=== PATIENT | male | born 1950 | race Caucasian/White ===

== ENCOUNTER → 2017-05-09 | Day surgery (SDC) | payer BC ==
[2017-05-01 13:44] VITALS: BMI 37.0
[~2017-05-09] VITALS: Ht 177.8 cm; Wt 116.8 kg
[~2017-05-09] MED LIST: AMIL5TAB15 PO; ASPCH81X PO; GLC/500 PO; HYDR-4717 PO; LEVO75TA5 PO; LIDOCAINE HCL 2% 2 ML VIAL (20MG/ML) ONE; LNX125 PO; LOSA1TAB38 PO; METO25TA3 PO; OMEGCAP2 PO; POTA1TAB97 PO; PROPOFOL IV EMULSION 10 MG/ML 20 ML VIAL IV ONE; ROSU5TAB PO; SODIUM CHLORIDE 0.9% 500ML 500 ML IV ONE; TERA5CAP PO; WARF5TAB90 PO
[2017-05-09 09:48] VITALS: Ht 177.8 cm; Wt 116.8 kg
--- NOTE | 2017-05-09 09:58 | Endo History and Physical ---
History & Physical Date of Service: May 09, 2017. Chief Complaint: poss hem stools Referring Physician: dr. galvan History of Present Illness 66 yo presenting for colonoscopy for heme positive stool Past Medical History Atrial Fibrillation, Arthritis, Male Genitourinary Prob., Sleep Apnea, Hypertension, Thyroid Disease Past Surgical History Hx Cardiac Surgery: Yes (HEART CATH-NO STENTS) Hx Internal Defibrillator: No Hx Pacemaker: No Hx Abdominal Surgery: Yes (UMBILICAL HERNIA WITH MESH) Hx of Implantable Prosthesis: No Hx Post-Op Nausea and Vomiting: No Hx Cancer Surgery: No Hx Thoracic Surgery: No Hx Orthopedic: No Hx Urinary Tract Surgery: Yes (CYSTOSCOPY WITH STENTS X 2, URETHRA REPAIR WITH GRAFTING) Family History None Social History Smoking Status: Never Smoker Hx Substance Use: No Hx Alcohol Use: Yes (RARELY) Allergies Coded Allergies: Amlodipine (Verified Allergy, Severe, LE swelling and calves got "rock hard", 05/01/17) Penicillins (Verified Allergy, Mild, RASH, 05/01/17) Amoxicillin (Verified Allergy, Unknown, RASH, 05/01/17) Chlorhexidine (Verified Allergy, Unknown, RASH, SKIN TURNED RED AND PEELED , 05/01/17) Current Medications Reported Home Medications Medications Dose Route/Sig Max Daily Dose Days Date Category Dose Instructions Toprol Xl (Metoprolol Succinate) 25 Mg Tabcr 25 Mg PO QAM 05/01/17 Reported Aspirin Chewable (Aspirin) 81 Mg Chew 81 Mg PO Q2D 05/01/17 Reported Fish Oil (Mina-3 Fatty Acids) 1 Cap Cap 1 Cap PO QAM 05/01/17 Reported Crestor (Rosuvastatin Calcium) 5 Mg Tab 5 Mg PO Q2D 05/01/17 Reported Cozaar (Losartan Potassium) 100 Mg Tab 100 Mg PO QPM 05/01/17 Reported Levothyroxine Sodium 75 Mcg Tab 1 Tab PO QAM 90 05/01/17 Reported Hytrin (Terazosin HCl) 5 Mg Cap 5 Mg PO HS 05/01/17 Reported Amiloride Hcl 5 Mg Tab 1 Tab PO QPM 05/01/17 Reported Glucophage (Metformin Hcl) 500 Mg Tab 500 Mg PO QAM 05/01/17 Reported Digoxin 0.125 Mg Tab 1 Tab PO QAM 05/01/17 Reported Coumadin (Warfarin Sodium) 5 Mg Tab 5 Mg PO 6XWK 05/01/17 Reported Coumadin (Warfarin Sodium) 5 Mg Tab 0.5 Tab PO WK 05/01/17 Reported K-Tab (Potassium Chloride) 20 Meq Tab 1 Tab PO TID 05/01/17 Reported Apresoline (Hydralazine Hcl) 50 Mg Tab 25 Mg PO HS 05/01/17 Reported Apresoline (Hydralazine Hcl) 50 Mg Tab 50 Mg PO BID 05/01/17 Reported TAKES IN AM AND AT NOON Vital Signs Weight (Kilograms): 116.82 Height (Feet): 5 Height (Inches): 10 Physical Exam General Appearance: WD/WN, no apparent distress Respiratory/Chest: Respiratory effort: no dyspnea Auscultation: breath sounds normal, CTA except as noted Cardiovascular: Apical Impulse: not displaced Heart Auscultation: RRR, normal S1, normal S2 Abdomen: Bowel Sounds: normal Inspection & Palpation: soft, non-distended Assessment and Plan 66 yo presenting for colonoscopy for heme positive stools
--- NOTE | 2017-05-09 10:52 | GI REPORT ---
Procedure Date: 05/09/2017 9:53 AM Procedure: Colonoscopy Indications: Screening for colorectal malignant neoplasm Medicines: General Anesthesia Complications: No immediate complications. Estimated Blood Loss: Estimated blood loss: none. Procedure: Pre-Anesthesia Assessment: - Pre-Anesthesia Assessment: - Prior to the procedure, a History and Physical was performed, and patient medications, allergies and sensitivities were reviewed. The patient's tolerance of previous anesthesia was reviewed. Please see [facility] for complete details. - The risks and benefits of the procedure and the sedation options and risks were discussed with the patient. All questions were answered and informed consent was obtained. - Patient identification and proposed procedure were verified prior to the procedure by the physician and the nurse. The procedure was verified in the pre-procedure area in the procedure room. After obtaining informed consent, the endoscope was passed carefully and meticuously under direct vision and only advanced when the lumen was clearly identified, C02 insuflation was utilized throughout the entirity of the procedure. Throughout the procedure, the patient's blood pressure, pulse, and oxygen saturations were monitored continuously. After I obtained informed consent, the scope was passed under direct vision. Throughout the procedure, the patient's blood pressure, pulse, and oxygen saturations were monitored continuously. The Scope was introduced through the anus and advanced to the terminal ileum, with identification of the appendiceal orifice and IC valve. The colonoscopy was performed without difficulty. The patient tolerated the procedure well. The quality of the bowel preparation was good. Findings: Four sessile polyps were found in the ascending colon. The polyps were 3 to 4 mm in size. These polyps were removed with a cold snare. Resection and retrieval were complete. Two sessile polyps were found in the transverse colon. The polyps were 3 to 5 mm in size. These polyps were removed with a cold snare. Resection and retrieval were complete. Internal hemorrhoids were found during retroflexion. The terminal ileum appeared normal. The exam was otherwise without abnormality on direct and retroflexion views. Impression: - Four 3 to 4 mm polyps in the ascending colon, removed with a cold snare. Resected and retrieved. - Two 3 to 5 mm polyps in the transverse colon, removed with a cold snare. Resected and retrieved. - Internal hemorrhoids. - The examined portion of the ileum was normal. - The examination was otherwise normal on direct and retroflexion views. Recommendation: - Discharge patient to home (with escort). - Await pathology results. - Repeat colonoscopy in 3 years for surveillance based on pathology results. - Re-start coumadin tomorrow. Jarad Raymundo MD 05/09/2017 10:52:36 AM This report has been signed electronically. Note Initiated On: 05/09/2017 9:53 AM I attest to the content of the Intraoperative Record and orders documented therein, exceptions below
--- NOTE | 2017-05-09 10:55 | Discharge Instructions ---
Endoscopy Patient Instructions Date / Procedure(s) Performed May 09, 2017. Colonoscopy Allergy Information Coded Allergies: Amlodipine (Verified Allergy, Severe, LE swelling and calves got "rock hard", 05/01/17) Penicillins (Verified Allergy, Mild, RASH, 05/01/17) Amoxicillin (Verified Allergy, Unknown, RASH, 05/01/17) Chlorhexidine (Verified Allergy, Unknown, RASH, SKIN TURNED RED AND PEELED , 05/01/17) Discharge Date / Findings May 09, 2017. Findings: Four sessile polyps were found in the ascending colon. The polyps were 3 to 4 mm in size. These polyps were removed with a cold snare. Resection and retrieval were complete. Two sessile polyps were found in the transverse colon. The polyps were 3 to 5 mm in size. These polyps were removed with a cold snare. Resection and retrieval were complete. Internal hemorrhoids were found during retroflexion. The terminal ileum appeared normal. The exam was otherwise without abnormality on direct and retroflexion views. Recommendation: - Discharge patient to home (with escort). - Await pathology results. - Repeat colonoscopy in 3 years for surveillance based on pathology results. - Re-start coumadin tomorrow. Medication Instructions Stopped Medication(s): coummadin stopped saturday 4 days Provider Instructions Activity Restrictions - No exercising or heavy lifting for 24 hours. - Do not drink alcohol the day of the procedure. - Do not drive a car or operate machinery until the day after the procedure. - Do not make any important decisions or sign important papers in 24 hours after the procedure. Following Day: - Return to full activity which may include returning to work/school. Diet Start your diet with liquids and light foods (jello, soup, juice, toast). Then eat your usual diet if not nauseated. Treatment For Common After Affects For mild abdominal pain, bloating, or excessive gas: - Rest - Eat lightly - Lie on right side Follow-Up Information Follow-up with dr. galvan as scheduled Anesthesia Information What You Should Know You have had a procedure that required some medicine to reduce anxiety and discomfort. This treatment is called moderate sedation. After receiving the treatment, you may be sleepy, but you will be able to breathe on your own. The effects of the treatment may last for several hours. Follow these instructions along with Activity/Diet recommendations noted above: * Do NOT do anything where dizziness or clumsiness would be dangerous. * Rest quietly at home today, then you can be up and about tomorrow. * Have a responsible person stay with you the rest of today. * You may have had an I.V. today. If so, you may take the dressing off later today. Recommendations Call your doctor if: * Trouble breathing * Continuous vomiting for more than 24 hours * Temperature above 101 degrees * Severe abdominal pain or bloating * Pain not relieved by pain medicine ordered * There is increased drainage or redness from any incision * A large amount of rectal bleeding greater than 2-3 tablespoons. (If you had a polyp/s removed or have hemorrhoids, a small amount of blood - from the rectum is to be expected.) * You have any unanswered questions or concerns. IN THE EVENT OF A SERIOUS EMERGENCY, GO TO THE NEAREST EMERGENCY ROOM Your discharge instructions were prepared by provider Jarad Raymundo. Patient Instructions Signature Page Becca Edwards Patient (or Guardian) Signature/Date: I have read and understand the instructions given to me by my caregivers. Caregiver/RN/Doctor Signature/Date: The above-named patient and/or guardian has received patient instructions on this date. + Original Patient Signature Page (only) stays with chart. Please make copy for patient.
--- NOTE | 2017-05-09 11:25 | Anesthesiology Progress Note ---
Anesthesia Post Op Note Date & Time May 09, 2017 at 11:22 Vital Signs Pain Intensity: 0 Vital Signs Past 12 Hours Date Time Temp Pulse Resp B/P (MAP) Pulse Ox O2 Delivery O2 Flow Rate FiO2 05/09/17 09:56 36.7 80 18 175/96 (122) 96 Room Air Notes Mental Status: alert / awake / arousable, participated in evaluation Pt Amnestic to Procedure: Yes Nausea / Vomiting: adequately controlled Pain: adequately controlled Airway Patency, RR, SpO2: stable & adequate BP & HR: stable & adequate Hydration State: stable & adequate Anesthetic Complications: no major complications apparent Pt has known high blood pressure. He was 170s/90 on admission. He did not take his blood pressure pills today. In recovery, his blood pressure is 180s/100s. I spoke to the patient and his , who is a RN, and I instructed him to take his blood pressure pills once he got home. They were both understanding. Pt is otherwise stable without any symptoms.
[2017-05-09 11:34] VITALS: BP 188/105; PULSE 78; O2SAT 94
== END | disposition home or self-care (01) ==
LOC: C.GI 09:11
PROVIDERS: ATTEND Internal Medicine
DX: K92.1 Melena (principal); D12.2 Benign neoplasm of ascending colon; D12.3 Benign neoplasm of transverse colon; K64.8 Other hemorrhoids; I10 Essential (primary) hypertension; I48.91 Unspecified atrial fibrillation; G47.33 Obstructive sleep apnea (adult) (pediatric); Z88.1 Allergy status to other antibiotic agents; Z88.0 Allergy status to penicillin; Z98.890 Other specified postprocedural states; Z79.82 Long term (current) use of aspirin; Z79.899 Other long term (current) drug therapy; Z79.01 Long term (current) use of anticoagulants

== ENCOUNTER 2018-08-23 13:51 | Inpatient (IN) ==
[2018-08-23] MEDS ORDERED: SODIUM CHLORIDE 0.9% 1000ML 1,000 ML IV SCH ×2 (14:15→20:22)
[2018-08-23 14:56] LABS: Basophils # (auto) 0.01 K/uL (0-0.2); Basophils % (auto) 0.1 %; Hematocrit (blood only) 47.1 % (42-52); Hemoglobin 15.9 g/dL (14.0-18.0); Immature Granulocytes # (auto) 0.06 K/uL (0.00-0.02); Immature Granulocytes % (auto) 0.8 %; Lymphocytes # (auto) 0.78 K/uL (1.2-3.4); Lymphocytes % (auto) 9.8 %; Mean Corpuscular Hgb Conc 33.8 g/dL (32-36); Mean Corpuscular Volume 94.4 fL (80-100); Mean Platelet Volume 10.2 fL (7.4-10.4); Monocytes # (auto) 0.63 K/uL (0.11-0.59); Monocytes % (auto) 7.9 %; Neutrophils # (auto) 6.52 K/uL (1.4-6.5); Neutrophils % (auto) 81.4 %; Platelet Count 169 K/uL (130-400); RDW Coefficient of Variation 13.7 % (11.5-14.5); RDW Standard Deviation 46.8 fL (36.4-46.3); Red Blood Count 4.99 M/uL (4.7-6.1)
[2018-08-23 15:10] LABS: Alanine Aminotransferase 31 U/L (12-78); Albumin Level 3.4 gm/dl (3.4-5.0); Aspartate Aminotransferase 21 U/L (15-37); BUN Creatinine Ratio 8.6 (10-20); Blood Urea Nitrogen 10 mg/dl (7-18); Calcium 8.5 mg/dl (8.5-10.1); Carbon Dioxide 29 mmol/L (21-32); Chloride 99 mmol/L (98-107); Creatinine Clr Calc Pharmacy 83.1 ml/min; Est GFR (African American) 78.9; Est GFR (Non-African American) 68.1; Glucose 162 mg/dl (70-99); Magnesium 1.8 mg/dl (1.8-2.4); Potassium 3.2 mmol/L (3.5-5.1); Sodium 134 mmol/L (136-145)
--- NOTE | 2018-08-23 15:13 | Emergency Department Note ---
Entered by Augusto Morris acting as a scribe for ED Provider Note CHIEF COMPLAINT: Weakness HISTORY OF PRESENT ILLNESS: The patient is a 67 year old male that presents to the ED with complaints of constant generalized weakness that started about 4 days ago. He also has had a low grade fever, cough, and has been urinating more frequently. He did fall prior to arrival after getting dizzy and hit his left shoulder but did not lose consciousness or hit his head. The patient did miss his noon time medications which consist of potassium, Losartan, Digoxin, and Hydralazine. All of these medications have been consistent except for his Losartan that recently was lowered. He also fell on the ice 4 days ago as well as a recent fall in his garage. Per the the patient does run a low potassium at baseline. He does have a history of Afib and is on Coumadin. He notes no relieving factors. Pt denies LOC, headache, chills, diaphoresis, visual changes, neck pain, chest pain, nausea, vomiting, abdominal pain, back pain, melena, hematochezia, numbness, lymphadenopathy, rash, or other complaints. REVIEW OF SYSTEMS: See HPI for pertinent positives and negatives. A total of ten systems were reviewed and were otherwise negative. PMHx/PSHx: UTI, Afib (on Coumadin), HLD, hypertension, kidney stonespneumonia, hernia repair, chronic rhinitis, sinus surgery, kidney surgery, and tonsillectomy SOCIAL HISTORY: Patient lives at home. PHYSICAL EXAM: GENERAL: Awake, alert, mild ill-appearing, in no distress HENT: Normocephalic, atraumatic. Oropharynx unremarkable. EYES: Normal conjunctiva. Sclera non-icteric. NECK: Inspection normal. Non-tender. Supple. No nuchal rigidity. FROM. No masses. RESPIRATORY: Clear to auscultation. No wheezes. No rales. Normal respiratory effort. CARDIAC: Normal rate. Irregular rhythm. No murmurs. No rubs. Extremities warm and well perfused. Pulses equal. No JVD. GI: Soft, non-distended. No tenderness to palpation. No rebound or guarding. No masses. RECTAL: Deferred. MUSCULOSKELETAL: Chest examination reveals no tenderness. The back is symmetrical on inspection without obvious abnormality. There is no CVA tenderness to palpation. No joint edema. Contusion on the left posterior shoulder. LOWER EXTREMITIES: Calves are equal size bilaterally and non-tender. No edema. No discoloration. NEURO: Normal sensorium. No sensory or motor deficits noted. SKIN: No rash or jaundice noted. EMERGENCY DEPARTMENT COURSE: 1414: Past medical records reviewed. The patient was evaluated in room B10, and a complete history and physical examination were performed. 1608: I updated the patient and he is doing well. 1712: The patient is still doing well and I updated him on labs and plan. 1747: I spoke to Yolanda Berumen PA-C about the patient's case and she is accepting him for further evaluation. 1757: I updated the patient on the admission. MEDICAL DECISION MAKING: Nursing notes reviewed and agree them. Additional history obtained from patient's . The patient's history was concerning for weakness. Differential diagnosis: Etiologies such as metabolic, infection, hypo/hyperglycemia, electrolyte abnormalities, cardiac sources, intracerebral event, toxicologic, neurologic, as well as others were entertained. Physical examination: As above. ER treatment provided: IV Lock Normal saline hydration phototypesetting equipment monitor Patient was given 75 mg of hydralazine and 75 mg of losartan that he takes midday at home. On reassessment the patient felt better. IV Rocephin Oral Tamiflu Diagnostics interpretation by me: ECG: Shows A. fib with lateral T wave inversions which are new. The labs revealed an unremarkable CBC. Mild hypokalemia noted as well as hyperglycemia on chemistry panel. Troponin negative. Urinalysis concerning for infection. Influenza testing positive. Imaging studies: Chest x-ray negative for pneumonia. The patient has acute ECG changes. He has influenza. He is weak. He also has a UTI. Consultation: A consultation was placed with the hospitalist. The case was discussed and diagnostics were reviewed. The patient was evaluated in the ER for further treatment. IMPRESSION: Influenza A Acute elective cardiogram changes Influenza Hypokalemia PLAN: Evaluated by hospitalist The scribe's documentation has been prepared under my direction and personally reviewed by me in its entirety. I confirm that the note above accurately reflects all work, treatment, procedures, and medical decision making performed by me. Impression & Plan Influenza A Past Med/Surg History Medical History History of recurrent UTI (urinary tract infection) HTN (hypertension) (Chronic) HLD (hyperlipidemia) (Chronic) Atrial fibrillation (Chronic) Metabolic syndrome (Chronic) RANDALL (obstructive sleep apnea) (Chronic) Hypothyroidism (Chronic) Chronic rhinitis (Chronic 06/12/11) Chronic rhinitis Pyelonephritis Sepsis UTI (urinary tract infection) Surgical History History of lithotripsy (Chronic) History of kidney surgery (Resolved) "transurethral removal obstruct/ureter renal pelvis 02/13/08" History of sinus surgery (Resolved) History of hernia repair (Resolved) "umbilical hernia repair performed by Dr. Abrams 11/2014" History of tonsillectomy and adenoidectomy (Resolved) H/O sinus surgery History of kidney surgery removal of transurethreal obstruction History of tonsillectomy and adenoidectomy Hx of umbilical hernia repair Family History Father Heart attack Lymphoma Mother T2DM (type 2 diabetes mellitus) Pancreatic cancer Social History marital status: Current Living Situation: Spouse Other Information That Helps Us Care for You: No Feels Safe at Home: Yes Safety Concerns: Feels Safe At This Time Smoking Status: Never smoker Do You Dip or Chew Tobacco: No Hx Alcohol Use: No Hx Substance Use: No Beliefs That Will Affect Care: Mormonism Mormonism Beliefs: Catholic Preferred Language: Chilean Communication Ability: Effective Art Therapy Certified Supervisor Required: No Results & Data Vital Signs Vital Signs - 24 hr 08/23/18 13:56 08/23/18 14:30 08/23/18 15:52 Temperature 37.9 C H Temperature Source Oral Sepsis Recent Fever Within 48 Hours No Sepsis New/Unexplained Change in Mental Status No Sepsis Action Taken by Nursing No Action Required Pulse Rate 107 H Pulse Rate [Left Apical] 88 Pulse Rhythm Irregular Pulse Rhythm [Left Apical] Regular Pulse Strength [Left Apical] Normal Respiratory Rate 20 Respiratory Effort / Characteristics Non-Labored Spontaneous Respiratory Depth Normal Normal Respiratory Pattern Regular Blood Pressure 196/111 H Blood Pressure [Left Arm] 177/105 H Blood Pressure Mean 139 Blood Pressure Mean [Left Arm] 129 Blood Pressure Position [Left Arm] Lying Pulse Oximetry 92 95 91 Oxygen Delivery Method Room Air Room Air Room Air 08/23/18 16:21 08/23/18 19:32 Temperature Temperature Source Sepsis Recent Fever Within 48 Hours Sepsis New/Unexplained Change in Mental Status Sepsis Action Taken by Nursing Pulse Rate Pulse Rate [Left Apical] 95 H Pulse Rhythm Pulse Rhythm [Left Apical] Irregular Pulse Strength [Left Apical] Normal Respiratory Rate 21 Respiratory Effort / Characteristics Non-Labored Spontaneous Labored Respiratory Depth Normal Respiratory Pattern Blood Pressure Blood Pressure [Left Arm] 162/84 H Blood Pressure Mean Blood Pressure Mean [Left Arm] 110 Blood Pressure Position [Left Arm] Sitting Pulse Oximetry Oxygen Delivery Method Room Air Home Medications Current Medication List: was personally reviewed by me Laboratory Data Attestation: I reviewed the patient's lab results. Result diagrams: 08/23/18 14:30 08/23/18 14:30 Lab Results 08/23/18 08/23/18 08/23/18 Range/Units 14:30 14:30 14:30 WBC 8.00 (4.8-10.8) K/uL RBC 4.99 (4.7-6.1) M/uL Hgb 15.9 (14.0-18.0) g/dL Hct 47.1 (42-52) % MCV 94.4 (80-100) fL MCH 31.9 (25-34) pg MCHC 33.8 (32-36) g/dL RDW Std Deviation 46.8 H (36.4-46.3) fL RDW Coeff of Radha 13.7 (11.5-14.5) % Plt Count 169 (130-400) K/uL MPV 10.2 (7.4-10.4) fL Immature Gran % (Auto) 0.8 % Neut % (Auto) 81.4 % Lymph % (Auto) 9.8 % Lassen % (Auto) 7.9 % Eos % (Auto) 0.0 % Baso % (Auto) 0.1 % Immature Gran # (Auto) 0.06 H (0.00-0.02) K/uL Neut # (Auto) 6.52 H (1.4-6.5) K/uL Lymph # (Auto) 0.78 L (1.2-3.4) K/uL Lassen # (Auto) 0.63 H (0.11-0.59) K/uL Eos # (Auto) 0.00 (0-0.5) K/uL Baso # (Auto) 0.01 (0-0.2) K/uL ESR (0-14) mm/hr PT (9.0-12.0) Seconds INR (0.9-1.1) Sodium 134 L (136-145) mmol/L Potassium 3.2 L (3.5-5.1) mmol/L Chloride 99 (98-107) mmol/L Carbon Dioxide 29 (21-32) mmol/L Anion Gap 6.0 (3-11) BUN 10 (7-18) mg/dl Creatinine 1.12 (0.6-1.4) mg/dl Est Cr Clr Drug Dosing 83.1 ml/min Est GFR ( Amer) 78.9 Est GFR (Non-Af Amer) 68.1 BUN/Creatinine Ratio 8.6 L (10-20) Glucose 162 H (70-99) mg/dl POC Lactic Acid Wayne (0.90-1.70) mmol/L Lactate (0.4-2.0) mmol/L Calcium 8.5 (8.5-10.1) mg/dl Magnesium 1.8 (1.8-2.4) mg/dl Total Bilirubin 1.0 (0.2-1) mg/dl AST 21 (15-37) U/L ALT 31 (12-78) U/L Alkaline Phosphatase 136 H (45-117) U/L Troponin I < 0.015 (0-0.045) ng/ml Total Protein 7.6 (6.4-8.2) gm/dl Albumin 3.4 (3.4-5.0) gm/dl Globulin 4.2 H (2.5-4.0) gm/dl Albumin/Globulin Ratio 0.8 L (0.9-2) Procalcitonin < 0.05 (0-0.5) ng/ml TSH 1.330 (0.300-4.500) uIu/ml Urine Color Urine Appearance (Clear) Urine pH (4.5-7.5) Ur Specific [place] (1.000-1.030) Urine Protein (Negative) Urine Glucose (UA) (Negative) Urine Ketones (Negative) Urine Blood (Negative) Urine Nitrite (Negative) Urine Bilirubin (Negative) Urine Urobilinogen (Negative) Ur Leukocyte Esterase (Negative) Urine WBC (Auto) (0-5) /hpf Urine RBC (Auto) (0-4) /hpf U Hyaline Cast (Auto) (0-5) /lpf U Epithel Cells (Auto) (0-5) /lpf Urine Bacteria (Auto) (Negative) Urine Yeast Digoxin (0.8-2.0) ng/ml Influenza Type A Ag (Neg) Influenza Type B Ag (Neg) 08/23/18 08/23/18 08/23/18 Range/Units 14:30 14:30 14:34 WBC (4.8-10.8) K/uL RBC (4.7-6.1) M/uL Hgb (14.0-18.0) g/dL Hct (42-52) % MCV (80-100) fL MCH (25-34) pg MCHC (32-36) g/dL RDW Std Deviation (36.4-46.3) fL RDW Coeff of Radha (11.5-14.5) % Plt Count (130-400) K/uL MPV (7.4-10.4) fL Immature Gran % (Auto) % Neut % (Auto) % Lymph % (Auto) % Lassen % (Auto) % Eos % (Auto) % Baso % (Auto) % Immature Gran # (Auto) (0.00-0.02) K/uL Neut # (Auto) (1.4-6.5) K/uL Lymph # (Auto) (1.2-3.4) K/uL Lassen # (Auto) (0.11-0.59) K/uL Eos # (Auto) (0-0.5) K/uL Baso # (Auto) (0-0.2) K/uL ESR 47 H (0-14) mm/hr PT 20.1 H (9.0-12.0) Seconds INR 2.1 H (0.9-1.1) Sodium (136-145) mmol/L Potassium (3.5-5.1) mmol/L Chloride (98-107) mmol/L Carbon Dioxide (21-32) mmol/L Anion Gap (3-11) BUN (7-18) mg/dl Creatinine (0.6-1.4) mg/dl Est Cr Clr Drug Dosing ml/min Est GFR ( Amer) Est GFR (Non-Af Amer) BUN/Creatinine Ratio (10-20) Glucose (70-99) mg/dl POC Lactic Acid Wayne (0.90-1.70) mmol/L Lactate (0.4-2.0) mmol/L Calcium (8.5-10.1) mg/dl Magnesium (1.8-2.4) mg/dl Total Bilirubin (0.2-1) mg/dl AST (15-37) U/L ALT (12-78) U/L Alkaline Phosphatase (45-117) U/L Troponin I (0-0.045) ng/ml Total Protein (6.4-8.2) gm/dl Albumin (3.4-5.0) gm/dl Globulin (2.5-4.0) gm/dl Albumin/Globulin Ratio (0.9-2) Procalcitonin (0-0.5) ng/ml TSH (0.300-4.500) uIu/ml Urine Color Urine Appearance (Clear) Urine pH (4.5-7.5) Ur Specific [place] (1.000-1.030) Urine Protein (Negative) Urine Glucose (UA) (Negative) Urine Ketones (Negative) Urine Blood (Negative) Urine Nitrite (Negative) Urine Bilirubin (Negative) Urine Urobilinogen (Negative) Ur Leukocyte Esterase (Negative) Urine WBC (Auto) (0-5) /hpf Urine RBC (Auto) (0-4) /hpf U Hyaline Cast (Auto) (0-5) /lpf U Epithel Cells (Auto) (0-5) /lpf Urine Bacteria (Auto) (Negative) Urine Yeast Digoxin 0.4 L (0.8-2.0) ng/ml Influenza Type A Ag (Neg) Influenza Type B Ag (Neg) 08/23/18 08/23/18 08/23/18 Range/Units 14:40 14:50 15:10 WBC (4.8-10.8) K/uL RBC (4.7-6.1) M/uL Hgb (14.0-18.0) g/dL Hct (42-52) % MCV (80-100) fL MCH (25-34) pg MCHC (32-36) g/dL RDW Std Deviation (36.4-46.3) fL RDW Coeff of Radha (11.5-14.5) % Plt Count (130-400) K/uL MPV (7.4-10.4) fL Immature Gran % (Auto) % Neut % (Auto) % Lymph % (Auto) % Lassen % (Auto) % Eos % (Auto) % Baso % (Auto) % Immature Gran # (Auto) (0.00-0.02) K/uL Neut # (Auto) (1.4-6.5) K/uL Lymph # (Auto) (1.2-3.4) K/uL [place]assen # (Auto) (0.11-0.59) K/uL Eos # (Auto) (0-0.5) K/uL Baso # (Auto) (0-0.2) K/uL ESR (0-14) mm/hr PT (9.0-12.0) Seconds INR (0.9-1.1) Sodium (136-145) mmol/L Potassium (3.5-5.1) mmol/L Chloride (98-107) mmol/L Carbon Dioxide (21-32) mmol/L Anion Gap (3-11) BUN (7-18) mg/dl Creatinine (0.6-1.4) mg/dl Est Cr Clr Drug Dosing ml/min Est GFR ( Amer) Est GFR (Non-Af Amer) BUN/Creatinine Ratio (10-20) Glucose (70-99) mg/dl POC Lactic Acid Wayne 2.26 H (0.90-1.70) mmol/L Lactate (0.4-2.0) mmol/L Calcium (8.5-10.1) mg/dl Magnesium (1.8-2.4) mg/dl Total Bilirubin (0.2-1) mg/dl AST (15-37) U/L ALT (12-78) U/L Alkaline Phosphatase (45-117) U/L Troponin I (0-0.045) ng/ml Total Protein (6.4-8.2) gm/dl Albumin (3.4-5.0) gm/dl Globulin (2.5-4.0) gm/dl Albumin/Globulin Ratio (0.9-2) Procalcitonin (0-0.5) ng/ml TSH (0.300-4.500) uIu/ml Urine Color Dark Yellow Urine Appearance Clear (Clear) Urine pH 7.0 (4.5-7.5) Ur Specific [place] 1.016 (1.000-1.030) Urine Protein 2+ H (Negative) Urine Glucose (UA) Negative (Negative) Urine Ketones Negative (Negative) Urine Blood 2+ H (Negative) Urine Nitrite Positive H (Negative) Urine Bilirubin Negative (Negative) Urine Urobilinogen Negative (Negative) Ur Leukocyte Esterase Trace H (Negative) Urine WBC (Auto) >30 H (0-5) /hpf Urine RBC (Auto) 10-30 H (0-4) /hpf U Hyaline Cast (Auto) 1-5 (0-5) /lpf U Epithel Cells (Auto) 0-5 (0-5) /lpf Urine Bacteria (Auto) 1+ H (Negative) Urine Yeast Not Reportable Digoxin (0.8-2.0) ng/ml Influenza Type A Ag Pos for Influ A A* (Neg) Influenza Type B Ag Neg for Influ B (Neg) 08/23/18 Range/Units 20:18 WBC (4.8-10.8) K/uL RBC (4.7-6.1) M/uL Hgb (14.0-18.0) g/dL Hct (42-52) % MCV (80-100) fL MCH (25-34) pg MCHC (32-36) g/dL RDW Std Deviation (36.4-46.3) fL RDW Coeff of Radha (11.5-14.5) % Plt Count (130-400) K/uL MPV (7.4-10.4) fL Immature Gran % (Auto) % Neut % (Auto) % Lymph % (Auto) % Lassen % (Auto) % Eos % (Auto) % Baso % (Auto) % Immature Gran # (Auto) (0.00-0.02) K/uL Neut # (Auto) (1.4-6.5) K/uL Lymph # (Auto) (1.2-3.4) K/uL Lassen # (Auto) (0.11-0.59) K/uL Eos # (Auto) (0-0.5) K/uL Baso # (Auto) (0-0.2) K/uL ESR (0-14) mm/hr PT (9.0-12.0) Seconds INR (0.9-1.1) Sodium (136-145) mmol/L Potassium (3.5-5.1) mmol/L Chloride (98-107) mmol/L Carbon Dioxide (21-32) mmol/L Anion Gap (3-11) BUN (7-18) mg/dl Creatinine (0.6-1.4) mg/dl Est Cr Clr Drug Dosing ml/min Est GFR ( Amer) Est GFR (Non-Af Amer) BUN/Creatinine Ratio (10-20) Glucose (70-99) mg/dl POC Lactic Acid Wayne (0.90-1.70) mmol/L Lactate 2.2 H* (0.4-2.0) mmol/L Calcium (8.5-10.1) mg/dl Magnesium (1.8-2.4) mg/dl Total Bilirubin (0.2-1) mg/dl AST (15-37) U/L ALT (12-78) U/L Alkaline Phosphatase (45-117) U/L Troponin I (0-0.045) ng/ml Total Protein (6.4-8.2) gm/dl Albumin (3.4-5.0) gm/dl Globulin (2.5-4.0) gm/dl Albumin/Globulin Ratio (0.9-2) Procalcitonin (0-0.5) ng/ml TSH (0.300-4.500) uIu/ml Urine Color Urine Appearance (Clear) Urine pH (4.5-7.5) Ur Specific [place] (1.000-1.030) Urine Protein (Negative) Urine Glucose (UA) (Negative) Urine Ketones (Negative) Urine Blood (Negative) Urine Nitrite (Negative) Urine Bilirubin (Negative) Urine Urobilinogen (Negative) Ur Leukocyte Esterase (Negative) Urine WBC (Auto) (0-5) /hpf Urine RBC (Auto) (0-4) /hpf U Hyaline Cast (Auto) (0-5) /lpf U Epithel Cells (Auto) (0-5) /lpf Urine Bacteria (Auto) (Negative) Urine Yeast Digoxin (0.8-2.0) ng/ml Influenza Type A Ag (Neg) Influenza Type B Ag (Neg) Administered Medications Discontinued Medications Hydralazine HCl (Apresoline) 75 mg PO NOW STA Stop: 08/23/18 14:16 Last Admin: 08/23/18 15:20 Dose: 75 mg Sodium Chloride (Nss 1000ml) 1,000 mls @ 125 mls/hr IV .Q8H CANDICE Stop: 08/23/18 22:14 Last Admin: 08/23/18 15:20 Dose: 125 mls/hr Losartan Potassium (Cozaar) 50 mg PO QAM CANDICE Stop: 09/23/18 08:59 Last Admin: 08/23/18 16:16 Dose: 50 mg Losartan Potassium (Cozaar) 25 mg PO QAM [facility] Stop: 09/23/18 08:59 Last Admin: 08/23/18 16:17 Dose: 25 mg Oseltamivir Phosphate (Tamiflu) 75 mg PO NOW [facility] Stop: 08/23/18 15:59 Last Admin: 08/23/18 16:16 Dose: 75 mg Imaging Data Radiologist's Impression: Radiology results as stated below per my review and the radiologist's interpretation: XR chest 1V portable HISTORY: 67 years-old Male weakness acute weakness with altered mental status COMPARISON: Chest radiograph 04/13/2016 TECHNIQUE: Portable AP view of the chest FINDINGS: Cardiac silhouette is enlarged, unchanged. Status post removal of the previously described left PICC. Pulmonary vascular congestion with unchanged mild interstitial coarsening which appears chronic. No pneumothorax, pleural effusion or lobar airspace consolidation. Mild right hemidiaphragm elevation. Mild subsegmental atelectasis/scarring about the lateral left lung base. Degenerative changes of the shoulders and spine. IMPRESSION: 1. Cardiomegaly with pulmonary vascular congestion. 2. Chronic interstitial coarsening. The above report was generated using voice recognition software. It may contain grammatical, syntax or spelling errors. Electronically signed by: Christian Cavazos M.D. 08/23/2018 3:24 PM ECG Data Attestation: I personally reviewed and interpreted this ECG as follows: Indication: weakness Rate (beats per minute): 95 Rhythm: atrial fibrillation Findings: + T-wave inversion (Lateral); no PVC Comparison ECG Date: from (04/13/16) Change: the following changes noted (Lateral T wave inversions are new) Blood Pressure Blood Pressure Findings: Elevated blood pressure Blood Pressure Disposition: further management by hospitalist Discharge Plan Visit Data *Final* Discharge Date/Time: 08/23/18 19:32 Chief Complaint: Weakness Stated Complaint: WEAKNESS, CHEST CONGESTION ED Provider: Jasen Blanchard Discharge Problem: Influenza A Patient Disposition: Admitted As Inpatient Discharge Instructions Interventions: ED Discharge Assessment Last Done: 08/23/18 19:32 The scribe's documentation has been prepared under my direction and personally reviewed by me in its entirety. I confirm that the note above accurately reflects all work, treatment, procedures, and medical decision making performed by me.
[2018-08-23 15:20] LABS: Albumin Globulin Ratio 0.8 (0.9-2); Alkaline Phosphatase 136 U/L (45-117); Globulin 4.2 gm/dl (2.5-4.0); Total Protein 7.6 gm/dl (6.4-8.2); Troponin I < 0.015 ng/ml (0-0.045)
--- NOTE | 2018-08-23 15:25 | XRay Report ---
XR chest 1V portable HISTORY: 67 years-old Male weakness acute weakness with altered mental status COMPARISON: Chest radiograph 04/13/2016 TECHNIQUE: Portable AP view of the chest FINDINGS: Cardiac silhouette is enlarged, unchanged. Status post removal of the previously described left PICC. Pulmonary vascular congestion with unchanged mild interstitial coarsening which appears chronic. No pneumothorax, pleural effusion or lobar airspace consolidation. Mild right hemidiaphragm elevation. M ild subsegmental atelectasis/scarring about the lateral left lung base. Degenerative changes of the s houlders and spine. IMPRESSION: 1. Cardiomegaly with pulmonary vascular congestion. 2. Chronic interstitial coarsening. The above report was generated using voice recognition software. It may contain grammatical, syntax o r spelling errors. Electronically signed by: Christian Cavazos M.D. 08/23/2018 3:24 PM
[2018-08-23 15:56] LABS: Appearance Urine Clear (Clear); Bacteria Urine Automated 1+ (Negative); Bilirubin Urine Negative (Negative); Color Urine Dark Yellow; Epithelial Cell Urine Auto 0-5 /lpf (0-5); Glucose Urine UA Negative (Negative); Ketones Urine Negative (Negative); Leukocyte Esterase Urine Trace (Negative); Nitrite Urine Positive (Negative); Protein Urine 2+ (Negative); Specific Gravity Urine 1.016 (1.000-1.030); Urobilinogen Urine Negative (Negative); WBC Urine Automated >30 /hpf (0-5)
[2018-08-23] MEDS ORDERED: OSELTAMIVIR PHOSPHATE 75 MG CAP PO STA (15:58)
[2018-08-23] MEDS ORDERED: POTASSIUM CHLORIDE 20 MEQ TABCR PO STA (17:09)
[2018-08-23] MEDS ORDERED: cefTRIAXone SODIUM 1,000 MG/50 ML BAG IV STA (17:48)
--- NOTE | 2018-08-23 18:54 | History & Physical Report ---
Date of Service August 23, 2018 Assessment & Plan (1) Influenza A: This is a 67-year-old male who has a significant past medical history of chronic atrial fibrillation anticoagulated on warfarin, HTN, HLD, RANDALL, metabolic syndrome, hypothyroidism, history of recurrent UTI, history of nephrolithiasis who presents to [facility] ED secondary to weakness, respiratory complaints, fall x 3 days. In ED patient tested positive for influenza, urinalysis consistent with UTI, culture pending. Lactic acid elevated to 2.26. His CBC was relatively unremarkable. BMP significant for Low K at 3.2, glucose 162, troponin WNL, Procal WNL. ECG noted ST changes per ER physician, initial troponin negative, no chest pain. He was hypertensive on arrival therefore he was given his home dose of losartan and hydralazine with mild improvement in BP. On admission patient did not met SIRS/sepsis criteria as only heart rate greater than 90 Temp was 37.9, WBC 8k Received IVF and broad spectrum antibiotic with rocephin while in ED Source: +Influenza A and probable UTI -admit to telemetry -Tamiflu 75mg po bid -continue IV rocephin 1g daily until Urine/blood culture returns -IVF 125cc/hr -repeat troponin/lactate at 20:00 -droplet precautions -supportive measures -xopenex q6h prn for SOB/Wheezing -incentive spirometry (2) UTI (urinary tract infection): -await urine culture -tx with 1g rocephin daily until returns -initial UA consistent with UTI -check CT scan abd/pelvis per attending (3) Acute electrocardiogram changes: -ecg changes noted from prior ecg -troponin negative, no chest pain -likely in setting of demand/severe HTN -trend troponin q6h x 3 -resting echocardiogram in a.m. (4) Hypokalemia: -repleted with 20meq kcl while in ED -continue KCL supplement daily 20meq tid -repeat bmp in a.m. (5) Atrial fibrillation: -rate/rhythm controlled on metoprolol and digoxin -warfarin for thrombotic control -INR 2.1 today, continue home regimen of 5mg every day except 2.5mg on saturday (6) HTN (hypertension): -patient actually hypertensive on admission; therefore given missed home meds in ED, losartan and hydralazine -continue metoprolol, hydralazine -hold amiloride and losartan given sepsis/volume status, resume when able (7) HLD (hyperlipidemia): -continue crestor (8) Metabolic syndrome: -on metformin per cardiology -recommend lifestyle modification -continue tx for HTN, HLD and RANDALL (9) RANDALL (obstructive sleep apnea): -bipap at HS (10) Hypothyroidism: -continue levothyroxine, TSH WNL (11) Morbid obesity: -BMI 37.0 -encourage lifestyle modifications (12) DVT prophylaxis: -warfarin, INR 2.1 Disposition: to be determined, likely d/c to home when able Follow up: PCP Dr. Siegel upon discharge Patient was seen in collaboration with Dr. Alexis, please see addendum History of Present Illness Chief Complaint: Weakness, Fall, Respiratory sx x 3 days. Primary Care Provider: Danilo Siegel This is a 67-year-old male who has a significant past medical history of chronic atrial fibrillation anticoagulated on warfarin, HTN, HLD, RANDALL, metabolic syndrome, hypothyroidism, history of recurrent UTI, history of nephrolithiasis who presents to [facility] ED secondary to weakness, respiratory complaints, fall x 3 days. Patient symptoms started on Saturday, came on abruptly, when he developed generalized weakness, productive cough with purulent sputum, chest congestion, feeling feverish, chills, sweats, sinus congestion, dyspnea on exertion. Symptoms continued to worsen over the past few days in which this morning he was on toilet, try to get up when he fell on his left shoulder and was unable to get up. Had to have assistance of neighbor to get him up. He did not hit his head or lose consciousness. He does complain of some left shoulder discomfort. Denies lightheadedness, dizziness, syncope, sore throat, chest pain, palpitations, nausea, vomiting, diarrhea, abdominal pain, dysuria, hematuria, melena, hematochezia, hemoptysis. He does elicit to being more constipated, last BM was 2 days ago. Appetite has been normal. is at bedside. 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 Allergies Allergy/AdvReac Type Severity Reaction Status Date / Time amlodipine Allergy Severe LE Verified 08/23/18 14:58 swelling and calves got "rock hard" Penicillins Allergy Mild RASH Verified 08/23/18 14:58 amoxicillin Allergy Unknown RASH Verified 08/23/18 14:58 chlorhexidine Allergy Unknown RASH, SKIN Verified 08/23/18 14:58 TURNED RED AND PEELED Home Medications Home Medications Medication Instructions Recorded Confirmed Type amiloride 10 mg PO DAILY 08/23/18 08/23/18 History aspirin [Aspir-81] 81 mg PO DAILY 08/23/18 08/23/18 History digoxin [Digox] 125 mcg PO DAILY 08/23/18 08/23/18 History finasteride 5 mg PO DAILY 08/23/18 08/23/18 History hydralazine 1.5 tab PO TID 08/23/18 08/23/18 History levothyroxine [Synthroid] 75 mcg PO DAILY 08/23/18 08/23/18 History losartan 100 mg PO DAILY 08/23/18 08/23/18 History metformin 500 mg PO DAILY 08/23/18 08/23/18 History metoprolol succinate [Toprol XL] 50 mg PO UD 08/23/18 08/23/18 History potassium chloride 20 meq PO TID 08/23/18 08/23/18 History rosuvastatin 5 mg PO Q2D 08/23/18 08/23/18 History terazosin 5 mg PO HS 08/23/18 08/23/18 History warfarin 2.5 mg PO WE 08/23/18 08/23/18 History warfarin 5 mg PO SUMOTUTHFRSA 08/23/18 08/23/18 History Past Med/Surg History Medical History History of recurrent UTI (urinary tract infection) HTN (hypertension) (Chronic) HLD (hyperlipidemia) (Chronic) Atrial fibrillation (Chronic) Metabolic syndrome (Chronic) RANDALL (obstructive sleep apnea) (Chronic) Hypothyroidism (Chronic) Chronic rhinitis (Chronic 06/12/11) Chronic rhinitis Pyelonephritis Sepsis UTI (urinary tract infection) Surgical History History of lithotripsy (Chronic) History of kidney surgery (Resolved) "transurethral removal obstruct/ureter renal pelvis 02/13/08" History of sinus surgery (Resolved) History of hernia repair (Resolved) "umbilical hernia repair performed by Dr. Abrams 11/2014" History of tonsillectomy and adenoidectomy (Resolved) H/O sinus surgery History of kidney surgery removal of transurethreal obstruction History of tonsillectomy and adenoidectomy Hx of umbilical hernia repair Family History Father Heart attack Lymphoma Mother T2DM (type 2 diabetes mellitus) Pancreatic cancer Social History marital status: Current Living Situation: Spouse Other Information That Helps Us Care for You: No Feels Safe at Home: Yes Safety Concerns: Feels Safe At This Time Smoking Status: Never smoker Do You Dip or Chew Tobacco: No Hx Alcohol Use: No Hx Substance Use: No Beliefs That Will Affect Care: Muslim Muslim Beliefs: Adventist Preferred Language: Mexican Communication Ability: Effective Weather Teacher Required: No Review of Systems All systems reviewed & are unremarkable except as noted in HPI & below Physical Exam 2 Vital Signs (Past 24 Hours): Last Vital Signs Temp 37.9 C H 08/23/18 13:56 Pulse 95 H 08/23/18 16:21 Resp 21 08/23/18 16:21 BP 162/84 H 08/23/18 16:21 Pulse Ox 91 08/23/18 15:52 Physical Exam: Gen: WD/WN, morbidly obese, M, lying in bed, pleasant, conversing easily, Head: Normocephalic, Atraumatic Eyes: Sclera normal, no conjunctival injection, PERRLA, EOMI ENT: Gross hearing intact, normal pharynx, mucous membranes dry Neck: supple, no adenopathy, No JVD, Resp: Clear to auscultation b/l, no wheeze, rales, rhonchi. 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 Extremities: No edema bilaterally with b/l venous stasis changes, b/l pedal pulse +2 Skin: warm, moist, no rash, negative turgor, cap refill < 2sec Neuro: Alert and oriented x 3, speech normal, good mood/affect, cran nerve 2-12 intact grossly : deferred Results & Data Laboratory Results Short CBC 08/23/18 Range/Units 14:30 WBC 8.00 (4.8-10.8) K/uL Hgb 15.9 (14.0-18.0) g/dL Hct 47.1 (42-52) % Plt Count 169 (130-400) K/uL BMP 08/23/18 14:30 Sodium 134 L Potassium 3.2 L Chloride 99 Carbon Dioxide 29 BUN 10 Creatinine 1.12 Glucose 162 H Calcium 8.5 Cardiac Enzymes 08/23/18 Range/Units 14:30 Troponin I < 0.015 (0-0.045) ng/ml Liver Function 08/23/18 Range/Units 14:30 Total Bilirubin 1.0 (0.2-1) mg/dl AST 21 (15-37) U/L ALT 31 (12-78) U/L Alkaline Phosphatase 136 H (45-117) U/L Albumin 3.4 (3.4-5.0) gm/dl Urine 08/23/18 Range/Units 15:10 Urine Color Dark Yellow Urine Appearance Clear (Clear) Urine pH 7.0 (4.5-7.5) Ur Specific [place] 1.016 (1.000-1.030) Urine Protein 2+ H (Negative) Urine Glucose (UA) Negative (Negative) Diagnostic Findings CXR: IMPRESSION: 1. Cardiomegaly with pulmonary vascular congestion. 2. Chronic interstitial coarsening. Code Status & VTE Plan Code Status Full Code VTE Prophylaxis Plan VTE Prophylaxis will be ordered: Yes Supervising Physician Co-Signing Physician Notes Attending addendum: Patient seen and examined care coordinated with Yolanda Chan PA-C This is a 67-year-old male with past medical history of coronary artery disease , hypertension, hyperlipidemia, came to ER with 2-3 days history of fever chills generalized body aches, nonproductive cough Found to be influenza A+ Severely dehydrated, with elevated lactic acid UA grossly positive, patient denies of any urinary symptoms Prior history of renal stone, no flank pain Admit to telemetry, continue IV fluids, repeat lactic acid level in 6 hours Started with Tamiflu Urine culture, empiric antibiotic with IV Rocephin CT abdomen pelvis without contrast for evaluation of renal stone Abnormal EKG: Twelve-lead EKG shows deep T wave inversion on lateral leads denies of any anginal symptoms Initial troponin negative Serial cardiac markers ordered, telemetry monitoring Resting echocardiogram CODE STATUS: Full code DVT prophylaxis: Patient is on Coumadin for chronic A. fib, INR therapeutic Disposition: Lives at home with , independent ADLs Expected to be discharged home when medically stable _ (1) UTI (urinary tract infection) Hematuria presence: with hematuria Urinary tract infection type: acute cystitis Qualified Code(s): N30.01 - Acute cystitis with hematuria (2) Atrial fibrillation Atrial fibrillation type: chronic Qualified Code(s): I48.2 - Chronic atrial fibrillation (3) HLD (hyperlipidemia) Hyperlipidemia type: unspecified Qualified Code(s): E78.5 - Hyperlipidemia, unspecified (4) Hypothyroidism Hypothyroidism type: unspecified Qualified Code(s): E03.9 - Hypothyroidism, unspecified (5) HTN (hypertension) Hypertension type: essential hypertension Qualified Code(s): I10 - Essential (primary) hypertension
[2018-08-23 19:04] LABS: INR 2.1 (0.9-1.1); Prothrombin Time 20.1 Seconds (9.0-12.0)
--- NOTE | 2018-08-23 20:00 | CT Scan Report ---
ABDOMEN AND PELVIS CT WITHOUT CONTRAST CT DOSE: 1941.13 mGy.cm HISTORY: Acute bilateral flank pain with urinary tract infection hx of renal stone /UTI TECHNIQUE: Multiaxial CT images of the abdomen and pelvis were performed without contrast. A dose lo wering technique was utilized adhering to the principles of ALARA. COMPARISON STUDY: CT abdomen and pelvis 06/10/2013. FINDINGS: Motion degraded exam. Subsegmental bibasilar groundglass densities are suggestive of atelectasis. Tr kalani right pleural effusion. No pneumatosis or pneumoperitoneum. Imaged inferior cardiac chambers are mildly enlarged. Contracted gallbladder. Hepatic steatosis. No focal hepatic mass lesions identified. No intrahepatic biliary ductal dilation. Spleen, pancreas and right adrenal gland are unremarkable. Mild thickening a bout the left adrenal gland. Multiple nonobstructing bilateral renal calculi with mild nonspecific bi lateral perinephric stranding. No ureteral calculi or obstructive uropathy. Ureters and urinary bladd er are unremarkable. Prostamegaly with prosthetic calcifications noted. Small fat filled bilateral in guinal hernias. Calcification of the aorta without aneurysm. No adenopathy. There is no small bowel obstruction identified. Mild to moderate volume of formed stool noted through out the large bowel. The appendix and terminal ileum appear unremarkable. No ascites or mesenteric in flammation. Peripherally enhancing centrally hypodense collection noted about the periumbilical abdom inal wall, 4.7 x 1.6 x 4.0 cm in AP, transverse and craniocaudal dimensions respectively. A periumbil ical hernia was noted on prior study. Bones appear intact. Multilevel spondylitic spurring with facet arthrosis. IMPRESSION: 1. Nonobstructing bilateral nephrolithiasis. No ureteral calculi or obstructive uropathy. 2. Prostamegaly. 3. Small fat filled bilateral inguinal hernias. 4. No bowel obstruction or focal bowel wall thickening. Normal appendix. 5. Hepatic steatosis. 6. Peripherally enhancing fluid collection about the periumbilical abdominal wall measures up to 4.7 cm. This is suggestive of a postoperative fluid collection, sterility not confirmed by imaging alone. Correlate clinically. 7. Trace right pleural effusion. Electronically signed by: Christian Cavazos M.D. 08/23/2018 7:58 PM
[2018-08-23] MEDS ORDERED: ALUMINUM/MAGNESIUM SUSP 30 ML UDC PO PRN (20:22)
[2018-08-23] MEDS ORDERED: MAGNESIUM HYDROXIDE SUSP 30 ML UDC PO PRN (20:22)
[2018-08-23] MEDS ORDERED: ONDANSETRON INJ 2 MG/ML 2 ML VIAL IV PRN (20:22)
[2018-08-23] MEDS ORDERED: NITROGLYCERIN SL 0.4 MG/TAB TAB SL PRN (20:22)
[2018-08-23] MEDS: LEVALBUTEROL HCL 0.63 MG/3 ML NEB NEB SCH (21:07)
[2018-08-23] MEDS ORDERED: SODIUM CHLORIDE 0.9% 500 ML IV SCH (21:30)
[2018-08-23] MEDS: METOPROLOL SUCC 25MG EXT REL TAB PO SCH (21:50)
[2018-08-23] MEDS: POTASSIUM CHLORIDE 20 MEQ TABCR PO SCH (21:50)
[2018-08-23] MEDS: ACETAMINOPHEN 325 MG TAB PO PRN (22:20)
[2018-08-23] MEDS: ASPIRIN 81 MG ECTAB PO SCH (22:21)
[2018-08-24] MEDS: LEVALBUTEROL HCL 0.63 MG/3 ML NEB NEB SCH ×4 (02:00→18:07)
[2018-08-24] MEDS: LEVOTHYROXINE SODIUM 75 MCG TABLET PO SCH (05:49)
[2018-08-24 05:58] LABS: Basophils # (auto) 0.02 K/uL (0-0.2); Basophils % (auto) 0.4 %; Eosinophils # (auto) 0.06 K/uL (0-0.5); Eosinophils % (auto) 1.2 %; Hematocrit (blood only) 45.7 % (42-52); Hemoglobin 15.4 g/dL (14.0-18.0); Immature Granulocytes # (auto) 0.03 K/uL (0.00-0.02); Immature Granulocytes % (auto) 0.6 %; Lymphocytes # (auto) 1.46 K/uL (1.2-3.4); Lymphocytes % (auto) 28.6 %; Mean Corpuscular Hgb Conc 33.7 g/dL (32-36); Mean Corpuscular Volume 95.4 fL (80-100); Mean Platelet Volume 9.7 fL (7.4-10.4); Monocytes # (auto) 0.59 K/uL (0.11-0.59); Monocytes % (auto) 11.5 %; Neutrophils # (auto) 2.95 K/uL (1.4-6.5); Neutrophils % (auto) 57.7 %; Platelet Count 147 K/uL (130-400); RDW Coefficient of Variation 13.7 % (11.5-14.5); RDW Standard Deviation 47.9 fL (36.4-46.3); Red Blood Count 4.79 M/uL (4.7-6.1); White Blood Count 5.11 K/uL (4.8-10.8)
[2018-08-24 06:04] LABS: INR 2.1 (0.9-1.1); Prothrombin Time 20.3 Seconds (9.0-12.0)
[2018-08-24 06:35] LABS: Albumin Level 2.8 gm/dl (3.4-5.0); BUN Creatinine Ratio 10.8 (10-20); Bilirubin Direct 0.3 mg/dl (0-0.2); Calcium 7.8 mg/dl (8.5-10.1); Creatinine Clr Calc Pharmacy 125.6 ml/min; Est GFR (African American) 111.4; Est GFR (Non-African American) 96.1; Potassium 3.1 mmol/L (3.5-5.1)
[2018-08-24 06:39] LABS: Albumin Globulin Ratio 0.7 (0.9-2); Bilirubin,Total 0.8 mg/dl (0.2-1); Total Protein 6.8 gm/dl (6.4-8.2)
[2018-08-24] MEDS: FINASTERIDE 5 MG TAB PO SCH (07:43)
[2018-08-24] MEDS: ASPIRIN 81 MG ECTAB PO SCH (07:43)
[2018-08-24] MEDS: OSELTAMIVIR PHOSPHATE 75 MG CAP PO SCH ×2 (07:43→19:19)
[2018-08-24] MEDS: METOPROLOL SUCC 50MG EXT REL TAB PO SCH (07:44)
[2018-08-24] MEDS: cefTRIAXone SODIUM 1,000 MG in SODIUM CHLOR 0.9% AD-VAN 50 ML IV SCH (08:15)
[2018-08-24] MEDS: POTASSIUM CHLORIDE 20 MEQ TABCR PO SCH ×3 (08:15→19:19)
[2018-08-24] MEDS ORDERED: LOSARTAN POTASSIUM 25 MG TAB PO SCH (09:00)
[2018-08-24] MEDS ORDERED: LOSARTAN POTASSIUM 50 MG TAB PO SCH (09:00)
[2018-08-24] MEDS ORDERED: ASPIRIN 81 MG ECTAB PO SCH (09:00)
[2018-08-24] MEDS ORDERED: ROSUVASTATIN CALCIUM 5 MG TAB PO SCH (09:00)
[2018-08-24] MEDS ORDERED: POTASSIUM CHLORIDE 10 MEQ TABCR PO ONE (10:00)
[2018-08-24] MEDS: LOSARTAN POTASSIUM 50 MG TAB PO SCH (10:51)
[2018-08-24] MEDS: ACETAMINOPHEN 325 MG TAB PO PRN (10:57)
--- NOTE | 2018-08-24 13:09 | Cardiology Consultation ---
Date of Consultation August 24, 2018 Assessment & Plan (1) Abnormal EKG: Patient is noted to have T wave inversions in the inferior and precordial leads, they were present on recent baseline EKG as an outpatient in July 2018 , and review of serial EKGs reveals that he has had these changes that have come and gone in the past. There is likely reflective of his underlying difficult to control hypertension and LVH, but as noted, T wave inversions in the anterior precordial leads are certainly more prominent today and need to be followed closely clinically. (2) Atrial fibrillation: Chronic atrial fibrillation, rate controlled with metoprolol, stroke prophylaxis with Coumadin. (3) HTN (hypertension): Slightly above baseline, blood pressure, continue home regimen including amiloride, hydralazine, metoprolol, terazosin (4) Influenza A: Mr. Edwards was seen and examined in room 2331. He is accompanied by his spouse who is a retired operating room nurse. Today is 08/24/18. The patient notes feeling ill since Saturday. He noted that he had subjective fevers and chills that were so significant that he had placed his sleeping bag on top of his bed covers at home. He became progressively more ill culminating in a collapse getting up from the toilet yesterday and was down in the ground for 30 minutes. He was responsive but unable to get himself up. His spouse summoned help. He has been found to have influenza A and his lactate level had been elevated on admission. There was concern yesterday regarding mild repolarization changes on his EKG. This prompted an echocardiogram today and a follow-up EKG. EKG performed today reveals more prominent deep T wave inversions in the anterior precordial leads. Fortunately however we do have a recent baseline EKG performed when he was feeling well at her routine outpatient follow-up last month. Inferior T wave inversions were noted at that time as well as T wave inversions in the precordial leads, similar to what was noted yesterday. The T wave inversions in the precordial leads however today are more prominent. The differential diagnosis for these includes ischemia, possible catecholamine induced cardiomyopathy. His echocardiogram was somewhat technically limited due to his body habitus, but I think there is a subtle apical anteroseptal wall motion abnormality not previously noted on a stress echocardiogram a year ago. The patient is currently comfortable in his room. His initial temperature yesterday 08/23/18 at 1356 was 37.9 C, and he has been afebrile in the interim. He has had no symptoms suggestive of angina over the last week, and his symptoms are characteristic of his viral illness. At this time, I think we should continue his prior to hospital cardiac medications including Coumadin for stroke prophylaxis and supportive care for influenza including therapy with Tamiflu. We will continue to trend cardiac enzymes, but thus far his enzymes have been reassuring. History of Present Illness Attending Physician: Leta Alexis MD History of Present Illness Becca Edwards is a 67 year old male seen in cardiology consultation per the request of Dr Alexis for the evaluation of abnormal EKG. Patient presented to the emergency department yesterday with complaint of generalized weakness. Patient started feeling ill 3 days prior to presentation with generalized weakness and productive cough, chest congestion, and subjective fevers and chills. Yesterday morning he was sitting on the toilet at home when he tried to get up he fell on his left side and was unable to get up. He was brought to the emergency department and tested positive for influenza A. The patient's primary director [employer] is Dr. Shultz of our practice. His most recent follow-up visit had been on 07/10/18. The patient has a history of obesity with obstructive sleep apnea, chronic atrial fibrillation, hypertension and hypertensive heart disease. An exercise stress echocardiogram had been performed a year ago on 08/26/17 that was negative for inducible ischemia. An accelerated heart rate response to exercise was noted in the exercise capacity was below average achieving 3 minutes on a standard Magdaleno protocol. Atrial fibrillation was present throughout the test. Resting echocardiogram was notable for moderate concentric left ventricular hypertrophy, moderate left atrial enlargement and normal resting wall motion. Allergies Allergy/AdvReac Type Severity Reaction Status Date / Time amlodipine Allergy Severe LE Verified 08/23/18 14:58 swelling and calves got "rock hard" Penicillins Allergy Mild RASH Verified 08/23/18 14:58 amoxicillin Allergy Unknown RASH Verified 08/23/18 14:58 chlorhexidine Allergy Unknown RASH, SKIN Verified 08/23/18 14:58 TURNED RED AND PEELED Home Medications Home Medications Medication Instructions Recorded Confirmed Type amiloride 10 mg PO DAILY 08/23/18 08/23/18 History aspirin [Aspir-81] 81 mg PO DAILY 08/23/18 08/23/18 History digoxin [Digox] 125 mcg PO DAILY 08/23/18 08/23/18 History finasteride 5 mg PO DAILY 08/23/18 08/23/18 History hydralazine 1.5 tab PO TID 08/23/18 08/23/18 History levothyroxine [Synthroid] 75 mcg PO DAILY 08/23/18 08/23/18 History losartan 100 mg PO DAILY 08/23/18 08/23/18 History metformin 500 mg PO DAILY 08/23/18 08/23/18 History metoprolol succinate [Toprol XL] 50 mg PO UD 08/23/18 08/23/18 History potassium chloride 20 meq PO TID 08/23/18 08/23/18 History rosuvastatin 5 mg PO Q2D 08/23/18 08/23/18 History terazosin 5 mg PO HS 08/23/18 08/23/18 History warfarin 2.5 mg PO WE 08/23/18 08/23/18 History warfarin 5 mg PO SUMOTUTHFRSA 08/23/18 08/23/18 History Patient History Medical History History of recurrent UTI (urinary tract infection) HTN (hypertension) (Chronic) HLD (hyperlipidemia) (Chronic) Atrial fibrillation (Chronic) Metabolic syndrome (Chronic) RANDALL (obstructive sleep apnea) (Chronic) Hypothyroidism (Chronic) Chronic rhinitis (Chronic 06/12/11) Chronic rhinitis Pyelonephritis Sepsis UTI (urinary tract infection) Surgical History History of lithotripsy (Chronic) History of kidney surgery (Resolved) "transurethral removal obstruct/ureter renal pelvis 02/13/08" History of sinus surgery (Resolved) History of hernia repair (Resolved) "umbilical hernia repair performed by Dr. Abrams 11/2014" History of tonsillectomy and adenoidectomy (Resolved) H/O sinus surgery History of kidney surgery removal of transurethreal obstruction History of tonsillectomy and adenoidectomy Hx of umbilical hernia repair Family History Father Heart attack Lymphoma Mother T2DM (type 2 diabetes mellitus) Pancreatic cancer Social History marital status: Current Living Situation: Spouse Other Information That Helps Us Care for You: No Feels Safe at Home: Yes Safety Concerns: Feels Safe At This Time Smoking Status: Never smoker Do You Dip or Chew Tobacco: No Hx Alcohol Use: No Hx Substance Use: No Beliefs That Will Affect Care: Zoroastrianism Zoroastrianism Beliefs: Scientology Preferred Language: Pakistani Communication Ability: Effective 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 Diagnostic Findings EKG performed as an outpatient 07/10/18 at which time patient was asymptomatic having been seen in routine cardiology follow-up with noted atrial fibrillation at 66 bpm, with T wave inversions noted in the inferior leads as well as the precordial leads V1 to V6.EKG tracing performed 05/30/17 was also relevant for inferior and precordial T wave inversions, although the current changes appear bit more prominent EKG performed on presentation 08/23/18 1408: Atrial fibrillation 95 bpm, mild nonspecific ST changes, relatively similar to the July 2018 EKG. EKG performed today 08/24/18 at 646: Atrial fibrillation at 60 bpm, marketed ST- T wave abnormality noted in the precordial leads with deep T wave inversions in V1 to V3 less prominent in the inferior leads. Echocardiogram performed today 08/24/18: Technically limited study: There is a subtle small sized apical, apical anteroseptal wall motion abnormality with hypokinesis of the segments noted, preserved LVEF 55-60%. _ (1) Atrial fibrillation Atrial fibrillation type: chronic Qualified Code(s): I48.2 - Chronic atrial fibrillation (2) HTN (hypertension) Hypertension type: essential hypertension Qualified Code(s): I10 - Essential (primary) hypertension
--- NOTE | 2018-08-24 14:37 | Hospitalist Progress Note ---
Date of Service August 24, 2018 Assessment & Plan (1) Influenza A: Initially much improved, after IV fluids, continued with Tamiflu Lactic acid level normalized after IV fluids, possible secondary to dehydration , no evidence of sepsis, white count normal level, Patient will complete Tamiflu for total of 5 days, cough has improved, continue droplet precaution (2) UTI (urinary tract infection): - urine culture Corynebacterium Continue IV Rocephin No urinary symptoms, will change to oral antibiotic prior to discharge CT abdomen pelvis: No evidence of renal stone (3) Acute electrocardiogram changes: Deep ST wave to inversion on anterolateral leads -troponin negative, no chest pain -likely in setting of demand/severe HTN -Resting echocardiogram shows apical wall motion abnormality change from prior, appreciate input from cardiology, no evidence of angina, no evidence of ACS Possible stress-induced cardiomyopathy Recommend supportive care for influenza, dehydration Outpatient patient follow-up echocardiogram Further cardiac intervention needed (4) Hypokalemia: Replaced, follow lites (5) Atrial fibrillation: -rate/rhythm controlled on metoprolol and digoxin Continued Coumadin, INR therapeutic (6) HTN (hypertension): -Blood pressure remains elevated, -continue metoprolol, We will resume all home antihypertensive, continue to monitor (7) HLD (hyperlipidemia): -continue crestor (8) Metabolic syndrome: -on metformin per cardiology -recommend lifestyle modification -continue tx for HTN, HLD and RANDALL (9) RANDALL (obstructive sleep apnea): -bipap at HS (10) Hypothyroidism: -continue levothyroxine, TSH WNL (11) Morbid obesity: -BMI 37.0 -encourage lifestyle modifications (12) DVT prophylaxis: -warfarin, INR 2.1 Disposition: Possible discharge home today if medically stable Follow up: PCP Dr. Siegel upon discharge Subjective Feels much better since yesterday, no fever or chills, weakness body ache has improved, no complaint of chest pain no complaint of Physical Exam 2 Vital Signs (Past 24 Hours): Last Vital Signs Temp 36.8 C 08/24/18 10:45 Pulse 75 08/24/18 13:46 Resp 16 08/24/18 13:46 BP 149/91 H 08/24/18 10:45 Pulse Ox 96 08/24/18 13:46 Physical Exam: GENERAL: No sign of distress, HEENT: Sclera nonicteric, pink-purple bilateral equal reactive to light extraocular muscle intact Normal oral mucosa, neck: No JVD, no thyromegaly, trachea midline Lungs: Clear to auscultate, no wheeze or rales Cardiovascular: Regular S1 and S2, no murmur or gallop, no JVD, no lower extremity edema Abdomen: Soft, nontender, bowel sounds active, no hepatosplenomegaly Extremities: No rash or deformity, normal joint, Neuro: No focal neurological deficit, no dysarthria, no facial droop Psych: Alert awake oriented x3: Euthymic Skin: No rash LYMPH NODES: No cervical lymphadenopathy _ (1) UTI (urinary tract infection) Encounter type: Hematuria presence: with hematuria Indwelling urinary catheter type: Urinary tract infection type: acute cystitis Qualified Code(s) : N30.01 - Acute cystitis with hematuria (2) Atrial fibrillation Atrial fibrillation type: chronic Qualified Code(s): I48.2 - Chronic atrial fibrillation (3) HLD (hyperlipidemia) Hyperlipidemia type: unspecified Qualified Code(s): E78.5 - Hyperlipidemia, unspecified (4) Hypothyroidism Hypothyroidism type: unspecified Qualified Code(s): E03.9 - Hypothyroidism, unspecified (5) HTN (hypertension) Hypertension type: essential hypertension Qualified Code(s): I10 - Essential (primary) hypertension
[2018-08-24] MEDS: WARFARIN SOD 5 MG TAB PO SCH (16:12)
[2018-08-24] MEDS: DIGOXIN 0.125 MG TAB PO SCH (16:12)
[2018-08-24] MEDS: METOPROLOL SUCC 25MG EXT REL TAB PO SCH (16:59)
[2018-08-24] MEDS: HydrALAZINE TAB 50 MG TAB PO SCH (20:03)
[2018-08-24] MEDS ORDERED: TERAZOSIN HCL 5 MG CAP PO SCH (21:00)
[2018-08-25] MEDS ORDERED: LABETALOL HCL IV 5 MG/ML 20ML IV PRN (00:32)
[2018-08-25 02:12] LABS: Basophils # (auto) 0.02 K/uL (0-0.2); Basophils % (auto) 0.4 %; Eosinophils # (auto) 0.18 K/uL (0-0.5); Eosinophils % (auto) 3.5 %; Hematocrit (blood only) 43.4 % (42-52); Hemoglobin 14.7 g/dL (14.0-18.0); Immature Granulocytes # (auto) 0.04 K/uL (0.00-0.02); Immature Granulocytes % (auto) 0.8 %; Lymphocytes # (auto) 1.46 K/uL (1.2-3.4); Lymphocytes % (auto) 28.3 %; Mean Corpuscular Hgb Conc 33.9 g/dL (32-36); Mean Corpuscular Volume 93.9 fL (80-100); Mean Platelet Volume 9.7 fL (7.4-10.4); Monocytes # (auto) 0.46 K/uL (0.11-0.59); Monocytes % (auto) 8.9 %; Neutrophils % (auto) 58.1 %; Platelet Count 141 K/uL (130-400); RDW Coefficient of Variation 13.6 % (11.5-14.5); RDW Standard Deviation 46.8 fL (36.4-46.3); Red Blood Count 4.62 M/uL (4.7-6.1); White Blood Count 5.16 K/uL (4.8-10.8)
[2018-08-25] MEDS: LEVALBUTEROL HCL 0.63 MG/3 ML NEB NEB SCH ×3 (02:14→14:10)
[2018-08-25 02:22] LABS: INR 1.8 (0.9-1.1); Prothrombin Time 17.6 Seconds (9.0-12.0)
[2018-08-25 02:32] LABS: Alanine Aminotransferase 29 U/L (12-78); Albumin Level 2.8 gm/dl (3.4-5.0); Aspartate Aminotransferase 21 U/L (15-37); BUN Creatinine Ratio 12.7 (10-20); Bilirubin Direct 0.3 mg/dl (0-0.2); Blood Urea Nitrogen 11 mg/dl (7-18); Calcium 7.7 mg/dl (8.5-10.1); Carbon Dioxide 28 mmol/L (21-32); Chloride 104 mmol/L (98-107); Creatinine Clr Calc Pharmacy 110.2 ml/min; Est GFR (African American) 105.7; Est GFR (Non-African American) 91.2; Glucose 108 mg/dl (70-99); Potassium 3.1 mmol/L (3.5-5.1); Sodium 140 mmol/L (136-145)
[2018-08-25 02:37] LABS: Albumin Globulin Ratio 0.7 (0.9-2); Alkaline Phosphatase 120 U/L (45-117); Bilirubin,Total 0.7 mg/dl (0.2-1); Globulin 3.8 gm/dl (2.5-4.0); Total Protein 6.6 gm/dl (6.4-8.2); Troponin I < 0.015 ng/ml (0-0.045)
[2018-08-25] MEDS: LEVOTHYROXINE SODIUM 75 MCG TABLET PO SCH (06:23)
[2018-08-25] MEDS: LOSARTAN POTASSIUM 50 MG TAB PO SCH (09:26)
[2018-08-25] MEDS: METOPROLOL SUCC 50MG EXT REL TAB PO SCH (09:26)
[2018-08-25] MEDS: FINASTERIDE 5 MG TAB PO SCH (09:26)
[2018-08-25] MEDS: HydrALAZINE TAB 50 MG TAB PO SCH ×2 (09:26→14:38)
[2018-08-25] MEDS: cefTRIAXone SODIUM 1,000 MG in SODIUM CHLOR 0.9% AD-VAN 50 ML IV SCH (09:28)
[2018-08-25] MEDS: POTASSIUM CHLORIDE 20 MEQ TABCR PO SCH ×2 (09:28→14:40)
[2018-08-25] MEDS: ASPIRIN 81 MG ECTAB PO SCH (09:28)
[2018-08-25] MEDS: OSELTAMIVIR PHOSPHATE 75 MG CAP PO SCH ×2 (09:40→18:34)
--- NOTE | 2018-08-25 12:40 | Cardiology Progress Note ---
Date of Service August 25, 2018 Assessment & Plan (1) Abnormal EKG: Deep anteroseptal T wave inversions noted, more prominent than recent outpatient EKG from last month. Patient has absolutely no symptoms suggestive of angina. He has a long- standing history of decreased exercise tolerance with only walking 3 minutes on a standard Magdaleno protocol at time of stress test performed a year ago in 2018. The patient's echocardiogram was reviewed again. It is a technically limited study, some diffuse and apical anteroseptal wall motion abnormality cannot be excluded, but overall, is very difficult to tease out small abnormalities to the patient's poor acoustic windows. Serial troponin levels have been negative, and as noted the patient has no chest discomfort, shortness of breath unchanged compared to his typical baseline , and his only subjective symptoms are those consistent with his acute influenza A infection. At present, I recommend discharged on his prior home medications including aspirin, Coumadin, and receive a statin therapy. We will plan to proceed with a combined low intensity exercise/pharmacologic nuclear stress test within about a week agrees would in order to allow him to recover from his influenza episode. Cardiology follow-up with our practice will be arranged to be performed after the stress test. (2) Atrial fibrillation: Chronic atrial fibrillation, rate controlled. Continue prior to hospital medications. INR is a bit below goal today at 1.8, continue home dose of Coumadin. (3) Influenza A: Complete course of Tamiflu. (4) HTN (hypertension): Patient's blood pressure has been above goal, but trend toward improvement. He has a long-standing history of difficult to control hypertension. His potassium has been low for the last 2 days it is noted that he is off of his amiloride if this was a nonformulary medication that had not been replaced by a formulary alternative. He has received supplementary potassium replacement. I discussed his potassium and blood pressure with Dr. Alexis, who is going to order a stat repeat potassium level. As long as it is stable, anticipate discharge on his prior to hospital medications for his hypertension including the amiloride. Subjective Chief complaint: Follow-up abnormal EKG Subjective: Patient states that he feels well. He has a cough but he feels this is improving. No subjective fevers or chills. Per vital signs he has been afebrile since his initial set of vital signs here in the hospital. His blood pressure had been above goal but this is trending toward improvement. Telemetry reveals rate controlled atrial fibrillation in the range of 80 bpm. Physical Exam 2 Vital Signs (Past 24 Hours): Last Vital Signs Temp 36.7 C 08/25/18 11:38 Pulse 69 08/25/18 11:38 Resp 19 08/25/18 11:38 BP 150/76 H 08/25/18 11:38 Pulse Ox 96 08/25/18 11:38 Constitutional: well developed; no acute distress Respiratory: + cough Auscultation: no crackles, no rales, no rhonchi and no wheezes Cardiovascular: Rate/Rhythm: regular rate; + abnormal rhythm (Irregular rhythm ) Heart Sounds: no murmur Extremities: no edema Gastrointestinal (Abdomen): Percussion/Palpation: abdomen soft; abdomen nontender and no guarding Skin: no rashes, warm and dry Neurologic: moves all extremities; no focal motor deficits and + not awake _ (1) Atrial fibrillation Atrial fibrillation type: chronic Qualified Code(s): I48.2 - Chronic atrial fibrillation (2) HTN (hypertension) Hypertension type: essential hypertension Qualified Code(s): I10 - Essential (primary) hypertension
[2018-08-25] MEDS ORDERED: POTASSIUM CHLORIDE 20 MEQ TABCR PO STA (14:15)
[2018-08-25] MEDS: WARFARIN SOD 5 MG TAB PO SCH (16:15)
--- NOTE | 2018-08-25 16:31 | Discharge Summary ---
Date of Service August 25, 2018 Admission HPI Per Admitting Provider This is a 67-year-old male who has a significant past medical history of chronic atrial fibrillation anticoagulated on warfarin, HTN, HLD, RANDALL, metabolic syndrome, hypothyroidism, history of recurrent UTI, history of nephrolithiasis who presents to [facility] ED secondary to weakness, respiratory complaints, fall x 3 days. Patient symptoms started on Saturday, came on abruptly, when he developed generalized weakness, productive cough with purulent sputum, chest congestion, feeling feverish, chills, sweats, sinus congestion, dyspnea on exertion. Symptoms continued to worsen over the past few days in which this morning he was on toilet, try to get up when he fell on his left shoulder and was unable to get up. Had to have assistance of neighbor to get him up. He did not hit his head or lose consciousness. He does complain of some left shoulder discomfort. Denies lightheadedness, dizziness, syncope, sore throat, chest pain, palpitations, nausea, vomiting, diarrhea, abdominal pain, dysuria, hematuria, melena, hematochezia, hemoptysis. He does elicit to being more constipated, last BM was 2 days ago. Appetite has been normal. is at bedside. 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 Principal Diagnosis Hypertension/influenza A Discharge Exam Constitutional well developed; no acute distress Respiratory Auscultation: no crackles, no rales, no rhonchi and no wheezes Cardiovascular Rate/Rhythm: regular rate; + abnormal rhythm (Irregular rhythm) Heart Sounds: no murmur Extremities: no edema Gastrointestinal (Abdomen) Percussion/Palpation: abdomen soft; abdomen nontender and no guarding Skin no rashes, warm and dry Neurologic moves all extremities; no focal motor deficits and + not awake Discharge Data Allergies Allergy/AdvReac Type Severity Reaction Status Date / Time amlodipine Allergy Severe LE Verified 08/23/18 14:58 swelling and calves got "rock hard" Penicillins Allergy Mild RASH Verified 08/23/18 14:58 amoxicillin Allergy Unknown RASH Verified 08/23/18 14:58 chlorhexidine Allergy Unknown RASH, SKIN Verified 08/23/18 14:58 TURNED RED AND PEELED Consultations 08/23/18 17:57 ED Decision to Admit Stat 08/24/18 09:14 Consult Cardiology Routine Ordered Studies 08/23/18 18:11 CT abd pelvis wo con Stat Hospital Course (1) Influenza A: Clinically improved, no fever or chills, no generalized weakness Lactic acid level normalized after IV fluids, possible secondary to dehydration, no evidence of sepsis, white count normal level, Patient will complete Tamiflu for total of 5 days, cough has improved, continue droplet precaution (2) UTI (urinary tract infection): - urine culture Corynebacterium Treated with IV Rocephin No urinary symptoms, discharged with p.o. ciprofloxacin CT abdomen pelvis: Bilateral nephrolithiasis, no obstructive ureteric stone (3) Acute electrocardiogram changes: Deep ST wave to inversion on anterolateral leads -troponin negative, no chest pain -likely in setting of demand/severe HTN -Resting echocardiogram shows apical wall motion abnormality change from prior, appreciate input from cardiology, no evidence of angina, no evidence of ACS Possible stress-induced cardiomyopathy Recommend supportive care for influenza, dehydration Outpatient patient follow-up echocardiogram/dobutamine stress test Appreciate input from cardiology Further cardiac intervention needed (4) Hypokalemia: Replaced, follow lites (5) Atrial fibrillation: -rate/rhythm controlled on metoprolol and digoxin Continued Coumadin, INR therapeutic (6) HTN (hypertension): -Blood pressure improved after continue all home medications (7) HLD (hyperlipidemia): -continue crestor (8) Metabolic syndrome: -on metformin per cardiology -recommend lifestyle modification -continue tx for HTN, HLD and RANDALL (9) RANDALL (obstructive sleep apnea): -bipap at HS (10) Hypothyroidism: -continue levothyroxine, TSH WNL (11) Morbid obesity: -BMI 37.0 -encourage lifestyle modifications (12) DVT prophylaxis: -warfarin, INR 2.1 Disposition: Stable to be discharged home today Follow up: PCP Dr. Siegel upon discharge Total Time Total Time Spent Total Time Spent (In Minutes): Approximate 35 minutes Total Time Includes: Discharge Planning, Medication Reconciliation and Communication With Other Providers Discharge Plan Discharge Items Patient Disposition: Home - Self-Care Reason For Visit: FEVER/FLU POSITIVE Discharge Diagnosis: INFLUENZA A /HYPERTENSION Discharge Goals: Decrease discomfort, Diagnostic testing, Improve disease control and Therapeutic intervention Activity: Resume your previous activity Non-emergency contact: Primary Care Provider Call non-emergency contact if: you have any medication questions Follow-up/Referrals: Danilo Siegel [Primary Care Provider] - 08/29/18 10:25 am Alfredo Shultz MD [Family Provider] - Ria Pimentel MD [Physician] - Diet: Heart Healthy Other Ambulatory Orders: Basic Metabolic Panel (Routine) Timeframe: [id number] Location: Determined by Patient Ordered By: Leta Hartman Provider Instructions: FOLLOW UP WITH CARDIOLOGY FOR OUT PATIENT STRESS TEST OFFICE WILL CALL YOU WITH APPOINTMENT Prescriptions: Continued terazosin 5 mg capsule 5 mg PO HS RF: 0 metformin 500 mg tablet 500 mg PO DAILY RF: 0 metoprolol succinate 50 mg tablet extended release 24 hr 50 mg PO UD RF: 0 aspirin [Aspir-81] 81 mg Tablet,Delayed Release (Dr/Ec) 81 mg PO DAILY RF: 0 levothyroxine 75 mcg tablet 75 mcg PO DAILY RF: 0 amiloride 5 mg tablet 10 mg PO DAILY RF: 0 potassium chloride 20 mEq tablet,ER particles/crystals 20 meq PO TID RF: 0 hydralazine 50 mg tablet 1.5 tab PO TID RF: 0 digoxin 125 mcg tablet 125 mcg PO DAILY RF: 0 losartan 100 mg tablet 100 mg PO DAILY RF: 0 finasteride 5 mg tablet 5 mg PO DAILY RF: 0 rosuvastatin 5 mg tablet 5 mg PO Q2D RF: 0 warfarin 5 mg Tablet 5 mg PO SUMOTUTHFRSA RF: 0 warfarin 5 mg Tablet 2.5 mg PO WE RF: 0 Stand-Alone Forms: [facility]/Other Patient Handouts: Flu Discharge Orders: Discharge Order (Routine); Ordered 08/25/18 Ordered By: Leta Alexis Admission Data Admit Date/Time: 08/23/18 18:28 Attending Provider: Leta Alexis Admit Provider: Leta Alexis Primary Care Provider: Danilo Siegel Other Providers: [place] Lua Service: Telemetry Other Interventions: Discharge Summary Assessment (RN) Last Done: 08/25/18 18:27 DC Date/Time DO NOT enter until pt leaves facility: 08/25/18 19:03
[2018-08-25] MEDS: DIGOXIN 0.125 MG TAB PO SCH (18:34)
[2018-08-26] MEDS ORDERED: AMILORIDE 5 MG PO SCH (09:00)
[2018-08-27] MEDS ORDERED: WARFARIN SOD 2.5 MG TAB PO SCH (16:00)
== END 2018-08-25 19:03 | disposition home or self-care (01) | DRG 315 ==
LOC: ED 13:51 → 2S 18:28

== ENCOUNTER 2021-09-18 10:08 | Observation (INO) ==
[2021-09-18 11:54] LABS: Basophils # (auto) 0.01 K/uL (0-0.2); Basophils % (auto) 0.1 %; Hematocrit (blood only) 46.3 % (42-52); Hemoglobin 15.9 g/dL (14.0-18.0); Immature Granulocytes # (auto) 0.04 K/uL (0.00-0.02); Immature Granulocytes % (auto) 0.4 %; Lymphocytes # (auto) 1.13 K/uL (1.2-3.4); Lymphocytes % (auto) 10.8 %; Mean Corpuscular Hemoglobin 32.1 pg (25-34); Mean Corpuscular Hgb Conc 34.3 g/dL (32-36); Mean Corpuscular Volume 93.5 fL (80-100); Monocytes # (auto) 0.27 K/uL (0.11-0.59); Monocytes % (auto) 2.6 %; Neutrophils # (auto) 9.05 K/uL (1.4-6.5); Neutrophils % (auto) 86.1 %; Platelet Count 173 K/uL (130-400); RDW Coefficient of Variation 14.1 % (11.5-14.5); RDW Standard Deviation 47.9 fL (36.4-46.3); Red Blood Count 4.95 M/uL (4.7-6.1)
[2021-09-18] MEDS ORDERED: SODIUM CHLORIDE 0.9% 1000ML 1,000 ML IV SCH (12:00)
[2021-09-18 12:04] LABS: INR 2.1 (0.9-1.1); Prothrombin Time 21.9 Seconds (9.0-12.0)
[2021-09-18 12:06] LABS: Alanine Aminotransferase 19 U/L (7-52); Albumin Globulin Ratio 1.1 (0.9-2); Albumin Level 3.9 gm/dl (3.4-5.0); Alkaline Phosphatase 130 U/L (34-104); Anion Gap 7 (3-11); Aspartate Aminotransferase 15 U/L (13-39); BUN Creatinine Ratio 14.1 (10-20); Bilirubin,Total 0.9 mg/dl (0.2-1.0); Blood Urea Nitrogen 12 mg/dl (6-23); Calcium 8.6 mg/dl (8.5-10.1); Carbon Dioxide 27 mmol/L (21-32); Chloride 103 mmol/L (98-107); Creatinine Clr Calc Pharmacy 105.6 ml/min; Est GFR (Non-African American) 88.9 ml/min; Globulin 3.4 gm/dl (2.5-4.0); Glucose 153 mg/dl (70-99(Fasting)); Lipase 19 U/L (11-82); Magnesium 1.9 mg/dl (1.7-2.4); Potassium 3.6 mmol/L (3.5-5.1); Sodium 137 mmol/L (136-145); Total Protein 7.3 gm/dl (6.0-8.3)
[2021-09-18 12:08] LABS: Troponin I < 0.03 ng/ml (0-0.04)
--- NOTE | 2021-09-18 12:40 | XRay Report ---
XR abdomen 2V w PA chest CLINICAL HISTORY: n/v, abd pain. Evaluate cardiopulmonary status COMPARISON STUDY: 08/23/2018 TECHNIQUE: Single frontal view of the chest and supine and decubitus films of the abdomen FINDINGS: Single frontal view of the chest demonstrates the heart size to be mildly enlarged. Compared to the p revious examination, diffuse interstitial and alveolar edema is seen most characteristic of early con gestive heart failure. No confluent alveolar opacities are seen. There is no evidence for pleural eff usion. There is no acute osseous pathology. Abdomen: There is no free air or significant air-fluid levels present. The bowel gas pattern is withi n normal limits without evidence for dilatation or obstruction. There is no evidence for organomegaly or gross intra-abdominal mass. No abnormal calcifications are seen along the course of the urinary t racts bilaterally. No acute osseous pathology. IMPRESSION: 1. No acute intra-abdominal abnormality. 2. Evidence for diffuse interstitial and alveolar edema most characteristic of early congestive heart failure. ACT 112: Negative or not required by law. Electronically signed by: Timmy Bauer M.D. 09/18/2021 12:38 PM
[2021-09-18] MEDS ORDERED: METOPROLOL TARTRATE 1 MG/ML VIAL IV STA (13:23)
--- NOTE | 2021-09-18 13:30 | Emergency Department Note ---
History of Present Illness General Chief complaint: Nausea Time Seen by Provider: 09/18/21 11:20 Source: patient and family Mode of arrival: wheelchair Limitations: no limitations History of Present Illness Provider complaint: Nausea, vomiting, abdominal pain Onset (ago): hour(s) 9 Location: abdomen Radiation: non-radiation Exacerbated By: + movement Associated symptoms: + loss of appetite, + malaise, + nausea/vomiting and + shortness of breath; no chest pain or no fever/chills Treatments prior to arrival: none This is a 70-year-old male presents emergency department with family bedside due to concern for nausea, vomiting, and abdominal pain. Patient states symptoms began at 230 this morning abruptly. Patient states he had at least 15 episodes of emesis, no blood noted. Patient states he did go out to eat yesterday afternoon for lunch around 2 PM, however he felt well throughout the evening and at bedtime. Patient states after multiple episodes of emesis into this morning, he felt very weak and lightheaded, and stated he looked unstable with attempting to sit up or walk. He denies fevers or chills. He denies any recent change in medications. Patient is on chronic anticoagulation due to history of atrial fibrillation. states last INR was 1.7 so he took an additional half dose recently and was due to have his INR rechecked tomorrow. Patient states he did have an episode of diarrhea this morning in addition. Patient did have repair of an umbilical hernia, no other abdominal surgeries. Patient concern for food poisoning. Nursing staff notes patient was hypoxic when they entered the room at 88% on room air, he was placed on 2 L via nasal cannula. Pt seen during a time of high acuity and national emergency pandemic while wea ring PPE. Home Medications Medication Instructions Recorded Confirmed Type amiloride 5 mg tablet 10 mg PO HS 08/23/18 09/18/21 History digoxin 125 mcg (0.125 mg) tablet 125 mcg PO QDL 08/23/18 09/18/21 History finasteride 5 mg tablet 5 mg PO HS 08/23/18 09/18/21 History hydralazine 50 mg tablet 1.5 tab PO TID 08/23/18 09/18/21 History levothyroxine 75 mcg tablet 75 mcg PO Q OTHER DAY 08/23/18 09/18/21 History losartan 100 mg tablet 100 mg PO QDL 08/23/18 09/18/21 History metformin 500 mg tablet 500 mg PO QAM 08/23/18 09/18/21 History metoprolol succinate 50 mg 50 mg PO DAILY 08/23/18 09/18/21 History tablet,extended release 24 hr potassium chloride 20 mEq 20 meq PO TID 08/23/18 09/18/21 History tablet,extended release(part/cryst) cyanocobalamin (vitamin B-12) 1,000 mcg PO QAM 09/18/19 09/18/21 History 1,000 mcg tablet magnesium hydroxide 400 mg/5 mL 15 ml PO DAILY PRN 12/18/19 09/18/21 History oral suspension (Milk of Magnesia) polyethylene glycol 3350 17 17 g PO DAILY PRN 12/18/19 09/18/21 History gram/dose oral powder (Miralax) terazosin 5 mg capsule 5 mg PO HS #90 cap 07/20/21 09/18/21 Rx evolocumab 140 mg/mL subcutaneous 140 mg SUBCUT Q14D 09/18/21 09/18/21 History pen injector (Repathkayla Gaitanick) furosemide 20 mg tablet 20 mg PO DAILY PRN 09/18/21 09/18/21 History levothyroxine 100 mcg tablet 100 mcg PO Q OTHER DAY 09/18/21 09/18/21 History metoprolol succinate 50 mg 25 mg PO HS 09/18/21 09/18/21 History tablet,extended release 24 hr mirabegron 25 mg tablet,extended 50 mg PO QAM 09/18/21 09/18/21 History release 24 hr (Myrbetriq) Allergies Allergy/AdvReac Type Severity Reaction Status Date / Time amlodipine Allergy Severe LE Verified 09/18/21 14:30 swelling and calves got "rock hard" Vqtpezg-[id number]-TqG Reductase Allergy Intermediate leg pains Verified 09/18/21 14:30 Inhibitor [Gfplmlt-Vcr-Vrv Reductase Inhibitor] amoxicillin Allergy Mild RASH Verified 09/18/21 14:30 chlorhexidine Allergy Mild RASH, SKIN Verified 09/18/21 14:30 TURNED RED AND PEELED Penicillins Allergy Mild RASH Verified 09/18/21 14:30 Past Med/Surg History Medical History (Updated 09/19/21 @ 17:59 by Luz Elena Reyes DO) Atrial fibrillation Chronic; on Warfarin. BPH (benign prostatic hyperplasia) Chronic rhinitis Cirrhosis of liver NON ETOH History of colon polyps History of kidney stones History of recurrent UTI (urinary tract infection) History of urethral stricture HLD (hyperlipidemia) HTN (hypertension) Hypospadias Hypothyroidism Metabolic syndrome metformin Nephrolithiasis Neuropathy BLE RANDALL (obstructive sleep apnea) USES BIPAP Osteoarthritis Prediabetes UTI (urinary tract infection) Surgical History H/O sinus surgery History of cardiac cath 2000 NO STENTS History of cystoscopy History of esophagogastroduodenoscopy (EGD) History of hernia repair "umbilical hernia repair performed by Dr. Abrams 11/2014" History of kidney surgery 2007 URETHRAL PLASTY (GRAFT FROM [place]) TEMPORARY SUPERPUBIC CATHETER (REMOVED) History of kidney surgery removal of transurethreal obstruction History of lithotripsy History of sinus surgery History of tonsillectomy and adenoidectomy History of tooth extraction Family History Father Lymphoma Myocardial infarction Mother Pancreatic cancer T2DM (type 2 diabetes mellitus) Other No family history of adverse response to anesthesia Social History Smoking Status: Never smoker Second Hand Exposure: No; Hx Alcohol Use: Yes Alcohol type: wine Hx Substance Use: No Preferred Language: Citizen Of [place] Communication Ability: Effective Insurance Claims Analyst Required: No Beliefs That Will Affect Care: Jehovah'S Witness Jehovah'S Witness Beliefs: "Mandaen" marital status: Current Living Situation: Spouse Other Information That Helps Us Care for You: No Feels Safe at Home: Yes Safety Concerns: Feels Safe At This Time Assistive Devices: Oxygen - Continuous Review of Systems A total of 10 systems reviewed and were otherwise negative All systems reviewed & are unremarkable except as noted in HPI & below Physical Exam Vital Signs Vital Signs - 24 hr 09/18/21 18:02 09/18/21 18:21 09/18/21 18:44 Temperature 36.8 C Temperature Source Oral Pulse Rate 72 Pulse Rate [Finger] 79 82 Pulse Rhythm [Finger] Pulse Strength [Finger] Respiratory Rate 22 20 18 Respiratory Effort / Characteristics Respiratory Depth Respiratory Pattern Blood Pressure 181/97 H Blood Pressure [Left Arm] Blood Pressure [Right Arm] 198/109 H 194/102 H Blood Pressure Mean [Left Arm] Blood Pressure Mean [Right Arm] 138 132 Blood Pressure Position [Left Arm] Pulse Oximetry 96 94 94 Oxygen Delivery Method Nasal Cannula Nasal Cannula Nasal Cannula Oxygen Flow Rate 2 2 09/18/21 18:46 09/18/21 19:27 09/18/21 20:09 Temperature 36.9 C Temperature Source Oral Pulse Rate 82 Pulse Rate [Finger] 85 Pulse Rhythm [Finger] Pulse Strength [Finger] Respiratory Rate 18 Respiratory Effort / Characteristics Non-Labored Respiratory Depth Normal Respiratory Pattern Regular Blood Pressure Blood Pressure [Left Arm] 199/102 H Blood Pressure [Right Arm] Blood Pressure Mean [Left Arm] 134 Blood Pressure Mean [Right Arm] Blood Pressure Position [Left Arm] Lying Pulse Oximetry 95 Oxygen Delivery Method Nasal Cannula Nasal Cannula Oxygen Flow Rate 2 1 09/18/21 20:46 09/18/21 21:27 09/18/21 21:47 Temperature 37.0 C Temperature Source Oral Pulse Rate Pulse Rate [Finger] 82 Pulse Rhythm [Finger] Pulse Strength [Finger] Respiratory Rate 20 Respiratory Effort / Characteristics Spontaneous Non-Labored Spontaneous Respiratory Depth Normal Normal Respiratory Pattern Regular Blood Pressure Blood Pressure [Left Arm] 197/113 H 200/104 H Blood Pressure [Right Arm] Blood Pressure Mean [Left Arm] 141 136 Blood Pressure Mean [Right Arm] Blood Pressure Position [Left Arm] Sitting Sitting Pulse Oximetry 93 Oxygen Delivery Method Nasal Cannula Nasal Cannula Oxygen Flow Rate 1 1 09/18/21 22:12 09/18/21 23:28 09/19/21 01:45 Temperature 36.8 C Temperature Source Oral Pulse Rate 87 Pulse Rate [Finger] 83 80 Pulse Rhythm [Finger] Pulse Strength [Finger] Respiratory Rate 18 Respiratory Effort / Characteristics Respiratory Depth Respiratory Pattern Blood Pressure Blood Pressure [Left Arm] 186/85 H 174/80 H Blood Pressure [Right Arm] Blood Pressure Mean [Left Arm] 118 111 Blood Pressure Mean [Right Arm] Blood Pressure Position [Left Arm] Lying Lying Pulse Oximetry 94 Oxygen Delivery Method Nasal Cannula Oxygen Flow Rate 1 09/19/21 04:24 09/19/21 08:10 09/19/21 09:27 Temperature 36.4 C L 36.6 C Temperature Source Oral Oral Pulse Rate Pulse Rate [Finger] 90 81 Pulse Rhythm [Finger] Pulse Strength [Finger] Respiratory Rate 18 18 Respiratory Effort / Characteristics Non-Labored Respiratory Depth Normal Respiratory Pattern Blood Pressure Blood Pressure [Left Arm] 134/88 157/84 H Blood Pressure [Right Arm] Blood Pressure Mean [Left Arm] 103 108 Blood Pressure Mean [Right Arm] Blood Pressure Position [Left Arm] Lying Lying Pulse Oximetry 93 96 Oxygen Delivery Method CPAP Nasal Cannula Nasal Cannula Oxygen Flow Rate 1 1 09/19/21 11:37 09/19/21 15:37 09/19/21 16:22 Temperature 36.6 C 36.4 C L 36.4 C L Temperature Source Oral Oral Oral Pulse Rate Pulse Rate [Finger] 67 75 72 Pulse Rhythm [Finger] Regular Regular Pulse Strength [Finger] Normal Normal Respiratory Rate 16 18 22 Respiratory Effort / Characteristics Non-Labored Spontaneous Non-Labored Respiratory Depth Normal Normal Respiratory Pattern Regular Blood Pressure Blood Pressure [Left Arm] 142/77 H 178/103 H 191/109 H Blood Pressure [Right Arm] Blood Pressure Mean [Left Arm] 98 128 136 Blood Pressure Mean [Right Arm] Blood Pressure Position [Left Arm] Lying Sitting Pulse Oximetry 96 95 92 Oxygen Delivery Method Room Air Room Air Oxygen Flow Rate 09/19/21 16:32 09/19/21 16:48 Temperature 36.6 C 36.6 C Temperature Source Oral Oral Pulse Rate Pulse Rate [Finger] 82 94 H Pulse Rhythm [Finger] Regular Regular Pulse Strength [Finger] Normal Normal Respiratory Rate 22 20 Respiratory Effort / Characteristics Non-Labored Non-Labored Respiratory Depth Normal Normal Respiratory Pattern Regular Regular Blood Pressure Blood Pressure [Left Arm] 198/124 H 185/98 H Blood Pressure [Right Arm] Blood Pressure Mean [Left Arm] 148 127 Blood Pressure Mean [Right Arm] Blood Pressure Position [Left Arm] Sitting Sitting Pulse Oximetry 90 91 Oxygen Delivery Method Room Air Room Air Oxygen Flow Rate GENERAL: alert, ill appearing, well nourished, no distress, non-toxic EYE EXAM: normal conjunctiva, PERRL and EOM's grossly intact OROPHARYNX: no exudate, no erythema, lips, buccal mucosa, and tongue normal and mucous membranes are dry NECK: supple, no nuchal rigidity, no adenopathy, non-tender LUNGS: Clear to auscultation. Normal chest wall mechanics, no w/r/r HEART: no murmurs, S1 normal and S2 normal ABDOMEN: abdomen soft, mild central abdominal discomfort with palpation, well- healed surgical scar noted at the umbilicus consistent with umbilical hernia repair, normo-active bowel sounds, no masses, no rebound or guarding. BACK: Back is symmetrical on inspection and there is no deformity, no midline tenderness, no CVA tenderness. SKIN: no rashes and no bruising UPPER EXTREMITIES: upper extremities are grossly normal. FROM, nml pulses b/l. LOWER EXTREMITIES: 2+ b/l pitting edema - states this is new. FROM, nml pulses b/l. NEURO EXAM: Normal sensorium, cranial nerves II-XII grossly intact, normal spee ch, no facial droop, no ataxia, no gross weakness of arms, no gross weakness of legs. Gross sensation intact. Course Course 1530: Pt and updated on results. Pt still becomes hypoxic when oxygen turned off. Patient states nausea abdominal pain are improved however not resolved. Patient still too weak to ambulate to the bathroom. concerned about being a fall risk if they try to go home at this point. Administered Medications Digoxin (Digoxin 0.125 Mg Tab) 0.125 mg PO QDL [facility] Stop: 10/19/21 11:29 Last Admin: 09/19/21 11:23 Dose: 0.125 mg Documented by: [id number] Finasteride (Finasteride 5 Mg Tab) 5 mg PO HS [facility] Stop: 10/18/21 20:59 Last Admin: 09/18/21 20:53 Dose: 5 mg Documented by: [id number] Hydralazine HCl (Hydralazine Hcl 25 Mg Tab) 75 mg PO TID [facility] Stop: 10/18/21 20:59 Last Admin: 09/19/21 13:09 Dose: 75 mg Documented by: [id number] Admin: 09/19/21 09:19 Dose: 75 mg Documented by: [id number] Admin: 09/18/21 20:33 Dose: 75 mg Documented by: [id number] Hydralazine HCl (Hydralazine Hcl 20 Mg/Ml Vial) 10 mg IV Q6H PRN PRN Reason: To keep goal SBP of 140-150 Stop: 10/19/21 16:36 Last Admin: 09/19/21 17:16 Dose: 10 mg Documented by: [id number] Insulin Aspart (Insulin Aspart Per Unit) 0 units SC ACHS [facility] Stop: 10/18/21 20:59 Last Admin: 09/19/21 16:52 Dose: Not Given Documented by: [id number] Admin: 09/19/21 11:58 Dose: Not Given Documented by: [id number] Admin: 09/19/21 08:48 Dose: Not Given Documented by: [id number] Admin: 09/18/21 21:02 Dose: Not Given Documented by: [id number] Levothyroxine Sodium (Levothyroxine Sodium 100 Mcg Tablet) 100 mcg PO Q2D@0630 [facility] Stop: 10/19/21 06:29 Last Admin: 09/18/21 20:53 Dose: 100 mcg Documented by: [id number] Levothyroxine Sodium (Levothyroxine Sodium 75 Mcg Tablet) 75 mcg PO Q2D@0630 [facility] Stop: 10/18/21 18:41 Last Admin: 09/18/21 21:02 Dose: 75 mcg Documented by: [id number] Losartan Potassium (Losartan Potassium 50 Mg Tab) 100 mg PO QDL [facility] Stop: 10/19/21 11:29 Last Admin: 09/19/21 11:23 Dose: 100 mg Documented by: [id number] Metoprolol Succinate (Metoprolol Succ 25mg Ext Rel Tab) 25 mg PO [facility] Stop: 10/18/21 20:59 Last Admin: 09/18/21 20:53 Dose: 25 mg Documented by: [id number] Metoprolol Succinate (Metoprolol Succ 50mg Ext Rel Tab) 50 mg PO DAILY [facility] Stop: 10/19/21 08:59 Last Admin: 09/19/21 09:19 Dose: 50 mg Documented by: [id number] Mirabegron (Mirabegron Er 25 Mg Tab) 50 mg PO QAM [facility] Stop: 10/19/21 08:59 Last Admin: 09/19/21 09:19 Dose: 50 mg Documented by: [id number] Potassium Chloride (Potassium Chloride Crtab 20 Meq Tabcr) 20 meq PO TID [facility] Stop: 10/18/21 20:59 Last Admin: 09/19/21 13:09 Dose: 20 meq Documented by: [id number] Admin: 09/19/21 09:20 Dose: 20 meq Documented by: [id number] Admin: 09/18/21 20:53 Dose: 20 meq Documented by: [id number] Terazosin HCl (Terazosin Hcl 5 Mg Cap) 5 mg PO [facility] Stop: 10/18/21 20:59 Last Admin: 09/18/21 20:52 Dose: 5 mg Documented by: [id number] Discontinued Medications Aspirin (Aspirin 81 Mg Ectab) 81 mg PO Q2D@0900 [facility] Stop: 10/19/21 08:59 Last Admin: 09/19/21 09:18 Dose: 81 mg Documented by: [id number] Hydralazine HCl (Hydralazine Hcl 20 Mg/Ml Vial) 10 mg IV NOW STA Stop: 09/18/21 13:57 Last Admin: 09/18/21 14:03 Dose: 10 mg Documented by: [id number] Hydralazine HCl (Hydralazine Hcl 20 Mg/Ml Vial) 10 mg IV NOW STA Stop: 09/18/21 21:16 Last Admin: 09/18/21 21:28 Dose: 10 mg Documented by: [id number] Sodium Chloride (Nss 1000ml) 1,000 mls @ 125 mls/hr IV .Q8H [facility] Stop: 10/18/21 11:59 Last Infusion: 09/18/21 20:00 Dose: 0 mls/hr Documented by: [id number] Admin: 09/18/21 11:58 Dose: 125 mls/hr Documented by: [id number] Phytonadione 10 mg/ Dextrose 51 mls @ 102 mls/hr IV ONE ONE Stop: 09/19/21 16:09 Last Infusion: 09/19/21 16:40 Dose: 0 mls/hr Documented by: [id number] Admin: 09/19/21 16:10 Dose: 102 mls/hr Documented by: [id number] Prothrombin Complex Concent ( (Human) 2,500 units/ Syringe) 100 mls @ 10 mls/min IV NOW ONE; Protocol Stop: 09/19/21 16:09 Last Admin: 09/19/21 16:09 Dose: 10 mls/min Documented by: [id number] Ioversol (Optiray 320 100ml) 94 ml IV ONCE ONE Stop: 09/18/21 14:16 Last Admin: 09/18/21 14:15 Dose: 94 ml Documented by: [id number] Labetalol HCl (Labetalol Hcl Iv 5 Mg/Ml 20ml) 10 mg IV NOW STA Stop: 09/18/21 17:17 Last Admin: 09/18/21 17:58 Dose: 10 mg Documented by: [id number] Cosigned by: [id number] Labetalol HCl (Labetalol Hcl Iv 5 Mg/Ml 20ml) 10 mg IV NOW STA Stop: 09/19/21 16:35 Last Admin: 09/19/21 16:51 Dose: 10 mg Documented by: [id number] Cosigned by: [id number] Losartan Potassium (Losartan Potassium 50 Mg Tab) 100 mg PO ONE ONE Stop: 09/18/21 19:14 Last Admin: 09/18/21 20:33 Dose: 100 mg Documented by: [id number] Metoprolol Tartrate (Metoprolol Tartrate 1 Mg/Ml Vial) 5 mg IV NOW STA; Protocol Stop: 09/18/21 13:24 Last Admin: 09/18/21 13:36 Dose: 5 mg Documented by: [id number] Warfarin Sodium (Warfarin Sod 5 Mg Tab) 5 mg PO Foreign@1600 [facility] Stop: 10/18/21 18:41 Last Admin: 09/18/21 20:52 Dose: 5 mg Documented by: [id number] Medical Decision Making Differential Diagnosis Differential: Gastroenteritis, Food Borne, Esophageal Perforation, , Electrolyte Abnormality, Dehydration, Intraabdominal Infection, UTI/Pyelonephritis, Bowel Obstruction, Biliary Pathology, amongst other pathology entertained. Medical Records Attestation: I reviewed the patient's medical records. Home Medications Current Medication List: was personally reviewed by me Laboratory Data Attestation: I reviewed the patient's lab results. Result diagrams: 09/19/21 02:07 09/19/21 02:07 Lab Results 09/18/21 09/18/21 09/18/21 Range/Units 11:10 11:10 11:10 WBC 10.50 (4.8-10.8) K/uL RBC 4.95 (4.7-6.1) M/uL Hgb 15.9 (14.0-18.0) g/dL Hct 46.3 (42-52) % MCV 93.5 (80-100) fL MCH 32.1 (25-34) pg MCHC 34.3 (32-36) g/dL RDW Std Deviation 47.9 H (36.4-46.3) fL RDW Coeff of Radha 14.1 (11.5-14.5) % Plt Count 173 (130-400) K/uL MPV 10.0 (7.4-10.4) fL Immature Gran % (Auto) 0.4 % Neut % (Auto) 86.1 % Lymph % (Auto) 10.8 % [place] % (Auto) 2.6 % Eos % (Auto) 0.0 % Baso % (Auto) 0.1 % Neut # (Auto) 9.05 H (1.4-6.5) K/uL Lymph # (Auto) 1.13 L (1.2-3.4) K/uL [place] # (Auto) 0.27 (0.11-0.59) K/uL Eos # (Auto) 0.00 (0-0.5) K/uL Baso # (Auto) 0.01 (0-0.2) K/uL Immature Gran # (Auto) 0.04 H (0.00-0.02) K/uL PT 21.9 H (9.0-12.0) Seconds INR 2.1 H (0.9-1.1) Sodium 137 (136-145) mmol/L Potassium 3.6 (3.5-5.1) mmol/L Chloride 103 (98-107) mmol/L Carbon Dioxide 27 (21-32) mmol/L Anion Gap 7 (3-11) BUN 12 (6-23) mg/dl Creatinine 0.85 (0.6-1.4) mg/dl Est Cr Clr Drug Dosing 105.6 ml/min Est GFR ( Amer) 103.0 ml/min Est GFR (Non-Af Amer) 88.9 ml/min BUN/Creatinine Ratio 14.1 (10-20) Glucose 153 H (70-99(Fasting)) mg/dl POC Glucose (70-99) mg/dl Estimat Average Glucose mg/dl Hemoglobin A1c (4.5-5.6) % Calcium 8.6 (8.5-10.1) mg/dl Magnesium 1.9 (1.7-2.4) mg/dl Total Bilirubin 0.9 (0.2-1.0) mg/dl AST 15 (13-39) U/L ALT 19 (7-52) U/L Alkaline Phosphatase 130 H (34-104) U/L Troponin I < 0.03 (0-0.04) ng/ml B-Natriuretic Peptide (0-100) pg/ml Total Protein 7.3 (6.0-8.3) gm/dl Albumin 3.9 (3.4-5.0) gm/dl Globulin 3.4 (2.5-4.0) gm/dl Albumin/Globulin Ratio 1.1 (0.9-2) Lipase 19 (11-82) U/L SARS-CoV-2, RNA, NAAT (NEGATIVE) 09/18/21 09/18/21 09/18/21 Range/Units 13:43 16:20 19:34 WBC (4.8-10.8) K/uL RBC (4.7-6.1) M/uL Hgb (14.0-18.0) g/dL Hct (42-52) % MCV (80-100) fL MCH (25-34) pg MCHC (32-36) g/dL RDW Std Deviation (36.4-46.3) fL RDW Coeff of Radha (11.5-14.5) % Plt Count (130-400) K/uL MPV (7.4-10.4) fL Immature Gran % (Auto) % Neut % (Auto) % Lymph % (Auto) % [place] % (Auto) % Eos % (Auto) % Baso % (Auto) % Neut # (Auto) (1.4-6.5) K/uL Lymph # (Auto) (1.2-3.4) K/uL [place] # (Auto) (0.11-0.59) K/uL Eos # (Auto) (0-0.5) K/uL Baso # (Auto) (0-0.2) K/uL Immature Gran # (Auto) (0.00-0.02) K/uL PT (9.0-12.0) Seconds INR (0.9-1.1) Sodium (136-145) mmol/L Potassium (3.5-5.1) mmol/L Chloride (98-107) mmol/L Carbon Dioxide (21-32) mmol/L Anion Gap (3-11) BUN (6-23) mg/dl Creatinine (0.6-1.4) mg/dl Est Cr Clr Drug Dosing ml/min Est GFR ( Amer) ml/min Est GFR (Non-Af Amer) ml/min BUN/Creatinine Ratio (10-20) Glucose (70-99(Fasting)) mg/dl POC Glucose (70-99) mg/dl Estimat Average Glucose mg/dl Hemoglobin A1c (4.5-5.6) % Calcium (8.5-10.1) mg/dl Magnesium (1.7-2.4) mg/dl Total Bilirubin (0.2-1.0) mg/dl AST (13-39) U/L ALT (7-52) U/L Alkaline Phosphatase (34-104) U/L Troponin I < 0.03 (0-0.04) ng/ml B-Natriuretic Peptide 425 H (0-100) pg/ml Total Protein (6.0-8.3) gm/dl Albumin (3.4-5.0) gm/dl Globulin (2.5-4.0) gm/dl Albumin/Globulin Ratio (0.9-2) Lipase (11-82) U/L SARS-CoV-2, RNA, NAAT NEGATIVE (NEGATIVE) 09/18/21 09/19/21 09/19/21 Range/Units 20:17 02:07 02:07 WBC 11.75 H (4.8-10.8) K/uL RBC 5.04 (4.7-6.1) M/uL Hgb 16.1 (14.0-18.0) g/dL Hct 47.5 (42-52) % MCV 94.2 (80-100) fL MCH 31.9 (25-34) pg MCHC 33.9 (32-36) g/dL RDW Std Deviation 49.0 H (36.4-46.3) fL RDW Coeff of Radha 14.2 (11.5-14.5) % Plt Count 172 (130-400) K/uL MPV 10.1 (7.4-10.4) fL Immature Gran % (Auto) % Neut % (Auto) % Lymph % (Auto) % [place] % (Auto) % Eos % (Auto) % Baso % (Auto) % Neut # (Auto) (1.4-6.5) K/uL Lymph # (Auto) (1.2-3.4) K/uL [place] # (Auto) (0.11-0.59) K/uL Eos # (Auto) (0-0.5) K/uL Baso # (Auto) (0-0.2) K/uL Immature Gran # (Auto) (0.00-0.02) K/uL PT (9.0-12.0) Seconds INR (0.9-1.1) Sodium 136 (136-145) mmol/L Potassium 3.7 (3.5-5.1) mmol/L Chloride 101 (98-107) mmol/L Carbon Dioxide 27 (21-32) mmol/L Anion Gap 8 (3-11) BUN 13 (6-23) mg/dl Creatinine 0.90 (0.6-1.4) mg/dl Est Cr Clr Drug Dosing 98.0 ml/min Est GFR ( Amer) 100.6 ml/min Est GFR (Non-Af Amer) 86.8 ml/min BUN/Creatinine Ratio 14.4 (10-20) Glucose 134 H (70-99(Fasting)) mg/dl POC Glucose 132 H (70-99) mg/dl Estimat Average Glucose mg/dl Hemoglobin A1c (4.5-5.6) % Calcium 8.5 (8.5-10.1) mg/dl Magnesium (1.7-2.4) mg/dl Total Bilirubin (0.2-1.0) mg/dl AST (13-39) U/L ALT (7-52) U/L Alkaline Phosphatase (34-104) U/L Troponin I 0.03 (0-0.04) ng/ml B-Natriuretic Peptide (0-100) pg/ml Total Protein (6.0-8.3) gm/dl Albumin (3.4-5.0) gm/dl Globulin (2.5-4.0) gm/dl Albumin/Globulin Ratio (0.9-2) Lipase (11-82) U/L SARS-CoV-2, RNA, NAAT (NEGATIVE) 09/19/21 09/19/21 09/19/21 Range/Units 02:07 02:07 07:26 WBC (4.8-10.8) K/uL RBC (4.7-6.1) M/uL Hgb (14.0-18.0) g/dL Hct (42-52) % MCV (80-100) fL MCH (25-34) pg MCHC (32-36) g/dL RDW Std Deviation (36.4-46.3) fL RDW Coeff of Radha (11.5-14.5) % Plt Count (130-400) K/uL MPV (7.4-10.4) fL Immature Gran % (Auto) % Neut % (Auto) % Lymph % (Auto) % [place] % (Auto) % Eos % (Auto) % Baso % (Auto) % Neut # (Auto) (1.4-6.5) K/uL Lymph # (Auto) (1.2-3.4) K/uL [place] # (Auto) (0.11-0.59) K/uL Eos # (Auto) (0-0.5) K/uL Baso # (Auto) (0-0.2) K/uL Immature Gran # (Auto) (0.00-0.02) K/uL PT 22.7 H (9.0-12.0) Seconds INR 2.2 H (0.9-1.1) Sodium (136-145) mmol/L Potassium (3.5-5.1) mmol/L Chloride (98-107) mmol/L Carbon Dioxide (21-32) mmol/L Anion Gap (3-11) BUN (6-23) mg/dl Creatinine (0.6-1.4) mg/dl Est Cr Clr Drug Dosing ml/min Est GFR ( Amer) ml/min Est GFR (Non-Af Amer) ml/min BUN/Creatinine Ratio (10-20) Glucose (70-99(Fasting)) mg/dl POC Glucose 125 H (70-99) mg/dl Estimat Average Glucose 123 mg/dl Hemoglobin A1c 5.9 H (4.5-5.6) % Calcium (8.5-10.1) mg/dl Magnesium (1.7-2.4) mg/dl Total Bilirubin (0.2-1.0) mg/dl AST (13-39) U/L ALT (7-52) U/L Alkaline Phosphatase (34-104) U/L Troponin I (0-0.04) ng/ml B-Natriuretic Peptide (0-100) pg/ml Total Protein (6.0-8.3) gm/dl Albumin (3.4-5.0) gm/dl Globulin (2.5-4.0) gm/dl Albumin/Globulin Ratio (0.9-2) Lipase (11-82) U/L SARS-CoV-2, RNA, NAAT (NEGATIVE) 09/19/21 09/19/21 Range/Units 11:08 16:04 WBC (4.8-10.8) K/uL RBC (4.7-6.1) M/uL Hgb (14.0-18.0) g/dL Hct (42-52) % MCV (80-100) fL MCH (25-34) pg MCHC (32-36) g/dL RDW Std Deviation (36.4-46.3) fL RDW Coeff of Radha (11.5-14.5) % Plt Count (130-400) K/uL MPV (7.4-10.4) fL Immature Gran % (Auto) % Neut % (Auto) % Lymph % (Auto) % [place] % (Auto) % Eos % (Auto) % Baso % (Auto) % Neut # (Auto) (1.4-6.5) K/uL Lymph # (Auto) (1.2-3.4) K/uL [place] # (Auto) (0.11-0.59) K/uL Eos # (Auto) (0-0.5) K/uL Baso # (Auto) (0-0.2) K/uL Immature Gran # (Auto) (0.00-0.02) K/uL PT (9.0-12.0) Seconds INR (0.9-1.1) Sodium (136-145) mmol/L Potassium (3.5-5.1) mmol/L Chloride (98-107) mmol/L Carbon Dioxide (21-32) mmol/L Anion Gap (3-11) BUN (6-23) mg/dl Creatinine (0.6-1.4) mg/dl Est Cr Clr Drug Dosing ml/min Est GFR ( Amer) ml/min Est GFR (Non-Af Amer) ml/min BUN/Creatinine Ratio (10-20) Glucose (70-99(Fasting)) mg/dl POC Glucose 128 H 113 H (70-99) mg/dl Estimat Average Glucose mg/dl Hemoglobin A1c (4.5-5.6) % Calcium (8.5-10.1) mg/dl Magnesium (1.7-2.4) mg/dl Total Bilirubin (0.2-1.0) mg/dl AST (13-39) U/L ALT (7-52) U/L Alkaline Phosphatase (34-104) U/L Troponin I (0-0.04) ng/ml B-Natriuretic Peptide (0-100) pg/ml Total Protein (6.0-8.3) gm/dl Albumin (3.4-5.0) gm/dl Globulin (2.5-4.0) gm/dl Albumin/Globulin Ratio (0.9-2) Lipase (11-82) U/L SARS-CoV-2, RNA, NAAT (NEGATIVE) Imaging Data Radiologist's Impression: Head CT 09/19/21 14:16 CT SCAN OF THE BRAIN WITHOUT IV CONTRAST CLINICAL HISTORY: Strokelike symptoms. COMPARISON STUDY: No priors. TECHNIQUE: Unenhanced axial CT scan of the brain is performed from the vertex to the skull base. A dose lowering technique was utilized adhering to the principles of ALARA. CT DOSE: 729.78 mGycm FINDINGS: Brain parenchyma: There is a 2.1 x 1.5 cm hemorrhage centered in the right cer ebellar hemisphere on axial image #9. There is mild surrounding edema with minimal mass effect on the fourth ventricle. No additional foci of hemorrhage are identified. There is no midline shift or evidence of acute territorial ischemia by CT criteria. There are age-related involutional changes noting mild to moderate subcortical and periventricular microangiopathic change. No extra- axial fluid collection is seen. Ventricles, sulci, cisterns: Prominent secondary to involutional change. No intraventricular blood is identified. Intracranial vasculature: There is atherosclerotic calcification of the cavernous carotid and vertebral arteries. Calvarium: Unremarkable. Sinuses and mastoids: The visualized paranasal sinuses are clear. The mastoid air cells are well pneumatized. Orbits: The bony orbits are grossly intact. There are bilateral ocular lens implants. IMPRESSION: 1. There is a 2.1 x 1.5 cm hemorrhage centered in the right cerebellar hemisphere with mild surrounding edema. 2. No additional foci of hemorrhage are identified. 3. There is no midline shift or evidence of acute territorial ischemia by CT criteria. ACT 112: Negative or not required by law. Electronically signed by: Dain Lopez M.D. 09/19/2021 3:19 PM XR abdomen 2V w PA chest CLINICAL HISTORY: n/v, abd pain. Evaluate cardiopulmonary status COMPARISON STUDY: 08/23/2018 TECHNIQUE: Single frontal view of the chest and supine and decubitus films of the abdomen FINDINGS: Single frontal view of the chest demonstrates the heart size to be mildly enlarged. Compared to the previous examination, diffuse interstitial and alveolar edema is seen most characteristic of early congestive heart failure. No confluent alveolar opacities are seen. There is no evidence for pleural effusion. There is no acute osseous pathology. Abdomen: There is no free air or significant air-fluid levels present. The bowel gas pattern is within normal limits without evidence for dilatation or obstruction. There is no evidence for organomegaly or gross intra-abdominal mass. No abnormal calcifications are seen along the course of the urinary tracts bilaterally. No acute osseous pathology. IMPRESSION: 1. No acute intra-abdominal abnormality. 2. Evidence for diffuse interstitial and alveolar edema most characteristic of early congestive heart failure. ACT 112: Negative or not required by law. Electronically signed by: Timmy Bauer M.D. 09/18/2021 12:[address] abd pelvis IV con only CLINICAL HISTORY: n/v abd pain COMPARISON STUDY: 08/23/2018 CT DOSE: 1347.08 mGy.cm TECHNIQUE: Standard CT of the Abdomen and Pelvis was performed with IV contrast. A dose lowering technique was utilized adhering to the principles of ALARA. Contrast Volume: Optiray 320, 94 ml. The patient did not receive oral contr ast. FINDINGS: Lung base: Interstitial fibrotic changes are seen at both lung bases Abdominal cavity: There is no evidence for abdominal mass, adenopathy or ascites. Compared to the previous study, there is a stable peripherally enhancing fluid collection involving the periumbilical abdominal wall. Liver: There is diffuse decreased attenuation of the liver parenchyma representing fatty infiltration. Liver is enlarged. There is no evidence for enhancing mass lesion. Spleen: There is homogeneous attenuation of the splenic parenchyma. There is no enhancing mass lesion. Pancreas: There is homogeneous attenuation of the pancreatic parenchyma. There is no evidence for mass lesion or peripancreatic fluid collection. Gall Bladder: The gallbladder is well distended with no evidence for intr aluminal calculi, wall thickening or pericholecystic edema. Adrenal glands: The adrenal glands are normal in size and attenuation. There is no evidence for enhancing mass lesion. Kidneys: There is homogeneous attenuation of the renal parenchyma bilaterally. Compared to previous examination, numerous bilateral nonobstructing renal calculi are again seen, right greater than left. There is no evidence for hydronephrosis. There is no evidence for enhancing mass. Subcentimeter cysts are again seen bilaterally. Bowel: There is a small hiatal hernia. The bowel loops are normally placed within the abdomen and pelvis without evidence for dilatation or obstruction. There is no evidence for mass lesion. There are no inflammatory changes present. There is no evidence for free air. There is again a normal appendix in the right lower quadrant. There are again small bilateral inguinal hernias containing peritoneal fat. No bowel loop herniation is seen. Bladder: The bladder is distended with no evidence for focal mass, calculus or diverticulum. : There is no evidence for pelvic mass or adenopathy. There is no evidence for pelvic ascites. The prostate is again grossly enlarged. Vasculature: There is no evidence for aneurysmal dilatation of the abdominal aorta. Atherosclerotic calcification is present. Osseous structures: There is no acute osseous pathology. IMPRESSION: 1. No acute intra-abdominal or pelvic abnormality. No significant interval change. 2. Hepatomegaly with fatty infiltration of the liver is again seen. 3. Small hiatal hernia. 4. Bilateral nonobstructing renal calculi are again seen, right greater than left. No hydronephrosis. 5. Additional nonacute findings are delineated above. ACT 112: Negative or not required by law. Electronically signed by: Timmy Bauer M.D. 09/18/2021 3:09 PM ECG Data Attestation: I personally reviewed and interpreted this ECG as follows: Indication: + vomiting Rate (beats per minute): 78 Rhythm: + atrial fibrillation ECG Intervals/blocks: + Normal QRS and + Normal QT ECG Clarkrange: + Normal ECG ST segments: + T-wave inversions Comparison ECG Date: from (08/25/2018) Change: no significant change MDM Narrative This is a 70-year-old male presents emergency department with weakness, dizziness, and concern for dehydration. Patient states he became ill with multiple episodes of vomiting, and with further episodes began feeling more weak and dehydrated. Patient was afebrile hemodynamically stable the nursing staff had noted mild hypoxia initially and he was placed on oxygen via nasal cannula. Labs drawn and sent, and imaging performed. Due to both vomiting and diarrhea, CT was performed in addition to the x-rays did not reveal any acute GI pathology. Patient was noted to have mild pulmonary edema on chest x-ray and given accompanying hypoxia a BNP was added to the blood work which was also elevated. It is unclear if perhaps the stress of this acute illness push the patient towards pulmonary edema/congestive heart failure. Patient remained otherwise hemodynamically stable in the emergency room, was given cautious and careful IV fluid rehydration. Case discussed with hospitalist for additional evaluation and management given persistent weakness, concern for GI symptoms, hypoxia, and elevated BNP. No evidence for acute intra-abdominal infection, patient did not have any recurrent vomiting or diarrhea here and did report some improvement in his nausea with treatment. Pt seen during a time of high acuity and national emergency pandemic while wearing PPE. Impression & Plan Generalized weakness, Nausea and vomiting, Hypoxia, Dehydration, Elevated brain natriuretic peptide (BNP) level Discharge Plan Visit Data Chief Complaint: Nausea ED Provider: Luz Elena Reyes Discharge Problem: Generalized weakness, Nausea and vomiting, Hypoxia, Dehydration, Elevated brain natriuretic peptide (BNP) level Patient Disposition: Admitted As Inpatient Discharge Instructions Interventions: ED Discharge Assessment Last Done: 09/18/21 18:21 Discharge Problem: Nausea and vomiting Qualifiers: Vomiting type: unspecified Qualified Code(s): R11.2 - Nausea with vomiting, unspecified
[2021-09-18] MEDS ORDERED: hydrALAZINE HCL 20 MG/ML VIAL IV STA ×2 (13:56→21:15)
[2021-09-18] MEDS ORDERED: OPTIRAY 320 100ml IV ONE (14:15)
--- NOTE | 2021-09-18 15:11 | CT Scan Report ---
CT abd pelvis IV con only CLINICAL HISTORY: n/v abd pain COMPARISON STUDY: 08/23/2018 CT DOSE: 1347.08 mGy.cm TECHNIQUE: Standard CT of the Abdomen and Pelvis was performed with IV contrast. A dose lowering heidy hnique was utilized adhering to the principles of ALARA. Contrast Volume: Optiray 320, 94 ml. The patient did not receive oral contrast. FINDINGS: Lung base: Interstitial fibrotic changes are seen at both lung bases Abdominal cavity: There is no evidence for abdominal mass, adenopathy or ascites. Compared to the previous study, there is a stable peripherally enhancing fluid collection involving t he periumbilical abdominal wall. Liver: There is diffuse decreased attenuation of the liver parenchyma representing fatty infiltration . Liver is enlarged. There is no evidence for enhancing mass lesion. Spleen: There is homogeneous attenuation of the splenic parenchyma. There is no enhancing mass lesion . Pancreas: There is homogeneous attenuation of the pancreatic parenchyma. There is no evidence for mas s lesion or peripancreatic fluid collection. Gall Bladder: The gallbladder is well distended with no evidence for intraluminal calculi, wall thick ening or pericholecystic edema. Adrenal glands: The adrenal glands are normal in size and attenuation. There is no evidence for enhan cing mass lesion. Kidneys: There is homogeneous attenuation of the renal parenchyma bilaterally. Compared to previous e xamination, numerous bilateral nonobstructing renal calculi are again seen, right greater than left. There is no evidence for hydronephrosis. There is no evidence for enhancing mass. Subcentimeter cysts are again seen bilaterally. Bowel: There is a small hiatal hernia. The bowel loops are normally placed within the abdomen and pel vis without evidence for dilatation or obstruction. There is no evidence for mass lesion. There are n o inflammatory changes present. There is no evidence for free air. There is again a normal appendix i n the right lower quadrant. There are again small bilateral inguinal hernias containing peritoneal fa t. No bowel loop herniation is seen. Bladder: The bladder is distended with no evidence for focal mass, calculus or diverticulum. : There is no evidence for pelvic mass or adenopathy. There is no evidence for pelvic ascites. The prostate is again grossly enlarged. Vasculature: There is no evidence for aneurysmal dilatation of the abdominal aorta. Atherosclerotic c alcification is present. Osseous structures: There is no acute osseous pathology. IMPRESSION: 1. No acute intra-abdominal or pelvic abnormality. No significant interval change. 2. Hepatomegaly with fatty infiltration of the liver is again seen. 3. Small hiatal hernia. 4. Bilateral nonobstructing renal calculi are again seen, right greater than left. No hydronephrosis. 5. Additional nonacute findings are delineated above. ACT 112: Negative or not required by law. Electronically signed by: Timmy Bauer M.D. 09/18/2021 3:09 PM
--- NOTE | 2021-09-18 16:53 | Electrocardiogram Report ---
Test Reason : Blood Pressure : / mmHG Vent. Rate : 078 BPM Atrial Rate : 326 BPM P-R Int : 000 ms QRS Dur : 094 ms QT Int : 432 ms P-R-T Axes : 000 016 165 degrees QTc Int : 492 ms Atrial fibrillation possible Posterior infarct , age undetermined Abnormal ECG When compared with ECG of 25-AUG-2018 06:16, No significant change was found Confirmed by Benedict Hutchinson ([id number]) on 09/18/2021 4:53:07 PM Referred By: Confirmed By:Anton Hutchinson
[2021-09-18] MEDS ORDERED: LABETALOL HCL IV 5 MG/ML 20ML IV STA (17:16)
[2021-09-18] MEDS ORDERED: GLUCAGON FOR INJ 1 MG VIAL SQ PRN (18:42)
[2021-09-18] MEDS ORDERED: GLUCOSE 10 TABS/TUBE PO PRN (18:42)
[2021-09-18] MEDS ORDERED: DEXTROSE 50% 50 ML SYRINGE IV PRN (18:42)
[2021-09-18] MEDS ORDERED: LEVOTHYROXINE SODIUM 75 MCG TABLET PO SCH (18:42)
[2021-09-18] MEDS ORDERED: CARBOHYDRATES FOR HYPOGLYCEMIA PO PRN (18:42)
[2021-09-18] MEDS ORDERED: GLUCOSE 40% GEL 15 GM TUBE PO PRN (18:42)
[2021-09-18] MEDS ORDERED: ACETAMINOPHEN 325 MG TAB PO PRN (18:42)
[2021-09-18] MEDS ORDERED: WARFARIN SOD 5 MG TAB PO SCH (18:42)
[2021-09-18] MEDS ORDERED: LOSARTAN POTASSIUM 50 MG TAB PO ONE (19:13)
[2021-09-18] MEDS ORDERED: PROMETHAZINE HCL 12.5 MG in SODIUM CHLORIDE 0.9% 50 ML IV PRN (19:36)
--- NOTE | 2021-09-18 19:39 | History & Physical Report ---
Date of Service September 18, 2021 Assessment & Plan (1) Nausea and vomiting: Plan: Admit to tele Patient presenting from home with nausea and multiple episodes of vomiting CT ABD/pelvis unremarkable for acute findings ?? Viral gastroenteritis Stool PCR panel Continue supportive care with clear liquid diet, as needed antiemetics (Phenergan ordered due to prolonged QT) (2) Hypoxia: Plan: Patient noted to be intermittently, mildly hypoxic requiring 1 to 2 L at times Does have history of underlying RANDALL, this may be contributing CXR showing possible early CHF, proBNP 425 Would avoid Lasix this evening due to clinical dehydration from multiple episodes of vomiting Update echo Follow-up CXR in the a.m. (3) Hypertensive urgency: Plan: Presenting BP 229/109 Patient is on multiple antihypertensives and missed all doses today due to vomiting Received IV hydralazine 10 mg and IV metoprolol 5 mg in ED Give labetalol 10 mg IV x 1 now Resume home medications (4) Prediabetes: Plan: Hgb A1c 6.0 08/2020 Glucose 153 on labs On Metformin for metabolic syndrome per chart review Update A1c, NovoLog per protocol while hospitalized (5) Prolonged QT interval: Plan: QTC 492 Daily EKG, avoid QTC prolonging agents (6) Atrial fibrillation: Plan: Rate controlled on metoprolol Anticoagulated on Coumadin, INR 2.1 (7) RANDALL (obstructive sleep apnea): Plan: BiPAP as per home settings (8) Hypothyroidism: Plan: Continue levothyroxine (9) DVT prophylaxis: Plan: On Coumadin, INR 2.1 Admission and Anticipated Discharge Date Admission Date: September 18, 2021 History of Present Illness Chief Complaint: Nausea, vomiting, generalized weakness Primary Care Provider: Danilo Siegel MD 70-year-old male with PMH metabolic syndrome, hypothyroidism, prediabetes, RANDALL on BiPAP, chronic atrial fibrillation anticoagulated on Coumadin, HTN, hypospadias, history of ureteral stricture s/p repair, and other problems to below who presents the ED for evaluation of nausea, vomiting, generalized weakness. Patient states that he went to bed last evening feeling in his usual state of health. States that he woke up around 2 AM and had sudden onset of nausea and vomiting. Patient reports several episodes of vomiting overnight (about 15) and a few episodes of diarrhea. He had associated generalized abdominal pain. This caused him to be very weak and he was unable to get off of the toilet for about 2 hours. EMS was called and patient was brought to the ED for further evaluation. Patient denies hematemesis, coffee-ground emesis, bright red bleeding per rectum, dark tarry stools. No fevers or chills. Had some associated lightheadedness and dizziness however no syncopal event. Denies chest pain or shortness of breath. Has chronic urinary incontinence and frequency and baseline, unchanged. In the ED, patient was found to be significantly hypertensive 229/109. He was mildly intermittently hypoxic requiring 1 to 2 L nasal cannula. Labs are unremarkable. CT ABD/pelvis unremarkable for acute findings. CXR suggestive of possible early CHF. Patient was given IV hydralazine 10 mg, IV metoprolol 5 mg, IVF. Allergies Allergy/AdvReac Type Severity Reaction Status Date / Time amlodipine Allergy Severe LE Verified 09/18/21 14:30 swelling and calves got "rock hard" [id number] Reductase Allergy Intermediate leg pains Verified 09/18/21 14:30 Inhibitor [Xulhrpm-Kgn-Qrn Reductase Inhibitor] amoxicillin Allergy Mild RASH Verified 09/18/21 14:30 chlorhexidine Allergy Mild RASH, SKIN Verified 09/18/21 14:30 TURNED RED AND PEELED Penicillins Allergy Mild RASH Verified 09/18/21 14:30 Norvasc TABS Allergy Unknown Unknown Uncoded 09/18/21 14:30 Home Medications Medication Instructions Recorded Confirmed Type amiloride 5 mg tablet 10 mg PO HS 08/23/18 09/18/21 History digoxin 125 mcg (0.125 mg) tablet 125 mcg PO QDL 08/23/18 09/18/21 History finasteride 5 mg tablet 5 mg PO HS 08/23/18 09/18/21 History hydralazine 50 mg tablet 1.5 tab PO TID 08/23/18 09/18/21 History levothyroxine 75 mcg tablet 75 mcg PO Q OTHER DAY 08/23/18 09/18/21 History losartan 100 mg tablet 100 mg PO QDL 08/23/18 09/18/21 History metformin 500 mg tablet 500 mg PO QAM 08/23/18 09/18/21 History metoprolol succinate 50 mg 50 mg PO DAILY 08/23/18 09/18/21 History tablet,extended release 24 hr potassium chloride 20 mEq 20 meq PO TID 08/23/18 09/18/21 History tablet,extended release(part/cryst) warfarin 5 mg tablet 2.5 mg PO WE 08/23/18 09/18/21 History warfarin 5 mg tablet 5 mg PO SUMOTUTHFRSA 08/23/18 09/18/21 History cyanocobalamin (vitamin B-12) 1,000 mcg PO QAM 09/18/19 09/18/21 History 1,000 mcg tablet magnesium hydroxide 400 mg/5 mL 15 ml PO DAILY PRN 12/18/19 09/18/21 History oral suspension (Milk of Magnesia) polyethylene glycol 3350 17 17 g PO DAILY PRN 12/18/19 09/18/21 History gram/dose oral powder (Miralax) terazosin 5 mg capsule 5 mg PO HS #90 cap 07/20/21 09/18/21 Rx aspirin 81 mg tablet,delayed 81 mg PO Q OTHER DAY 09/18/21 09/18/21 History release evolocumab 140 mg/mL subcutaneous 140 mg SUBCUT Q14D 09/18/21 09/18/21 History pen injector (Brent Gaitanick) furosemide 20 mg tablet 20 mg PO DAILY PRN 09/18/21 09/18/21 History levothyroxine 100 mcg tablet 100 mcg PO Q OTHER DAY 09/18/21 09/18/21 History metoprolol succinate 50 mg 25 mg PO HS 09/18/21 09/18/21 History tablet,extended release 24 hr mirabegron 25 mg tablet,extended 50 mg PO QAM 09/18/21 09/18/21 History release 24 hr (Myrbetriq) Past Med/Surg History Medical History (Updated 09/18/21 @ 19:37 by KYLE Garcia) Atrial fibrillation Chronic; on Warfarin. BPH (benign prostatic hyperplasia) Chronic rhinitis Cirrhosis of liver NON ETOH History of colon polyps History of kidney stones History of recurrent UTI (urinary tract infection) History of urethral stricture HLD (hyperlipidemia) HTN (hypertension) Hypospadias Hypothyroidism Metabolic syndrome metformin Nephrolithiasis Neuropathy BLE RANDALL (obstructive sleep apnea) USES BIPAP Osteoarthritis Prediabetes UTI (urinary tract infection) Surgical History H/O sinus surgery History of cardiac cath 2000 NO STENTS History of cystoscopy History of esophagogastroduodenoscopy (EGD) History of hernia repair "umbilical hernia repair performed by Dr. Abrams 11/2014" History of kidney surgery 2007 URETHRAL PLASTY (GRAFT FROM [place]) TEMPORARY SUPERPUBIC CATHETER (REMOVED) History of kidney surgery removal of transurethreal obstruction History of lithotripsy History of sinus surgery History of tonsillectomy and adenoidectomy History of tooth extraction Family History Father Lymphoma Myocardial infarction Mother Pancreatic cancer T2DM (type 2 diabetes mellitus) Other No family history of adverse response to anesthesia Social History Smoking Status: Never smoker Second Hand Exposure: No; Hx Alcohol Use: Yes Alcohol type: wine Hx Substance Use: No Preferred Language: Turkish Communication Ability: Effective Assayer Helper Required: No Beliefs That Will Affect Care: Voodoo Voodoo Beliefs: "Scientologist" marital status: Current Living Situation: Spouse Other Information That Helps Us Care for You: No Feels Safe at Home: Yes Safety Concerns: Feels Safe At This Time Assistive Devices: BiPap Review of Systems Review of Systems: ROS per HPI, all other systems reviewed and negative Physical Exam Constitutional: WD/WN, vitals as above + ill appearing; no acute distress Eyes: PERRL, conjunctivae normal, anicteric sclerae ENMT: external ear and nose normal, oropharynx normal Respiratory: normal respiratory effort; no respiratory distress Auscultation: + diminished lung sounds (Bilateral bases) Cardiovascular: Rate/Rhythm: regular rate and + irregularly irregular Vessels: normal peripheral pulses Extremities: + edema (+1 pitting edema BLE) Gastrointestinal (Abdomen): normal bowel sounds, soft, nontender, no hepatosplenomegaly Musculoskeletal: no cyanosis or clubbing, extremities motor strength 5/5 Skin: no rashes, warm and dry Neurologic: PERRL, EOMI, accommodation nl, no face palsy, no dysarthria Psychiatric: A+Ox3, euthymic affect Results & Data Results & Data ([facility]) Vital Signs (Past 12 Hours) Vital Signs Temp Pulse Pulse Resp BP BP Pulse Ox 09/18/21 18:44 36.8 C 82 18 194/102 H 94 09/18/21 18:21 72 20 181/97 H 94 09/18/21 18:02 79 22 198/109 H 96 09/18/21 16:25 83 18 193/106 H 96 09/18/21 15:26 80 20 180/115 H 98 09/18/21 14:42 74 199/103 H 97 09/18/21 13:36 72 206/116 H 09/18/21 12:56 74 211/114 H 96 09/18/21 10:17 36.4 C L 82 22 229/109 H 92 Laboratory Results Short CBC 09/18/21 Range/Units 11:10 WBC 10.50 (4.8-10.8) K/uL Hgb 15.9 (14.0-18.0) g/dL Hct 46.3 (42-52) % Plt Count 173 (130-400) K/uL BMP 09/18/21 11:10 Sodium 137 Potassium 3.6 Chloride 103 Carbon Dioxide 27 BUN 12 Creatinine 0.85 Glucose 153 H Calcium 8.6 Cardiac Enzymes 09/18/21 Range/Units 11:10 Troponin I < 0.03 (0-0.04) ng/ml Liver Function 09/18/21 Range/Units 11:10 Total Bilirubin 0.9 (0.2-1.0) mg/dl AST 15 (13-39) U/L ALT 19 (7-52) U/L Alkaline Phosphatase 130 H (34-104) U/L Albumin 3.9 (3.4-5.0) gm/dl Diagnostic Findings Chest/Abdomen X-ray 09/18/21 11:46 XR abdomen 2V w PA chest CLINICAL HISTORY: n/v, abd pain. Evaluate cardiopulmonary status COMPARISON STUDY: 08/23/2018 TECHNIQUE: Single frontal view of the chest and supine and decubitus films of the abdomen FINDINGS: Single frontal view of the chest demonstrates the heart size to be mildly enlarged. Compared to the previous examination, diffuse interstitial and alveolar edema is seen most characteristic of early congestive heart failure. No confluent alveolar opacities are seen. There is no evidence for pleural effusion. There is no acute osseous pathology. Abdomen: There is no free air or significant air-fluid levels present. The bowel gas pattern is within normal limits without evidence for dilatation or obstruction. There is no evidence for organomegaly or gross intra-abdominal mass. No abnormal calcifications are seen along the course of the urinary tracts bilaterally. No acute osseous pathology. IMPRESSION: 1. No acute intra-abdominal abnormality. 2. Evidence for diffuse interstitial and alveolar edema most characteristic of early congestive heart failure. ACT 112: Negative or not required by law. Electronically signed by: Timmy Bauer M.D. 09/18/2021 12:38 PM Abdomen/Pelvis CT 09/18/21 13:23 CT abd pelvis IV con only CLINICAL HISTORY: n/v abd pain COMPARISON STUDY: 08/23/2018 CT DOSE: 1347.08 mGy.cm TECHNIQUE: Standard CT of the Abdomen and Pelvis was performed with IV contrast. A dose lowering technique was utilized adhering to the principles of ALARA. Contrast Volume: Optiray 320, 94 ml. The patient did not receive oral contrast. FINDINGS: Lung base: Interstitial fibrotic changes are seen at both lung bases Abdominal cavity: There is no evidence for abdominal mass, adenopathy or ascites. Compared to the previous study, there is a stable peripherally enhancing fluid collection involving the periumbilical abdominal wall. Liver: There is diffuse decreased attenuation of the liver parenchyma representing fatty infiltration. Liver is enlarged. There is no evidence for enhancing mass lesion. Spleen: There is homogeneous attenuation of the splenic parenchyma. There is no enhancing mass lesion. Pancreas: There is homogeneous attenuation of the pancreatic parenchyma. There is no evidence for mass lesion or peripancreatic fluid collection. Gall Bladder: The gallbladder is well distended with no evidence for intraluminal calculi, wall thickening or pericholecystic edema. Adrenal glands: The adrenal glands are normal in size and attenuation. There is no evidence for enhancing mass lesion. Kidneys: There is homogeneous attenuation of the renal parenchyma bilaterally. Compared to previous examination, numerous bilateral nonobstructing renal calculi are again seen, right greater than left. There is no evidence for hydronephrosis. There is no evidence for enhancing mass. Subcentimeter cysts are again seen bilaterally. Bowel: There is a small hiatal hernia. The bowel loops are normally placed within the abdomen and pelvis without evidence for dilatation or obstruction. There is no evidence for mass lesion. There are no inflammatory changes present. There is no evidence for free air. There is again a normal appendix in the right lower quadrant. There are again small bilateral inguinal hernias containing peritoneal fat. No bowel loop herniation is seen. Bladder: The bladder is distended with no evidence for focal mass, calculus or diverticulum. : There is no evidence for pelvic mass or adenopathy. There is no evidence for pelvic ascites. The prostate is again grossly enlarged. Vasculature: There is no evidence for aneurysmal dilatation of the abdominal aorta. Atherosclerotic calcification is present. Osseous structures: There is no acute osseous pathology. IMPRESSION: 1. No acute intra-abdominal or pelvic abnormality. No significant interval change. 2. Hepatomegaly with fatty infiltration of the liver is again seen. 3. Small hiatal hernia. 4. Bilateral nonobstructing renal calculi are again seen, right greater than left. No hydronephrosis. 5. Additional nonacute findings are delineated above. ACT 112: Negative or not required by law. Electronically signed by: Timmy Bauer M.D. 09/18/2021 3:09 PM Code Status & VTE Plan Code Status Patient is a full code as per my discussion with him. Patient states that his , Cat, would make decisions on his behalf if he were to be unable to. VTE Prophylaxis Plan VTE Prophylaxis will be ordered: No Supervising Physician Co-Signing Physician Notes I have seen and examined the patient and have discussed the case with the provider above. I agree with the assessment and plan as stated. 70 yo M presents with ongoing nausea and vomiting after a steak salad yesterday afternoon. With the timing of onset of symptoms, an acute gastroenteritis seems likely. Cont supportive care and he is already feeling better with current treatment. His blood pressure is elevated, which is likely a result of his illness and noncompliance with blood pressure medications this morning due to vomiting. No diarrhea reported. He does also report some dyspnea on exertion and weight gain/lower extremity swelling over the last week. No orthopnea or PND. He sleeps with a CPAP nightly. Denies chest pain. Physical reveals an obese man that is ill appearing and in NAD. He is oxygenating 93% on 2LPM via nasal canula and doesn't use supplemental oxygen typically. Lungs are clear to auscultation throughout. Cardiac exam reveals S1/2 heard with an irregularly irregular rhythm and no murmurs. Abdomen is protuberant, soft, NTND. Skin is warm and dry. No gross neurologic deficits. Lab work reveals normal CBC and BMP, INR 2.1 on coumadin for afib, lipase is normal. Continue plan above with supportive care efforts including antiemetics and IVF. He is requiring parenteral medication for hypertensive urgency management. Will continue this in PCU overnight. Discharge medications may need to be adjusted if BP not improved after clinical improvement of symptoms. May also need to consider diuretic therapy for recent swelling and fluid retention, however, currently he has a dehydrating GI illness. Will encourage PO hydration and avoid IVF with CXR revealing pulmonary edema. DO Ruy (1) Atrial fibrillation Atrial fibrillation type: chronic Qualified Code(s): I48.2 - Chronic atrial fibrillation (2) Hypothyroidism Hypothyroidism type: unspecified Qualified Code(s): E03.9 - Hypothyroidism, unspecified
[2021-09-18] MEDS: hydrALAZINE HCL 25 MG TAB PO SCH (20:33)
--- NOTE | 2021-09-18 20:47 | XRay Report ---
XR chest 1V portable CLINICAL HISTORY: hypoxia TECHNIQUE: Single frontal radiograph of the chest was obtained. Comparison: Comparison is made to chest and abdomen radiographs 09/18/2021 FINDINGS: No lines and tubes are seen. Cardiomegaly is noted. Prominence and cephalization of the vasculature i s seen. No evidence of pleural effusion or pneumothorax. IMPRESSION: Cardiac megaly mild pulmonary edema. ACT 112: Negative or not required by law. Electronically signed by: Librado Spear M.D. 09/18/2021 8:46 PM
[2021-09-18] MEDS: POTASSIUM CHLORIDE CRTAB 20 MEQ TABCR PO SCH (20:53)
[2021-09-18] MEDS ORDERED: FINASTERIDE 5 MG TAB PO SCH (21:00)
[2021-09-18] MEDS ORDERED: METOPROLOL SUCC 25MG EXT REL TAB PO SCH (21:00)
[2021-09-18] MEDS ORDERED: TERAZOSIN HCL 5 MG CAP PO SCH (21:00)
[2021-09-18] MEDS: INSULIN ASPART PER UNIT SC SCH (21:02)
[2021-09-19 02:19] LABS: Hematocrit (blood only) 47.5 % (42-52); Hemoglobin 16.1 g/dL (14.0-18.0); Mean Corpuscular Hemoglobin 31.9 pg (25-34); Mean Corpuscular Hgb Conc 33.9 g/dL (32-36); Mean Corpuscular Volume 94.2 fL (80-100); Mean Platelet Volume 10.1 fL (7.4-10.4); Platelet Count 172 K/uL (130-400); RDW Coefficient of Variation 14.2 % (11.5-14.5); Red Blood Count 5.04 M/uL (4.7-6.1); White Blood Count 11.75 K/uL (4.8-10.8)
[2021-09-19 02:30] LABS: INR 2.2 (0.9-1.1); Prothrombin Time 22.7 Seconds (9.0-12.0)
[2021-09-19 03:35] LABS: BUN Creatinine Ratio 14.4 (10-20); Calcium 8.5 mg/dl (8.5-10.1); Est GFR (African American) 100.6 ml/min; Est GFR (Non-African American) 86.8 ml/min; Potassium 3.7 mmol/L (3.5-5.1)
[2021-09-19 03:39] LABS: Troponin I 0.03 ng/ml (0-0.04)
[2021-09-19] MEDS ORDERED: LEVOTHYROXINE SODIUM 100 MCG TABLET PO SCH (06:30)
[2021-09-19 07:41] LABS: Estimated Average Glucose 123 mg/dl; Hemoglobin A1C 5.9 % (4.5-5.6)
[2021-09-19] MEDS: INSULIN ASPART PER UNIT SC SCH ×3 (08:48→16:52)
[2021-09-19] MEDS ORDERED: METOPROLOL SUCC 50MG EXT REL TAB PO SCH (09:00)
[2021-09-19] MEDS ORDERED: ASPIRIN 81 MG ECTAB PO SCH (09:00)
[2021-09-19] MEDS ORDERED: MIRABEGRON ER 25 MG TAB PO SCH (09:00)
[2021-09-19] MEDS: hydrALAZINE HCL 25 MG TAB PO SCH ×2 (09:19→13:09)
[2021-09-19] MEDS: POTASSIUM CHLORIDE CRTAB 20 MEQ TABCR PO SCH ×2 (09:20→13:09)
--- NOTE | 2021-09-19 10:34 | Hospitalist Progress Note ---
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 Discussed with Neurologist Dr Daniels She recommends transfer to [facility] as posterior hemorrhagic CVA with risk of herniation with progression and may need neurological intervention not available here. Vit K 10mg stat Prothrombin conc ordered stat Discussed with [facility] transfer center [place] Patient accepted to Dr Velazquez, neurologist IV labetalol and IV hydralazine for BP control to goal SBP of 140-150 (5) Hypoxia: Plan: Patient was reported on admission to be intermittently, mildly hypoxic requiring 1 to 2 L at times Does have history of underlying RANDALL, this may be contributing CXR showing possible early CHF, proBNP 425 Will hold off diuretics for now due to GI losses and monitor. Will likely need diuretics at some point. He is currently on room air. (6) Prediabetes: Plan: Hgb A1c 6.0 08/2020 Glucose 153 on labs On Metformin for metabolic syndrome per chart review A1c 5.9 NovoLog per protocol while hospitalized (7) Prolonged QT interval: Plan: QTC 492 Daily EKG, avoid QTC prolonging agents (8) Atrial fibrillation: Plan: Rate controlled on metoprolol Anticoagulated on Coumadin, INR 2.2 Coumadin stopped in view of hemorrhagic right cerebellar CVA as above (9) RANDALL (obstructive sleep apnea): Plan: BiPAP as per home settings (10) Hypothyroidism: Plan: Continue levothyroxine Plan: updated Admission and Anticipated Discharge Date Admission Date: September 18, 2021 Subjective Patient seen and examined No nausea or vomiting this morning Reports improvement in abd discomfort Reports dry cough but no dyspnea this AM Reports weakness is improving. Reported feeling a bit wobbly on his feet when he used the bathroom earlier this morning Denied headache Denied any diarrhea, melena, hematochezia Denied any dysuria,hematuria. Denied fever, chills, nausea Physical Exam Constitutional: + well hydrated and + obese; no acute distress Eyes: PERRL, conjunctivae normal, anicteric sclerae ENMT: external ear and nose normal, oropharynx normal Respiratory: normal respiratory effort; no respiratory distress Diminished breath sounds lung bases Cardiovascular: Rate/Rhythm: + irregularly irregular S1 S2 Gastrointestinal (Abdomen): normal bowel sounds, soft, nontender, no hepatosplenomegaly Musculoskeletal: Pedal edema Neurologic: PERRL, EOMI, accommodation nl, no face palsy, no dysarthria No focal deficits in power No sensory deficits noted Dysmetria Psychiatric: A+Ox3, euthymic affect Results & Data Results & Data ([facility]) Vital Signs (Past 12 Hours) Vital Signs Temp Pulse Pulse Resp BP Pulse Ox 09/19/21 08:10 36.6 C 81 18 157/84 H 96 09/19/21 04:24 36.4 C L 90 18 134/88 93 09/19/21 01:45 87 09/18/21 23:28 36.8 C 80 18 174/80 H 94 Laboratory Results Abnormal lab results 09/18/21 09/18/21 09/18/21 Range/Units 11:10 11:10 11:10 WBC (4.8-10.8) K/uL RDW Std Deviation 47.9 H (36.4-46.3) fL Neut # (Auto) 9.05 H (1.4-6.5) K/uL Lymph # (Auto) 1.13 L (1.2-3.4) K/uL Immature Gran # (Auto) 0.04 H (0.00-0.02) K/uL PT 21.9 H (9.0-12.0) Seconds INR 2.1 H (0.9-1.1) Glucose 153 H (70-99(Fasting)) mg/dl POC Glucose (70-99) mg/dl Hemoglobin A1c (4.5-5.6) % Alkaline Phosphatase 130 H (34-104) U/L B-Natriuretic Peptide (0-100) pg/ml 09/18/21 09/18/21 09/19/21 Range/Units 13:43 20:17 02:07 WBC (4.8-10.8) K/uL RDW Std Deviation (36.4-46.3) fL Neut # (Auto) (1.4-6.5) K/uL Lymph # (Auto) (1.2-3.4) K/uL Immature Gran # (Auto) (0.00-0.02) K/uL PT (9.0-12.0) Seconds INR (0.9-1.1) Glucose 134 H (70-99(Fasting)) mg/dl POC Glucose 132 H (70-99) mg/dl Hemoglobin A1c (4.5-5.6) % Alkaline Phosphatase (34-104) U/L B-Natriuretic Peptide 425 H (0-100) pg/ml 09/19/21 09/19/21 09/19/21 Range/Units 02:07 02:07 02:07 WBC 11.75 H (4.8-10.8) K/uL RDW Std Deviation 49.0 H (36.4-46.3) fL Neut # (Auto) (1.4-6.5) K/uL Lymph # (Auto) (1.2-3.4) K/uL Immature Gran # (Auto) (0.00-0.02) K/uL PT 22.7 H (9.0-12.0) Seconds INR 2.2 H (0.9-1.1) Glucose (70-99(Fasting)) mg/dl POC Glucose (70-99) mg/dl Hemoglobin A1c 5.9 H (4.5-5.6) % Alkaline Phosphatase (34-104) U/L B-Natriuretic Peptide (0-100) pg/ml 09/19/21 09/19/21 Range/Units 07:26 11:08 WBC (4.8-10.8) K/uL RDW Std Deviation (36.4-46.3) fL Neut # (Auto) (1.4-6.5) K/uL Lymph # (Auto) (1.2-3.4) K/uL Immature Gran # (Auto) (0.00-0.02) K/uL PT (9.0-12.0) Seconds INR (0.9-1.1) Glucose (70-99(Fasting)) mg/dl POC Glucose 125 H 128 H (70-99) mg/dl Hemoglobin A1c (4.5-5.6) % Alkaline Phosphatase (34-104) U/L B-Natriuretic Peptide (0-100) pg/ml (1) Atrial fibrillation Atrial fibrillation type: chronic Qualified Code(s): I48.2 - Chronic atrial fibrillation (2) Hypothyroidism Hypothyroidism type: unspecified Qualified Code(s): E03.9 - Hypothyroidism, unspecified
--- NOTE | 2021-09-19 10:48 | Electrocardiogram Report ---
Test Reason : Blood Pressure : / mmHG Vent. Rate : 081 BPM Atrial Rate : 241 BPM P-R Int : 000 ms QRS Dur : 100 ms QT Int : 426 ms P-R-T Axes : 000 005 154 degrees QTc Int : 494 ms Atrial fibrillation Prolonged QT Abnormal ECG When compared with ECG of 18-SEP-2021 11:37, No significant change was found Confirmed by Benedict Hutchinson ([id number]) on 09/19/2021 10:48:14 AM Referred By: REFERRED SELF Confirmed By:Anton Hutchinson
[2021-09-19] MEDS ORDERED: LOSARTAN POTASSIUM 50 MG TAB PO SCH (11:30)
[2021-09-19] MEDS ORDERED: DIGOXIN 0.125 MG TAB PO SCH (11:30)
--- NOTE | 2021-09-19 15:22 | CT Scan Report ---
CT SCAN OF THE BRAIN WITHOUT IV CONTRAST CLINICAL HISTORY: Strokelike symptoms. COMPARISON STUDY: No priors. TECHNIQUE: Unenhanced axial CT scan of the brain is performed from the vertex to the skull base. A do se lowering technique was utilized adhering to the principles of ALARA. CT DOSE: 729.78 mGycm FINDINGS: Brain parenchyma: There is a 2.1 x 1.5 cm hemorrhage centered in the right cerebellar hemisphere on a xial image #9. There is mild surrounding edema with minimal mass effect on the fourth ventricle. No a dditional foci of hemorrhage are identified. There is no midline shift or evidence of acute territori al ischemia by CT criteria. There are age-related involutional changes noting mild to moderate subco rtical and periventricular microangiopathic change. No extra-axial fluid collection is seen. Ventricles, sulci, cisterns: Prominent secondary to involutional change. No intraventricular blood is identified. Intracranial vasculature: There is atherosclerotic calcification of the cavernous carotid and vertebr al arteries. Calvarium: Unremarkable. Sinuses and mastoids: The visualized paranasal sinuses are clear. The mastoid air cells are well pneu matized. Orbits: The bony orbits are grossly intact. There are bilateral ocular lens implants. IMPRESSION: 1. There is a 2.1 x 1.5 cm hemorrhage centered in the right cerebellar hemisphere with mild surroundi ng edema. 2. No additional foci of hemorrhage are identified. 3. There is no midline shift or evidence of acute territorial ischemia by CT criteria. ACT 112: Negative or not required by law. Electronically signed by: Dain Lopez M.D. 09/19/2021 3:19 PM
[2021-09-19] MEDS ORDERED: PHYTONADIONE 10 MG in DEXTROSE 5% 50 ML IV ONE (15:40)
--- NOTE | 2021-09-19 15:43 | Neurology Consultation ---
Date of Consultation September 19, 2021 Assessment & Plan (1) Cerebellar hemorrhage: 1. hold Coumadin 2. k centra given for reversal of INR 3. blood pressure control between 140-150 systolic 4. no AED at this time 5. [place] accepting for transfer for close observation (2) Nausea and vomiting: (3) Atrial fibrillation: Supervising Physician Co-Signing Physician Notes I have seen and discussed above patient with Dr Jennifer Shen, neurology. pt seen and examined. sudden vertigo,n,v dysarthria, genl weakness, ataxia and incoordination. pt was been will recently without trauma. pt was seen, markedly hypertensive. PT noted today that pt was ataxia. CT head shows a 2.5 x 1.5 cm r cerebellar hem with mass effect on 4the ventINR 2.2. Urgent consult ordered. Advised to reverse coumadin. Dr Mendiola gave Vit k and consulted with heme and gave kcentra. pt awake, alert, mild dysarthria. perrl, nml eom no papilledema, nml gutierrez, mild dysartric. no fac, ial asymm. decreased gag bl mild rue weakness with drift, loss of cerebellar check, dec r robin, clumsy on r FNF, less right heel to mendoza. impression: likely hypertensive hemorrhage with therapseutic INR> agree with reversal of anticoagulation. Good control bp within 140-160 as goal. transfer to [place] as pt may need surgical evacuation if r cerebellar hem increases in size or pt changes clinically. will ultimately need mri to r/o underlying lesion which appears unlikely. MD Denzel History of Present Illness Reason for Consultation: hemorrhagic Stroke Requesting Physician: Danuta Oliveira MD Attending Physician: Danuta Oliveira MD History of Present Illness is a 70 year old male with PMH metabolic syndrome, hypothyroidism, preDM, RANDALL on BiPAP, chronic afib anticoagulated on Coumadin, HTN, hypospadias, history of ureteral stricture s/p repair, who presents the [facility] ED 09/19/21 for evaluation of nausea, vomiting, generalized weakness. He went to bed last evening feeling in his usual state of health woke up around 2 AM and had sudden onset of nausea and several episodes of vomiting overnight (about 15) and a few episodes of diarrhea. He had associated generalized abdominal pain. He was very weak and unable to get off of the toilet for about 2 hours. EMS was called and he was brought to the ED for further evaluation. Had some associated lightheadedness and dizziness however no syncopal event.He has chronic urinary incontinence and frequency and baseline, unchanged. In the ED, patient was found to be significantly hypertensive 229/109. He was mildly intermittently hypoxic requiring 1 to 2 L nasal cannula. Labs are unremarkable. CT ABD/pelvis unremarkable for acute findings. CXR suggestive of possible early CHF. Patient was given IV hydralazine. His is no longer feeling nausea or had any vomiting. denies CP, SOB abdominal pain Allergies Allergy/AdvReac Type Severity Reaction Status Date / Time amlodipine Allergy Severe LE Verified 09/18/21 14:30 swelling and calves got "rock hard" Cyqetvf-OKL-RyF Reductase Allergy Intermediate leg pains Verified 09/18/21 14:30 Inhibitor [Wocklgw-Txz-Tig Reductase Inhibitor] amoxicillin Allergy Mild RASH Verified 09/18/21 14:30 chlorhexidine Allergy Mild RASH, SKIN Verified 09/18/21 14:30 TURNED RED AND PEELED Penicillins Allergy Mild RASH Verified 09/18/21 14:30 Home Medications Medication Instructions Recorded Confirmed Type amiloride 5 mg tablet 10 mg PO HS 08/23/18 09/18/21 History digoxin 125 mcg (0.125 mg) tablet 125 mcg PO QDL 08/23/18 09/18/21 History finasteride 5 mg tablet 5 mg PO HS 08/23/18 09/18/21 History hydralazine 50 mg tablet 1.5 tab PO TID 08/23/18 09/18/21 History levothyroxine 75 mcg tablet 75 mcg PO Q OTHER DAY 08/23/18 09/18/21 History losartan 100 mg tablet 100 mg PO QDL 08/23/18 09/18/21 History metformin 500 mg tablet 500 mg PO QAM 08/23/18 09/18/21 History metoprolol succinate 50 mg 50 mg PO DAILY 08/23/18 09/18/21 History tablet,extended release 24 hr potassium chloride 20 mEq 20 meq PO TID 08/23/18 09/18/21 History tablet,extended release(part/cryst) cyanocobalamin (vitamin B-12) 1,000 mcg PO QAM 09/18/19 09/18/21 History 1,000 mcg tablet magnesium hydroxide 400 mg/5 mL 15 ml PO DAILY PRN 12/18/19 09/18/21 History oral suspension (Milk of Magnesia) polyethylene glycol 3350 17 17 g PO DAILY PRN 12/18/19 09/18/21 History gram/dose oral powder (Miralax) terazosin 5 mg capsule 5 mg PO HS #90 cap 07/20/21 09/18/21 Rx evolocumab 140 mg/mL subcutaneous 140 mg SUBCUT Q14D 09/18/21 09/18/21 History pen injector (Brent Gaitanick) furosemide 20 mg tablet 20 mg PO DAILY PRN 09/18/21 09/18/21 History levothyroxine 100 mcg tablet 100 mcg PO Q OTHER DAY 09/18/21 09/18/21 History metoprolol succinate 50 mg 25 mg PO HS 09/18/21 09/18/21 History tablet,extended release 24 hr mirabegron 25 mg tablet,extended 50 mg PO QAM 09/18/21 09/18/21 History release 24 hr (Myrbetriq) Patient History Medical History (Updated 09/19/21 @ 17:59 by Luz Elena Reyes DO) Atrial fibrillation Chronic; on Warfarin. BPH (benign prostatic hyperplasia) Chronic rhinitis Cirrhosis of liver NON ETOH History of colon polyps History of kidney stones History of recurrent UTI (urinary tract infection) History of urethral stricture HLD (hyperlipidemia) HTN (hypertension) Hypospadias Hypothyroidism Metabolic syndrome metformin Nephrolithiasis Neuropathy BLE RANDALL (obstructive sleep apnea) USES BIPAP Osteoarthritis Prediabetes UTI (urinary tract infection) Surgical History H/O sinus surgery History of cardiac cath 2000 NO STENTS History of cystoscopy History of esophagogastroduodenoscopy (EGD) History of hernia repair "umbilical hernia repair performed by Dr. Abrams 11/2014" History of kidney surgery 2007 URETHRAL PLASTY (GRAFT FROM [place]) TEMPORARY SUPERPUBIC CATHETER (REMOVED) History of kidney surgery removal of transurethreal obstruction History of lithotripsy History of sinus surgery History of tonsillectomy and adenoidectomy History of tooth extraction Family History Father Lymphoma Myocardial infarction Mother Pancreatic cancer T2DM (type 2 diabetes mellitus) Other No family history of adverse response to anesthesia Social History Smoking Status: Never smoker Second Hand Exposure: No; Hx Alcohol Use: Yes Alcohol type: wine Hx Substance Use: No Preferred Language: British Communication Ability: Effective 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 Required: No Beliefs That Will Affect Care: Cheondoism Cheondoism Beliefs: "Temple" marital status: Current Living Situation: Spouse Other Information That Helps Us Care for You: No Feels Safe at Home: Yes Safety Concerns: Feels Safe At This Time Assistive Devices: Oxygen - Continuous Review of Systems Review of Systems: All systems reviewed & are unremarkable except as noted in HPI & below Physical Exam Physical Exam: Physical Exam: Constitutional: appearance over nourished, healthy Ears, Nose, Mouth and Throat: mucous membranes moist, no injection and skin normal, eyes normal Cardiovascular: irregular Respiratory: course breath sounds Musculoskeletal: non pitting peripheral edema Skin: no stigmata of neurocutaneous disease noted and normal and intact Eyes: extraocular muscles intact (EOMI) and pupils equal, round and reactive to light (PERRL) NEUROLOGIC EXAMINATION: Mental status: Alert and interactive Oriented to full date and location Oriented to person Speech slurred thick speech Cranial Nerves smile eye brow raise symmetric Sensory: intact to light cool touch Coordination: unable to control his arms to finger to nose , dysmetric Gait/Stance: Posture lying in bed Motor: Negative for pronator drift of out stretched arms with eyes closed. 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 bilaterally 4+/5, hip flex 4+/5 Results & Data ([facility]) Vital Signs (Past 12 Hours) Vital Signs Temp Pulse Resp BP Pulse Ox 09/19/21 15:37 36.4 C L 75 18 178/103 H 95 09/19/21 11:37 36.6 C 67 16 142/77 H 96 09/19/21 08:10 36.6 C 81 18 157/84 H 96 09/19/21 04:24 36.4 C L 90 18 134/88 93 Laboratory Results Abnormal lab results 09/18/21 09/19/21 09/19/21 Range/Units 20:17 02:07 02:07 WBC 11.75 H (4.8-10.8) K/uL RDW Std Deviation 49.0 H (36.4-46.3) fL PT (9.0-12.0) Seconds INR (0.9-1.1) Glucose 134 H (70-99(Fasting)) mg/dl POC Glucose 132 H (70-99) mg/dl Hemoglobin A1c (4.5-5.6) % 09/19/21 09/19/21 09/19/21 Range/Units 02:07 02:07 07:26 WBC (4.8-10.8) K/uL RDW Std Deviation (36.4-46.3) fL PT 22.7 H (9.0-12.0) Seconds INR 2.2 H (0.9-1.1) Glucose (70-99(Fasting)) mg/dl POC Glucose 125 H (70-99) mg/dl Hemoglobin A1c 5.9 H (4.5-5.6) % 09/19/21 09/19/21 Range/Units 11:08 16:04 WBC (4.8-10.8) K/uL RDW Std Deviation (36.4-46.3) fL PT (9.0-12.0) Seconds INR (0.9-1.1) Glucose (70-99(Fasting)) mg/dl POC Glucose 128 H 113 H (70-99) mg/dl Hemoglobin A1c (4.5-5.6) % Diagnostic Findings Chest /abd xray-No acute intra-abdominal abnormality. Evidence for diffuse interstitial and alveolar edema most characteristic of early congestive heart failure. Abd/pelvis CT-No acute intra-abdominal or pelvic abnormality. No significant interval change. . Hepatomegaly with fatty infiltration of the liver is again seen. . Small hiatal hernia. Bilateral nonobstructing renal calculi are again seen, right greater than left. No hydronephrosis. CT head-There is a 2.1 x 1.5 cm hemorrhage centered in the right cerebellar hemisphere with mild surrounding edema. No additional foci of hemorrhage are identified. There is no midline shift or evidence of acute territorial ischemia by CT criteria. (1) Atrial fibrillation Atrial fibrillation type: chronic Qualified Code(s): I48.2 - Chronic atrial fibrillation
[2021-09-19] MEDS ORDERED: PROTHROMBIN COMP CONC- KCENTRA 2,500 UNITS in SYRINGE 0 ML IV ONE (16:00)
[2021-09-19] MEDS ORDERED: LABETALOL HCL IV 5 MG/ML 20ML IV STA (16:34)
[2021-09-19] MEDS ORDERED: hydrALAZINE HCL 20 MG/ML VIAL IV PRN (16:37)
--- NOTE | 2021-09-19 17:23 | Discharge Summary ---
Date of Service September 19, 2021 Admission HPI Per Admitting Provider 70-year-old male with PMH metabolic syndrome, hypothyroidism, prediabetes, RANDALL on BiPAP, chronic atrial fibrillation anticoagulated on Coumadin, HTN, hypospadias, history of ureteral stricture s/p repair, and other problems to below who presents the ED for evaluation of nausea, vomiting, generalized weakness. Patient states that he went to bed last evening feeling in his usual state of health. States that he woke up around 2 AM and had sudden onset of nausea and vomiting. Patient reports several episodes of vomiting overnight (about 15) and a few episodes of diarrhea. He had associated generalized abdominal pain. This caused him to be very weak and he was unable to get off of the toilet for about 2 hours. EMS was called and patient was brought to the ED for further evaluation. Patient denies hematemesis, coffee-ground emesis, bright red bleeding per rectum, dark tarry stools. No fevers or chills. Had some associated lightheadedness and dizziness however no syncopal event. Denies chest pain or shortness of breath. Has chronic urinary incontinence and frequency and baseline, unchanged. In the ED, patient was found to be significantly hypertensive 229/109. He was mildly intermittently hypoxic requiring 1 to 2 L nasal cannula. Labs are unremarkable. CT ABD/pelvis unremarkable for acute findings. CXR suggestive of possible early CHF. Patient was given IV hydralazine 10 mg, IV metoprolol 5 mg, IVF. Admission Exam Per Admitting Provider Constitutional: WD/WN, vitals as above + ill appearing; no acute distress Eyes: PERRL, conjunctivae normal, anicteric sclerae ENMT: external ear and nose normal, oropharynx normal Respiratory: normal respiratory effort; no respiratory distress Auscultation: + diminished lung sounds (Bilateral bases) Cardiovascular: Rate/Rhythm: regular rate and + irregularly irregular Vessels: normal peripheral pulses Extremities: + edema (+1 pitting edema BLE) Gastrointestinal (Abdomen): normal bowel sounds, soft, nontender, no hepatosplenomegaly Musculoskeletal: no cyanosis or clubbing, extremities motor strength 5/5 Skin: no rashes, warm and dry Neurologic: PERRL, EOMI, accommodation nl, no face palsy, no dysarthria Psychiatric: A+Ox3, euthymic affect Principal Diagnosis Right cerebellar hemorrhagic stroke Discharge Exam Constitutional + well hydrated and + obese; no acute distress Eyes PERRL, conjunctivae normal, anicteric sclerae ENMT external ear and nose normal, oropharynx normal Respiratory normal respiratory effort; no respiratory distress Cardiovascular Rate/Rhythm: + irregularly irregular S1 S2 Gastrointestinal (Abdomen) normal bowel sounds, soft, nontender, no hepatosplenomegaly Neurologic PERRL, EOMI, accommodation nl, no face palsy, no dysarthria No focal deficits in power No sensory deficits noted Dysmetria Psychiatric A+Ox3, euthymic affect Discharge Data Allergies Allergy/AdvReac Type Severity Reaction Status Date / Time amlodipine Allergy Severe LE Verified 09/18/21 14:30 swelling and calves got "rock hard" Aydhdso-EOM-RnH Reductase Allergy Intermediate leg pains Verified 09/18/21 14:30 Inhibitor [Pqzqwxo-Fql-Kdr Reductase Inhibitor] amoxicillin Allergy Mild RASH Verified 09/18/21 14:30 chlorhexidine Allergy Mild RASH, SKIN Verified 09/18/21 14:30 TURNED RED AND PEELED Penicillins Allergy Mild RASH Verified 09/18/21 14:30 Consultations 09/18/21 16:18 ED Decision to Admit Stat 09/19/21 15:32 Consult Neurology Stat Ordered Studies 09/18/21 13:23 CT abd pelvis IV con only Stat Lung base: Interstitial fibrotic changes are seen at both lung bases Abdominal cavity: There is no evidence for abdominal mass, adenopathy or ascites. Compared to the previous study, there is a stable peripherally enhancing fluid collection involving the periumbilical abdominal wall. Liver: There is diffuse decreased attenuation of the liver parenchyma representing fatty infiltration. Liver is enlarged. There is no evidence for enhancing mass lesion. Spleen: There is homogeneous attenuation of the splenic parenchyma. There is no enhancing mass lesion. Pancreas: There is homogeneous attenuation of the pancreatic parenchyma. There is no evidence for mass lesion or peripancreatic fluid collection. Gall Bladder: The gallbladder is well distended with no evidence for intraluminal calculi, wall thickening or pericholecystic edema. Adrenal glands: The adrenal glands are normal in size and attenuation. There is no evidence for enhancing mass lesion. Kidneys: There is homogeneous attenuation of the renal parenchyma bilaterally. Compared to previous examination, numerous bilateral nonobstructing renal calculi are again seen, right greater than left. There is no evidence for hydronephrosis. There is no evidence for enhancing mass. Subcentimeter cysts are again seen bilaterally. Bowel: There is a small hiatal hernia. The bowel loops are normally placed within the abdomen and pelvis without evidence for dilatation or obstruction. There is no evidence for mass lesion. There are no inflammatory changes present. There is no evidence for free air. There is again a normal appendix in the right lower quadrant. There are again small bilateral inguinal hernias containing peritoneal fat. No bowel loop herniation is seen. Bladder: The bladder is distended with no evidence for focal mass, calculus or diverticulum. : There is no evidence for pelvic mass or adenopathy. There is no evidence for pelvic ascites. The prostate is again grossly enlarged. Vasculature: There is no evidence for aneurysmal dilatation of the abdominal aorta. Atherosclerotic calcification is present. Osseous structures: There is no acute osseous pathology. IMPRESSION: 1. No acute intra-abdominal or pelvic abnormality. No significant interval change. 2. Hepatomegaly with fatty infiltration of the liver is again seen. 3. Small hiatal hernia. 4. Bilateral nonobstructing renal calculi are again seen, right greater than left. No hydronephrosis. 5. Additional nonacute findings are delineated above. 09/19/21 14:16 CT head/brain wo con Stat Brain parenchyma: There is a 2.1 x 1.5 cm hemorrhage centered in the right cerebellar hemisphere on axial image #9. There is mild surrounding edema with minimal mass effect on the fourth ventricle. No additional foci of hemorrhage are identified. There is no midline shift or evidence of acute territorial ischemia by CT criteria. There are age-related involutional changes noting mild to moderate subcortical and periventricular microangiopathic change. No extra- axial fluid collection is seen. Ventricles, sulci, cisterns: Prominent secondary to involutional change. No intraventricular blood is identified. Intracranial vasculature: There is atherosclerotic calcification of the cavernous carotid and vertebral arteries. Calvarium: Unremarkable. Sinuses and mastoids: The visualized paranasal sinuses are clear. The mastoid air cells are well pneumatized. Orbits: The bony orbits are grossly intact. There are bilateral ocular lens implants. IMPRESSION: 1. There is a 2.1 x 1.5 cm hemorrhage centered in the right cerebellar hemisphere with mild surrounding edema. 2. No additional foci of hemorrhage are identified. 3. There is no midline shift or evidence of acute territorial ischemia by CT criteria. Hospital Course (1) Nausea and vomiting: (2) Cerebellar hemorrhage: (3) Hypertensive emergency: (4) CVA (cerebral vascular accident): Patient presenting from home with nausea and multiple episodes of vomiting CT ABD/pelvis unremarkable for acute findings BP was significantly elevated on admission 229/109 On evaluation earlier today, he reported feeling dizzy and wobbly on his feet when he went to use the bathroom Was noted to have ataxic gait which he reported is new for him Stat CT head revealed hemorrhagic right cerebellar CVA Warfarin stopped Neuro c/s stat. Discussed with Neurologist Dr Daniels She recommends transfer to [facility] as posterior hemorrhagic CVA with risk of herniation with progression and may need neurological intervention not available here. Vit K 10mg stat Prothrombin conc ordered stat Discussed with [facility] transfer center [facility] Patient accepted to transfer to [facility] Start nicardipine drip for BP control to goal SBP of 140-150 (5) Hypoxia: Patient was reported on admission to be intermittently, mildly hypoxic requiring 1 to 2 L at times Does have history of underlying RANDALL, this may be contributing CXR showing possible early CHF, proBNP 425 He is currently on room air. (6) Prediabetes: Hgb A1c 6.0 08/2020 Glucose 153 on labs On Metformin for metabolic syndrome per chart review A1c 5.9 (7) Prolonged QT interval: QTC 492 Daily EKG, avoid QTC prolonging agents (8) Atrial fibrillation: Rate controlled on metoprolol Anticoagulated on Coumadin, INR 2.2 Coumadin stopped in view of hemorrhagic right cerebellar CVA as above (9) RANDALL (obstructive sleep apnea): BiPAP as per home settings (10) Hypothyroidism: Continue levothyroxine Total Time Total Time Spent Total Time Spent (In Minutes): 50 Total Time Includes: Examination of the Patient, Discharge Planning, Medication Reconciliation and Communication With Other Providers Discharge Plan Discharge Items Patient Disposition: Transfer Acute Care Hospital Reason For Visit: Nausea vomiting Discharge Diagnosis: Right cerebellar hemorrhagic stroke Activity: Resume your previous activity Non-emergency contact: Primary Care Provider and Neurologist Call non-emergency contact if: your symptoms worsen Follow-up/Referrals: Danilo Siegel MD [Primary Care Provider] - Diet: Heart Healthy Addtl Attending Provider Instructions: Mr Edwards You came to the hospital complaining of nausea and vomiting. Your blood pressure was elevated You were noted to have abnormal gait today. CT head showed a bleed in your brain. Treatment for brain bleed (hemorrhagic stroke) was started and you are being transferred to [facility] for further management. Pending Studies at Discharge: No Stand-Alone Forms: My [facility] Skilled Items Patient informed of condition?: Yes DNR: No Discharge Level of Care: Other Communicable Disease: No Discharge Prognosis: Stable Lines: Peripheral IV Urinary Catheter: No Medications and DC Order Prescriptions: Continued terazosin 5 mg capsule 5 mg PO HS Qty: 90 RF: 2 cyanocobalamin (vitamin B-12) 1,000 mcg Tablet 1,000 mcg PO QAM RF: 0 magnesium hydroxide [Milk of Magnesia] 400 mg/5 mL Suspension 15 ml PO DAILY PRN (Reason: Constipation) RF: 0 polyethylene glycol 3350 [Miralax] 17 gram/dose Powder 17 g PO DAILY PRN (Reason: Constipation) RF: 0 metformin 500 mg tablet 500 mg PO QAM RF: 0 metoprolol succinate 50 mg tablet extended release 24 hr 50 mg PO DAILY RF: 0 levothyroxine 75 mcg tablet 75 mcg PO Q OTHER DAY RF: 0 amiloride 5 mg tablet 10 mg PO HS RF: 0 potassium chloride 20 mEq tablet,ER particles/crystals 20 meq PO TID RF: 0 hydralazine 50 mg tablet 1.5 tab PO TID RF: 0 digoxin 125 mcg tablet 125 mcg PO QDL RF: 0 losartan 100 mg tablet 100 mg PO QDL RF: 0 finasteride 5 mg tablet 5 mg PO HS RF: 0 levothyroxine 100 mcg tablet 100 mcg PO Q OTHER DAY RF: 0 Myrbetriq 25 mg tablet extended release 24 hr 50 mg PO QAM RF: 0 metoprolol succinate 50 mg tablet extended release 24 hr 25 mg PO HS RF: 0 furosemide 20 mg Tablet 20 mg PO DAILY PRN (Reason: Edema) RF: 0 Repatha SureClick 140 mg/mL pen injector 140 mg SUBCUT Q14D RF: 0 Discontinued warfarin 5 mg Tablet 5 mg PO SUMOTUTHFRSA RF: 0 warfarin 5 mg Tablet 2.5 mg PO WE RF: 0 aspirin 81 mg Tablet,Delayed Release (Dr/Ec) 81 mg PO Q OTHER DAY RF: 0 Discharge Orders: Discharge Order (Routine); Ordered 09/19/21 Ordered By: Danuta Oliveira Admission Data Admit Date/Time: 09/19/21 16:49 Attending Provider: Danuta Oliveira I. Admclark Provider: Pau Redmond Primary Care Provider: Danilo Siegel Other Providers: Pau Redmond ; Jennifer Shen Other Interventions: Discharge Summary Assessment (RN) Last Done: 09/19/21 18:45
[2021-09-19] MEDS ORDERED: niCARdipine 25 MG in SODIUM CHLORIDE 0.9% 240 ML IV SCH (18:00)
[2021-09-20] MEDS ORDERED: WARFARIN SOD 2.5 MG TAB PO SCH (16:00)
== END 2021-09-19 18:42 | disposition short-term general hospital (02) | DRG 65 ==
LOC: ED 10:08 → 2S 10:08 → SUATTDRO 16:33 → 2S 18:21

== ENCOUNTER 2021-11-15 08:01 | Inpatient (IN) ==
--- NOTE | 2021-11-15 08:23 | Emergency Department Note ---
History of Present Illness General Chief complaint: Abdominal Pain Stated complaint: lower abdominal pain Time Seen by Provider: 11/15/21 08:01 History of Present Illness Maximum Pain Intensity: 3 This is a 71-year-old male who presents to the emergency department via ambulance with complaints of "lower abdominal pain". The patient began with lower abdominal discomfort yesterday. No known trauma or injury. He notes an indwelling Fernandez catheter which has been producing darker urine than usual. He points to the bilateral lower abdominal region as location of pain. He also feels somewhat short of breath but no chest pain. Current pain 09/07. He notes that his last bowel movement was this morning. He does note recent history of CVA. This caused residual unilateral deficits. No recent fevers that he is aware of. The patient specifically denies any headache, neck pain, chest pain. He denies any new deficits or weakness. He does have residual right-sided deficits. Home Medications Medication Instructions Recorded Confirmed Type amiloride 5 mg tablet 10 mg PO DAILY 08/23/18 11/15/21 History digoxin 125 mcg (0.125 mg) tablet 125 mcg PO DAILY 08/23/18 11/15/21 History finasteride 5 mg tablet 5 mg PO HS 08/23/18 11/15/21 History levothyroxine 75 mcg tablet 75 mcg PO Q OTHER DAY 08/23/18 11/15/21 History losartan 100 mg tablet 100 mg PO DAILY 08/23/18 11/15/21 History metformin 500 mg tablet 500 mg PO QAM 08/23/18 11/15/21 History cyanocobalamin (vitamin B-12) 1,000 mcg PO QAM 09/18/19 11/15/21 History 1,000 mcg tablet magnesium hydroxide 400 mg/5 mL 15 ml PO DAILY PRN 12/18/19 11/15/21 History oral suspension (Milk of Magnesia) evolocumab 140 mg/mL subcutaneous 140 mg SUBCUT Q14D 09/18/21 11/15/21 History pen injector (Repatha SureJoeyick) furosemide 20 mg tablet 20 mg PO .MOTUWE& QOD PRN 09/18/21 11/15/21 History levothyroxine 100 mcg tablet 100 mcg PO Q OTHER DAY 09/18/21 11/15/21 History apixaban 5 mg tablet (Eliquis) 5 mg PO BID 11/15/21 11/15/21 History carvedilol 12.5 mg tablet 12.5 mg PO BID 11/15/21 11/15/21 History docusate sodium 100 mg tablet 100 mg PO BID 11/15/21 11/15/21 History evolocumab 140 mg/mL subcutaneous 140 mg SUBCUT .EVERY OTHER WEEK 11/15/21 11/15/21 History pen injector (Replennya SureClick) fluticasone propionate 50 2 spray INTRANASAL BID PRN 11/15/21 11/15/21 History mcg/actuation nasal spray,suspension (Flonase Allergy Relief) hydralazine 100 mg tablet 100 mg PO Q8 11/15/21 11/15/21 History isosorbide mononitrate 120 mg 120 mg PO QAM 11/15/21 11/15/21 History tablet,extended release 24 hr loratadine 10 mg tablet 10 mg PO DAILY 11/15/21 11/15/21 History sodium chloride 0.65 % nasal spray 2 spray INTRANASAL DIRECTED 11/15/21 11/15/21 History aerosol terazosin 5 mg capsule 10 mg PO HS 11/15/21 11/15/21 History Allergies Allergy/AdvReac Type Severity Reaction Status Date / Time amlodipine Allergy Severe LE Verified 11/15/21 12:34 swelling and calves got "rock hard" Ncvingd-SYU-XwL Reductase Allergy Intermediate leg pains Verified 11/15/21 12:34 Inhibitor [Jeidmac-Knd-Ugt Reductase Inhibitor] amoxicillin Allergy Mild RASH Verified 11/15/21 12:34 chlorhexidine Allergy Mild RASH, SKIN Verified 11/15/21 12:34 TURNED RED AND PEELED Penicillins Allergy Mild RASH Verified 11/15/21 12:34 Past Med/Surg History Medical History Atrial fibrillation Chronic; on eliquis BPH (benign prostatic hyperplasia) Chronic rhinitis Cirrhosis of liver NON ETOH History of colon polyps History of kidney stones History of recurrent UTI (urinary tract infection) History of urethral stricture HLD (hyperlipidemia) HTN (hypertension) Hx of intracranial hemorrhage Hypospadias Hypothyroidism Metabolic syndrome metformin Nephrolithiasis Neuropathy BLE RANDALL (obstructive sleep apnea) USES BIPAP Osteoarthritis Prediabetes UTI (urinary tract infection) Surgical History H/O sinus surgery History of cardiac cath 2000 NO STENTS History of cystoscopy History of esophagogastroduodenoscopy (EGD) History of hernia repair "umbilical hernia repair performed by Dr. Abrams 11/2014" History of kidney surgery 2007 URETHRAL PLASTY (GRAFT FROM [place]) TEMPORARY SUPERPUBIC CATHETER (REMOVED) History of kidney surgery removal of transurethreal obstruction History of lithotripsy History of sinus surgery History of tonsillectomy and adenoidectomy History of tooth extraction Family History Father Lymphoma Myocardial infarction Mother Pancreatic cancer T2DM (type 2 diabetes mellitus) Other No family history of adverse response to anesthesia Social History Smoking Status: Never smoker Second Hand Exposure: No; Hx Alcohol Use: No Hx Substance Use: No Preferred Language: Kosovan Communication Ability: Effective Operations Engineer Required: No Beliefs That Will Affect Care: Amish Amish Beliefs: "Buddhist" marital status: Current Living Situation: Spouse Feels Safe at Home: Yes Assistive Devices: Oxygen - Continuous Review of Systems A total of 10 systems reviewed and were otherwise negative Physical Exam Vital Signs Vital Signs - 24 hr 11/15/21 08:08 11/15/21 08:09 11/15/21 08:30 Temperature 36.8 C Temperature Source Oral Pulse Rate 110 H 104 H 106 H Pulse Rate [Apical] Pulse Rate from SpO2 Sensor 112 H 114 H Pulse Rhythm [Apical] Respiratory Rate 28 H 25 H 46 H Blood Pressure 245/129 H Blood Pressure [Left Arm] Blood Pressure Mean 167 Blood Pressure Mean [Left Arm] Pulse Oximetry 93 93 94 Oxygen Delivery Method Room Air Oxygen Flow Rate Sepsis Recent Fever Within 48 Hours No Sepsis New/Unexplained Change in Mental Status No Sepsis Action Taken by Nursing Physician Notified 11/15/21 08:37 11/15/21 08:41 11/15/21 09:02 Temperature Temperature Source Pulse Rate 114 H Pulse Rate [Apical] Pulse Rate from SpO2 Sensor 114 H 109 H Pulse Rhythm [Apical] Respiratory Rate 44 H Blood Pressure 224/140 H Blood Pressure [Left Arm] Blood Pressure Mean 168 Blood Pressure Mean [Left Arm] Pulse Oximetry 95 90 Oxygen Delivery Method Room Air Oxygen Flow Rate Sepsis Recent Fever Within 48 Hours Sepsis New/Unexplained Change in Mental Status Sepsis Action Taken by Nursing 11/15/21 09:04 11/15/21 09:07 11/15/21 09:30 Temperature Temperature Source Pulse Rate 109 H 108 H Pulse Rate [Apical] 101 H Pulse Rate from SpO2 Sensor 106 H 101 H Pulse Rhythm [Apical] Irregular Respiratory Rate 41 H 26 H 40 H Blood Pressure 234/108 H 223/134 H Blood Pressure [Left Arm] 234/108 H Blood Pressure Mean 150 163 Blood Pressure Mean [Left Arm] 150 Pulse Oximetry 97 97 97 Oxygen Delivery Method Nasal Cannula Oxygen Flow Rate 2 Sepsis Recent Fever Within 48 Hours Sepsis New/Unexplained Change in Mental Status Sepsis Action Taken by Nursing 11/15/21 10:00 11/15/21 10:30 11/15/21 11:00 Temperature Temperature Source Pulse Rate 102 H 104 H 104 H Pulse Rate [Apical] 110 H Pulse Rate from SpO2 Sensor 100 H 109 H Pulse Rhythm [Apical] Irregular Respiratory Rate 44 H 42 H 28 H Blood Pressure 252/128 H 233/156 H 199/111 H Blood Pressure [Left Arm] 199/111 H Blood Pressure Mean 169 181 140 Blood Pressure Mean [Left Arm] 140 Pulse Oximetry 98 95 Oxygen Delivery Method Room Air Oxygen Flow Rate Sepsis Recent Fever Within 48 Hours Sepsis New/Unexplained Change in Mental Status Sepsis Action Taken by Nursing 11/15/21 12:00 11/15/21 14:00 11/15/21 14:35 Temperature Temperature Source Pulse Rate 85 Pulse Rate [Apical] 105 H 93 H Pulse Rate from SpO2 Sensor Pulse Rhythm [Apical] Irregular Respiratory Rate 24 24 Blood Pressure Blood Pressure [Left Arm] 174/85 H 129/71 Blood Pressure Mean Blood Pressure Mean [Left Arm] 114 90 Pulse Oximetry 96 97 Oxygen Delivery Method Nasal Cannula Oxygen Flow Rate 2 Sepsis Recent Fever Within 48 Hours Sepsis New/Unexplained Change in Mental Status Sepsis Action Taken by Nursing VITAL SIGNS - Vital signs and nursing notes were reviewed. Hypertensive. GENERAL - 71-year-old male appearing his stated age who is in no acute distress but appears to be in pain. Communicates well with provider and answers questions appropriately. SKIN - Without rashes. HEAD - NC/AT. EYES - PERRL with EOMI bilaterally. Sclera anicteric. Palpebral conjunctiva pink and moist with no injection noted. EARS - No deformities of external structures noted on gross examination bilaterally. NOSE - Midline and without cyanosis. No epistaxis or purulent drainage noted. MOUTH/OROPHARYNX - Without perioral cyanosis. NECK - No nuchal rigidity. LUNGS - Chest wall symmetric without accessory muscle use, intercostals retractions, or central cyanosis. Normal vesicular breath sounds CTA B/L. No wheezes, rales, or rhonchi appreciated. CARDIAC - RRR with S1/S2. No murmur, rubs, or gallops appreciated. ABDOMEN - Abdominal contour normal without pulsations or visible masses. BS normoactive all four quadrants. Lower abdominal protrusion noted in the bladder region. He is tender to this area to palpation. EXTREMITIES - No clubbing or peripheral cyanosis. +5/5 strength noted in UE/LE bilaterally. PSYCH - A&O, and cooperates fully with examiner. Pt is very pleasant and inter acts well with examiner. Course Administered Medications Amiloride HCl (Amiloride Hcl 5 Mg Tab) 5 mg PO DAILY CANDICE Stop: 12/15/21 12:14 Last Admin: 11/15/21 14:35 Dose: 5 mg Documented by: [id number] Discontinued Medications Carvedilol (Carvedilol 12.5 Mg Tab) 12.5 mg PO NOW ONE Stop: 11/15/21 12:11 Last Admin: 11/15/21 12:48 Dose: 12.5 mg Documented by: [id number] Ciprofloxacin (Ciprofloxacin 500 Mg Tab) 500 mg PO NOW STA Stop: 11/15/21 11:27 Last Admin: 11/15/21 11:56 Dose: 500 mg Documented by: [id number] Digoxin (Digoxin 0.125 Mg Tab) 0.125 mg PO NOW STA Stop: 11/15/21 12:13 Last Admin: 11/15/21 14:35 Dose: 0.125 mg Documented by: [id number] Hydralazine HCl (Hydralazine Tab 50 Mg Tab) 100 mg PO NOW STA Stop: 11/15/21 12:11 Last Admin: 11/15/21 12:48 Dose: 100 mg Documented by: [id number] Ioversol (Optiray 320 100ml) 93 ml IV ONCE ONE Stop: 11/15/21 09:01 Last Admin: 11/15/21 09:00 Dose: 93 ml Documented by: [id number] Morphine Sulfate (Morphine Sulfate 4 Mg/Ml 1 Ml Carp\\Vial) 4 mg IV NOW STA Stop: 11/15/21 10:18 Last Admin: 11/15/21 10:40 Dose: 4 mg Documented by: [id number] Ondansetron HCl (Ondansetron Inj 2 Mg/Ml 2 Ml Vial) 4 mg IV NOW STA Stop: 11/15/21 10:18 Last Admin: 11/15/21 10:39 Dose: 4 mg Documented by: [id number] Medical Decision Making Laboratory Data Result diagrams: 11/15/21 08:15 11/15/21 08:15 Lab Results 11/15/21 11/15/21 11/15/21 Range/Units 08:15 08:15 08:15 WBC (4.8-10.8) K/uL RBC (4.7-6.1) M/uL Hgb (14.0-18.0) g/dL POC Hgb (14.0-18.0) g/dl Hct (42-52) % POC Hct (42-52) % MCV (80-100) fL MCH (25-34) pg MCHC (32-36) g/dL RDW Std Deviation (36.4-46.3) fL RDW Coeff of Radha (11.5-14.5) % Plt Count (130-400) K/uL MPV (7.4-10.4) fL Immature Gran % (Auto) % Neut % (Auto) % Lymph % (Auto) % [place] % (Auto) % Eos % (Auto) % Baso % (Auto) % Neut # (Auto) (1.4-6.5) K/uL Lymph # (Auto) (1.2-3.4) K/uL [place] # (Auto) (0.11-0.59) K/uL Eos # (Auto) (0-0.5) K/uL Baso # (Auto) (0-0.2) K/uL Immature Gran # (Auto) (0.00-0.02) K/uL POC Sodium (135-144) mmol/L Sodium 138 (136-145) mmol/L POC Potassium (3.3-5.0) mmol/L Potassium 3.4 L (3.5-5.1) mmol/L POC Chloride (101-112) mmol/L Chloride 102 (98-107) mmol/L Carbon Dioxide 26 (21-32) mmol/L POC Total CO2 (24-31) mmol/L Anion Gap 10 (3-11) POC Anion Gap (16-25) mmol/L POC BUN (7-18) mg/dl BUN 11 (6-23) mg/dl Creatinine 0.86 (0.6-1.4) mg/dl POC Creatinine (0.6-1.3) mg/dl Est Cr Clr Drug Dosing 103.5 ml/min Est GFR ( Amer) 101.8 ml/min Est GFR (Non-Af Amer) 87.9 ml/min BUN/Creatinine Ratio 12.8 (10-20) Glucose 154 H (70-99(Fasting)) mg/dl POC Glucose (other) (70-99) mg/dl Lactate 1.7 (0.4-2.0) mmol/L Calcium 9.3 (8.5-10.1) mg/dl POC Ioniz Calcium Gisela (1.12-1.32) mmol/l Magnesium 1.8 (1.7-2.4) mg/dl Total Bilirubin 2.0 H (0.2-1.0) mg/dl AST 13 (13-39) U/L ALT 13 (7-52) U/L Alkaline Phosphatase 150 H (34-104) U/L Total Creatine Kinase 29 L (30-223) U/L Troponin I High Sens 19.3 (0-20) pg/ml Total Protein 8.0 (6.0-8.3) gm/dl Albumin 4.0 (3.4-5.0) gm/dl Globulin 4.0 (2.5-4.0) gm/dl Albumin/Globulin Ratio 1.0 (0.9-2) Lipase 16 (11-82) U/L Procalcitonin < 0.05 (0-0.5) ng/ml Urine Color Urine Appearance (Clear) Urine pH (4.5-7.5) Ur Specific [place] (1.000-1.030) Urine Protein (Negative) Urine Glucose (UA) (Negative) Urine Ketones (Negative) Urine Blood (Negative) Urine Nitrite (Negative) Urine Bilirubin (Negative) Urine Urobilinogen (Negative) Ur Leukocyte Esterase (Negative) Urine RBC (0-4) /hpf Urine WBC (0-5) /hpf Ur Epithelial Cells (0-5) /lpf Ur Renal Epithelial Cell (0-5) /lpf Urine Bacteria (Negative) Hyaline Casts (0-5) /lpf SARS-CoV-2, RNA, NAAT (NEGATIVE) 11/15/21 11/15/21 11/15/21 Range/Units 08:15 08:19 08:40 WBC 15.74 H (4.8-10.8) K/uL RBC 5.27 (4.7-6.1) M/uL Hgb 16.8 (14.0-18.0) g/dL POC Hgb 17.3 (14.0-18.0) g/dl Hct 49.4 (42-52) % POC Hct 51 (42-52) % MCV 93.7 (80-100) fL MCH 31.9 (25-34) pg MCHC 34.0 (32-36) g/dL RDW Std Deviation 49.2 H (36.4-46.3) fL RDW Coeff of Radha 14.5 (11.5-14.5) % Plt Count 217 (130-400) K/uL MPV 10.0 (7.4-10.4) fL Immature Gran % (Auto) 0.4 % Neut % (Auto) 87.7 % Lymph % (Auto) 8.6 % [place] % (Auto) 2.9 % Eos % (Auto) 0.3 % Baso % (Auto) 0.1 % Neut # (Auto) 13.80 H (1.4-6.5) K/uL Lymph # (Auto) 1.35 (1.2-3.4) K/uL [place] # (Auto) 0.46 (0.11-0.59) K/uL Eos # (Auto) 0.04 (0-0.5) K/uL Baso # (Auto) 0.02 (0-0.2) K/uL Immature Gran # (Auto) 0.07 H (0.00-0.02) K/uL POC Sodium 141 (135-144) mmol/L Sodium (136-145) mmol/L POC Potassium 3.4 (3.3-5.0) mmol/L Potassium (3.5-5.1) mmol/L POC Chloride 101 (101-112) mmol/L Chloride (98-107) mmol/L Carbon Dioxide (21-32) mmol/L POC Total CO2 25 (24-31) mmol/L Anion Gap (3-11) POC Anion Gap 20.0 (16-25) mmol/L POC BUN 10 (7-18) mg/dl BUN (6-23) mg/dl Creatinine (0.6-1.4) mg/dl POC Creatinine 0.7 (0.6-1.3) mg/dl Est Cr Clr Drug Dosing ml/min Est GFR ( Amer) ml/min Est GFR (Non-Af Amer) ml/min BUN/Creatinine Ratio (10-20) Glucose (70-99(Fasting)) mg/dl POC Glucose (other) 164 H (70-99) mg/dl Lactate (0.4-2.0) mmol/L Calcium (8.5-10.1) mg/dl POC Ioniz Calcium Gisela 1.21 (1.12-1.32) mmol/l Magnesium (1.7-2.4) mg/dl Total Bilirubin (0.2-1.0) mg/dl AST (13-39) U/L ALT (7-52) U/L Alkaline Phosphatase (34-104) U/L Total Creatine Kinase (30-223) U/L Troponin I High Sens (0-20) pg/ml Total Protein (6.0-8.3) gm/dl Albumin (3.4-5.0) gm/dl Globulin (2.5-4.0) gm/dl Albumin/Globulin Ratio (0.9-2) Lipase (11-82) U/L Procalcitonin (0-0.5) ng/ml Urine Color Urine Appearance (Clear) Urine pH (4.5-7.5) Ur Specific [place] (1.000-1.030) Urine Protein (Negative) Urine Glucose (UA) (Negative) Urine Ketones (Negative) Urine Blood (Negative) Urine Nitrite (Negative) Urine Bilirubin (Negative) Urine Urobilinogen (Negative) Ur Leukocyte Esterase (Negative) Urine RBC (0-4) /hpf Urine WBC (0-5) /hpf Ur Epithelial Cells (0-5) /lpf Ur Renal Epithelial Cell (0-5) /lpf Urine Bacteria (Negative) Hyaline Casts (0-5) /lpf SARS-CoV-2, RNA, NAAT NEGATIVE (NEGATIVE) 05/18/22 Range/Units 11:35 WBC (4.8-10.8) K/uL RBC (4.7-6.1) M/uL Hgb (14.0-18.0) g/dL POC Hgb (14.0-18.0) g/dl Hct (42-52) % POC Hct (42-52) % MCV (80-100) fL MCH (25-34) pg MCHC (32-36) g/dL RDW Std Deviation (36.4-46.3) fL RDW Coeff of Radha (11.5-14.5) % Plt Count (130-400) K/uL MPV (7.4-10.4) fL Immature Gran % (Auto) % Neut % (Auto) % Lymph % (Auto) % [place] % (Auto) % Eos % (Auto) % Baso % (Auto) % Neut # (Auto) (1.4-6.5) K/uL Lymph # (Auto) (1.2-3.4) K/uL [place] # (Auto) (0.11-0.59) K/uL Eos # (Auto) (0-0.5) K/uL Baso # (Auto) (0-0.2) K/uL Immature Gran # (Auto) (0.00-0.02) K/uL POC Sodium (135-144) mmol/L Sodium (136-145) mmol/L POC Potassium (3.3-5.0) mmol/L Potassium (3.5-5.1) mmol/L POC Chloride (101-112) mmol/L Chloride (98-107) mmol/L Carbon Dioxide (21-32) mmol/L POC Total CO2 (24-31) mmol/L Anion Gap (3-11) POC Anion Gap (16-25) mmol/L POC BUN (7-18) mg/dl BUN (6-23) mg/dl Creatinine (0.6-1.4) mg/dl POC Creatinine (0.6-1.3) mg/dl Est Cr Clr Drug Dosing ml/min Est GFR ( Amer) ml/min Est GFR (Non-Af Amer) ml/min BUN/Creatinine Ratio (10-20) Glucose (70-99(Fasting)) mg/dl POC Glucose (other) (70-99) mg/dl Lactate (0.4-2.0) mmol/L Calcium (8.5-10.1) mg/dl POC Ioniz Calcium Gisela (1.12-1.32) mmol/l Magnesium (1.7-2.4) mg/dl Total Bilirubin (0.2-1.0) mg/dl AST (13-39) U/L ALT (7-52) U/L Alkaline Phosphatase (34-104) U/L Total Creatine Kinase (30-223) U/L Troponin I High Sens (0-20) pg/ml Total Protein (6.0-8.3) gm/dl Albumin (3.4-5.0) gm/dl Globulin (2.5-4.0) gm/dl Albumin/Globulin Ratio (0.9-2) Lipase (11-82) U/L Procalcitonin (0-0.5) ng/ml Urine Color Red Urine Appearance Turbid A (Clear) Urine pH 8.5 H (4.5-7.5) Ur Specific [place] 1.015 (1.000-1.030) Urine Protein 3+ H (Negative) Urine Glucose (UA) Negative (Negative) Urine Ketones Negative (Negative) Urine Blood 3+ H (Negative) Urine Nitrite Positive A (Negative) Urine Bilirubin Negative (Negative) Urine Urobilinogen Negative (Negative) Ur Leukocyte Esterase Trace H (Negative) Urine RBC >30 H (0-4) /hpf Urine WBC >30 H (0-5) /hpf Ur Epithelial Cells 10-20 H (0-5) /lpf Ur Renal Epithelial Cell 0-5 (0-5) /lpf Urine Bacteria 3+ H (Negative) Hyaline Casts 5-10 H (0-5) /lpf SARS-CoV-2, RNA, NAAT (NEGATIVE) Imaging Data Radiologist's Impression: Abdomen/Pelvis CT 11/15/21 08:10 CT OF THE ABDOMEN AND PELVIS WITH CONTRAST CLINICAL HISTORY: Lower abdominal pain. COMPARISON STUDY: CT of the abdomen and pelvis September 18, 2021. TECHNIQUE: Following IV administration of 93 mL of Optiray, axial images of the abdomen and pelvis were obtained from the lung bases to the proximal femurs. Images were reviewed in the axial, sagittal, and coronal planes. IV contrast was administered without complication. Automated exposure control was utilized for the study. A dose lowering technique was utilized adhering to the principles of ALARA. CT DOSE: 1378.48 mGycm FINDINGS: Small bilateral pleural effusions are noted within the lower lungs. There is cardiomegaly. Suspected mild pulmonary edema is present. This exam is compromised by motion artifact. No pneumatosis, free air or portal venous gas is present distally is mildly enlarged. No irregularity liver contour suggests cirrhosis. A few subcentimeter hypodense liver lesions are too small to characterize but are probably benign. The adrenal glands and pancreas are chanell l. There is no biliary or pancreatic ductal dilatation. There are numerous small bilateral renal calculi. There are no ureteral calculi. No bladder calculi are present. There is mild bilateral hydroureteronephrosis. Ureters are dilated to the level of the bladder. Bladder is significantly distended. There is trace gas within the bladder. Fernandez balloon within the bladder is present. Prostate is enl arged, measuring 6 cm in transverse dimension. There is mild wall thickening of the right anterior aspect of the bladder with an equivocal defect within the bladder wall. This finding is new since prior CT of September 18, 2021. There multiple small pockets of low-attenuation fluid within the space of Retzius. There is no evidence for a bowel obstruction. Caliber and wall thickness of small and large bowel are normal. Previous umbilical hernia repair with mesh is noted. There are fat-containing bilateral inguinal hernias. No acute fracture or suspicious lesion within the visualized skeletal structures. No evidence for acute appendicitis. No lymphadenopathy is present. IMPRESSION: 1. Distended bladder despite containing a Fernandez balloon. Enlarged prostate. Mild wall thickening of the right anterior aspect of the bladder is nonspecific and could be evaluated with cystoscopy. Equivocal defect within the bladder wall with multiple small pockets of low-attenuation fluid within the space of Retzius. A bladder injury would be difficult to exclude. Urology consultation is recommended. Bladder distention results in mild bilateral hydroureteronephrosis. 2. Bilateral nephrolithiasis. No ureteral calculi. 3. Suspected cirrhosis. Mild splenomegaly. 4. Small bilateral pleural effusions with interstitial pulmonary edema. ACT 112: Negative or not required by law. Electronically signed by: Arthur Ferraro M.D. 11/15/2021 10:00 AM Chest X-Ray 11/15/21 08:11 XR chest 1V portable CLINICAL HISTORY: Dyspnea. COMPARISON STUDY: Chest radiograph September 18, 2021. FINDINGS: There is no pneumothorax. Suspected small bilateral pleural effusions are present. Interstitial thickening represents pulmonary edema. Mild cardiomegaly is noted. There is no consolidation to suggest pneumonia. IMPRESSION: Interstitial pulmonary edema with small bilateral pleural effusions. ACT 112: Negative or not required by law. Electronically signed by: Arthur Ferraro M.D. 11/15/2021 9:47 AM MDM Narrative Patient was seen and evaluated as above in room C09. Review was performed of nursing notes and vital signs. I did review pertinent previous visits and patient history. After obtaining a thorough history and physical examination the above work up was performed. Patient presents to us today with lower abdominal discomfort. He is hypertensive on arrival. He is quite tender in the lower abdomen. There is some mild distention to this area. He does have a recent history of CVA. Residual right-sided deficits noted. at bedside confirms there are no new deficits. The patient denies any headache. No chest pain. No back pain. He notes his pain is only in the lower abdomen. Options of care were discussed with the patient. IV access was established. Labs were drawn. Patient was sent for stat CT scan of the abdomen and pelvis as well as chest x-ray. CT scan of the abdomen pelvis reveals distended bladder. He does have an indwelling Fernandez catheter which is not draining upon evaluation. I then consulted urology. Labs reveal leukocytosis 15.74. No anemia. On hypokalemia 3.4. No evidence of kidney or liver failure. Glucose 154. T bili 2.0. Alk phos elevated 150. Total CK not elevated. Troponin normal. Pro-Cosme within normal range. COVID testing negative. 0932: I spoke with KYLE Langston with urology. 0939: I received a phone call from KYLE Langston with urology. Plan was to change out his Fernandez catheter with an exact replacement here in the emergency department. I also discussed this with patient and at bedside. 0955: Radiology, Dr. Ferraro called. There is concern for possible bladder injury. I then went to bedside and at this point the RN had NOT attempted Fernandez catheter placement. We will hold off at this time pending repeat discussion with urology noting these new findings. 10:00: I discussed this again with urology. 10:04: Urology called back, I spoke with KYLE Langston. She will come to bedside to place the Fernandez. Urology then came to bedside and they were able to successfully place Fernandez catheter. Patient was feeling tremendously better. He did miss his morning dose of medications. I suspect much of his continued hypertensive state is secondary to not having any of his morning meds. I did order a few of his morning medicines that were pertinent to his blood pressure. I did confirm with the patient's at bedside the correct medications. I also reviewed his list extensively. Patient tolerated these medications without issue. The patient continued to be fatigued here which I suspect is secondary to not sleeping well because of the abdominal pain. I do believe that further evaluation and management is warranted in the inpatient setting to trend the patient's clinical state. Case discussed with the hospitalist. Please refer to further documentation regarding his stay. Case was discussed with the attending physician. GCS: 15 In the evaluation and treatment of this patient the following differential diagnoses were entertained: UTI, pyelonephritis, CVA, TIA, hypertensive e mergency, hypertensive urgency, bowel obstruction, among others. Impression & Plan Urinary retention, Acute bilateral lower abdominal pain Discharge Plan Visit Data Chief Complaint: Abdominal Pain Stated Complaint: lower abdominal pain ED Provider: Patrice Parr ED Midlevel Provider: Siva Conrad Discharge Problem: Urinary retention, Acute bilateral lower abdominal pain Patient Disposition: Admitted As Inpatient Condition: Good Discharge Instructions Interventions: ED Discharge Assessment Last Done: 11/15/21 16:37
[2021-11-15 08:31] LABS: iSTAT Creatinine 0.7 mg/dl (0.6-1.3); iSTAT Hemoglobin 17.3 g/dl (14.0-18.0); iSTAT Ionized Calcium 1.21 mmol/l (1.12-1.32); iSTAT Potassium 3.4 mmol/L (3.3-5.0)
[2021-11-15 08:36] LABS: Basophils # (auto) 0.02 K/uL (0-0.2); Basophils % (auto) 0.1 %; Eosinophils # (auto) 0.04 K/uL (0-0.5); Eosinophils % (auto) 0.3 %; Hematocrit (blood only) 49.4 % (42-52); Hemoglobin 16.8 g/dL (14.0-18.0); Immature Granulocytes # (auto) 0.07 K/uL (0.00-0.02); Immature Granulocytes % (auto) 0.4 %; Lymphocytes # (auto) 1.35 K/uL (1.2-3.4); Lymphocytes % (auto) 8.6 %; Mean Corpuscular Hemoglobin 31.9 pg (25-34); Mean Corpuscular Volume 93.7 fL (80-100); Monocytes # (auto) 0.46 K/uL (0.11-0.59); Monocytes % (auto) 2.9 %; Neutrophils % (auto) 87.7 %; Platelet Count 217 K/uL (130-400); RDW Coefficient of Variation 14.5 % (11.5-14.5); RDW Standard Deviation 49.2 fL (36.4-46.3); Red Blood Count 5.27 M/uL (4.7-6.1); White Blood Count 15.74 K/uL (4.8-10.8)
[2021-11-15] MEDS ORDERED: OPTIRAY 320 100ml IV ONE (09:00)
[2021-11-15 09:01] LABS: BUN Creatinine Ratio 12.8 (10-20); Calcium 9.3 mg/dl (8.5-10.1); Creatinine Clr Calc Pharmacy 103.5 ml/min; Est GFR (African American) 101.8 ml/min; Est GFR (Non-African American) 87.9 ml/min; Magnesium 1.8 mg/dl (1.7-2.4); Potassium 3.4 mmol/L (3.5-5.1)
[2021-11-15 09:06] LABS: Troponin I High Sensitivity 19.3 pg/ml (0-20)
--- NOTE | 2021-11-15 09:48 | XRay Report ---
XR chest 1V portable CLINICAL HISTORY: Dyspnea. COMPARISON STUDY: Chest radiograph September 18, 2021. FINDINGS: There is no pneumothorax. Suspected small bilateral pleural effusions are present. Intersti tial thickening represents pulmonary edema. Mild cardiomegaly is noted. There is no consolidation to suggest pneumonia. IMPRESSION: Interstitial pulmonary edema with small bilateral pleural effusions. ACT 112: Negative or not required by law. Electronically signed by: Arthur Ferraro M.D. 11/15/2021 9:47 AM
--- NOTE | 2021-11-15 10:01 | CT Scan Report ---
CT OF THE ABDOMEN AND PELVIS WITH CONTRAST CLINICAL HISTORY: Lower abdominal pain. COMPARISON STUDY: CT of the abdomen and pelvis September 18, 2021. TECHNIQUE: Following IV administration of 93 mL of Optiray, axial images of the abdomen and pelvis we re obtained from the lung bases to the proximal femurs. Images were reviewed in the axial, sagittal, and coronal planes. IV contrast was administered without complication. Automated exposure control wa s utilized for the study. A dose lowering technique was utilized adhering to the principles of ALARA . CT DOSE: 1378.48 mGycm FINDINGS: Small bilateral pleural effusions are noted within the lower lungs. There is cardiomegaly. Suspected mild pulmonary edema is present. This exam is compromised by motion artifact. No pneumatosi s, free air or portal venous gas is present distally is mildly enlarged. No irregularity liver contou r suggests cirrhosis. A few subcentimeter hypodense liver lesions are too small to characterize but a re probably benign. The adrenal glands and pancreas are normal. There is no biliary or pancreatic fredy selvin dilatation. There are numerous small bilateral renal calculi. There are no ureteral calculi. No b ladder calculi are present. There is mild bilateral hydroureteronephrosis. Ureters are dilated to the level of the bladder. Bladder is significantly distended. There is trace gas within the bladder. Fol ey balloon within the bladder is present. Prostate is enlarged, measuring 6 cm in transverse dimensio n. There is mild wall thickening of the right anterior aspect of the bladder with an equivocal defect within the bladder wall. This finding is new since prior CT of September 18, 2021. There multiple small pockets of low-attenuation fluid within the space of Retzius. There is no evidence for a bowel obstru ction. Caliber and wall thickness of small and large bowel are normal. Previous umbilical hernia repa ir with mesh is noted. There are fat-containing bilateral inguinal hernias. No acute fracture or susp icious lesion within the visualized skeletal structures. No evidence for acute appendicitis. No lymph adenopathy is present. IMPRESSION: 1. Distended bladder despite containing a Fernandez balloon. Enlarged prostate. Mild wall thickening of t he right anterior aspect of the bladder is nonspecific and could be evaluated with cystoscopy. Equivo lacey defect within the bladder wall with multiple small pockets of low-attenuation fluid within the sp kalani of Retzius. A bladder injury would be difficult to exclude. Urology consultation is recommended. Bladder distention results in mild bilateral hydroureteronephrosis. 2. Bilateral nephrolithiasis. No ureteral calculi. 3. Suspected cirrhosis. Mild splenomegaly. 4. Small bilateral pleural effusions with interstitial pulmonary edema. ACT 112: Negative or not required by law. Electronically signed by: Arthur Ferraro M.D. 11/15/2021 10:00 AM
[2021-11-15] MEDS ORDERED: LIDOCAINE 2% JELLY 5 ML TUBE ONE (10:08)
[2021-11-15] MEDS ORDERED: MoRPHine SULFATE 4 MG/ML 1 ML CARP\\VIAL IV STA (10:17)
[2021-11-15] MEDS ORDERED: ONDANSETRON INJ 2 MG/ML 2 ML VIAL IV STA (10:17)
[2021-11-15] MEDS ORDERED: CIPROFLOXACIN 500 MG TAB PO STA (11:26)
[2021-11-15] MEDS ORDERED: hydrALAZINE TAB 50 MG TAB PO STA (12:10)
[2021-11-15] MEDS ORDERED: carvediloL 12.5 MG TAB PO ONE (12:10)
[2021-11-15] MEDS ORDERED: DIGOXIN 0.125 MG TAB PO STA (12:12)
[2021-11-15] MEDS ORDERED: aMILoride HCL 5 MG TAB PO SCH (12:15)
[2021-11-15 12:25] LABS: Appearance Urine Turbid (Clear); Bilirubin Urine Negative (Negative); Blood Urine 3+ (Negative); Color Urine Red; Glucose Urine UA Negative (Negative); Ketones Urine Negative (Negative); Leukocyte Esterase Urine Trace (Negative); Nitrite Urine Positive (Negative); Protein Urine 3+ (Negative); Specific Gravity Urine 1.015 (1.000-1.030); Urobilinogen Urine Negative (Negative); pH Urine 8.5 (4.5-7.5)
[2021-11-15 12:44] LABS: Bacteria Urine 3+ (Negative); RBC Urine >30 /hpf (0-4); Renal Epithelial Cells Urine 0-5 /lpf (0-5); WBC Urine >30 /hpf (0-5)
--- NOTE | 2021-11-15 12:48 | Urology Consultation ---
Date of Consultation November 15, 2021 Assessment & Plan (1) Urinary retention: 71yo M with a complicated urological history who presented to the ED with c/o lower abdominal pain. Also noted darker than normal urine and decreased output from indwelling devries catheter. A CTAP was obtained and notable for a distended bladder noted despite Devries catheter, Nonspecific mild wall thickening of the right anterior aspect of the bladder, Equivocal defect within the bladder wall with multiple small pockets of low-attenuation fluid within the space of Retzius concerning for possible bladder injury. - Plan of care and imaging reviewed with Dr. James. - Urology consulted due to the catheter not draining and also concern for possible bladder perforation. - Attempted replacement of 16Fr Devries catheter at bedside, however this was unsuccessful. - Pt afebrile, hypertensive, tachycardic. - Labs reviewed - Wbc 15.74, Creatinine 0.86. - See attending note for additional details. Supervising Physician Co-Signing Physician Notes Reviewed patient's CT scan. No obvious signs of perforation. I saw the patient personally and placed a catheter. Procedure note: Patient was prepped in a sterile fashion. A 5fr open ended cathetered was advanced to the level of resistance, which was likey in the bulbar urethra or at the bladder neck. I advanced a sensor wire through the 5fr and patient felt as if wire was in bladder. I advanced the 5fr over the wire into the bladder and then removed the wire. Urine drained from the 5fr, confirming appropriate position in the bladder. I then advanced the sensor wire back into the bladder and removed the 5fr over the wire. I then advanced a 16fr lumbee tip catheter over the wire into the bladder. The wire was removed and maroon urine drained out. Balloon was inflated with 10cc of water and set to gravity drainage. Recommend monitoring patient in ED to ensure hypertension and abdominal pain resolve. Send urine for culture and give a prophylactic dose of antibiotics such as bactrim or ceftriaxone. If urine remains clear and patient feels better, stable for discharge home from a urologic standpoint. Urology will schedule catheter exchange in one month. History of Present Illness Reason for Consultation: Urinary retention History of Present Illness 71yo M with a complicated past urologic historyincluding hypospadias, urethroplasty, nephrolithiasis, mixed urinary incontinence, ED and a history of urethral stricture who presented to the ED today with c/o lower abdominal pain and reports that his indwelling Devries catheter has been producing darker urine than usual. He is well known to the urology service, follows with Dr. James. He recently suffered a cerebellar hemorrhage managed in [place] and had a Devries catheter placed due to retention. He was seen in the urology office 1 week ago for a voiding trial, however he unfortunately did not pass and required replacement of the Devries catheter. He notes the catheter was draining darker urine than usual since replacement. The lower abdominal pain began yesterday a nd patient/ noticed decreased urine output from catheter this morning. On arrival to ED, he was hypertensive and tachycardic. Lower abdominal tenderness and distention were noted. He was Afebrile. Labs revealed leukocytosis of 15.74 and creatinine 0.86. A CT abdomen pelvis was obtained and noted a distended bladder. Urology consulted due to the catheter not draining and also concern for possible bladder perforation. CT abdomen pelvis - 1. Distended bladder despite containing a Devries balloon. Enlarged prostate. Mild wall thickening of the right anterior aspect of the bladder is nonspecific and could be evaluated with cystoscopy. Equivocal defect within the bladder wall with multiple small pockets of low-attenuation fluid within the space of Retzius. A bladder injury would be difficult to exclude. Urology consultation is recommended. Bladder distention results in mild bilateral hydroureteronephrosis. 2. Bilateral nephrolithiasis. No ureteral calculi. 3. Suspected cirrhosis. Mild splenomegaly. 4. Small bilateral pleural effusions with interstitial pulmonary edema. Pt examined at bedside in ED. Awake, resting in bed on arrival. at bedside. Appears quite uncomfortable. Still with severe lower abdominal pain and distention. The Devries catheter has since been removed by nursing. Notes he has been leaking urine. RN had not attempted Devries catheter replacement given the concern for bladder injury as well as his hx of urethroplasty. Attempted replacement of 16Fr Devries catheter at bedside using sterile technique, however this was unsuccessful. Allergies Allergy/AdvReac Type Severity Reaction Status Date / Time amlodipine Allergy Severe LE Verified 11/15/21 12:34 swelling and calves got "rock hard" Ipxyioe-EUB-WzJ Reductase Allergy Intermediate leg pains Verified 11/15/21 12:34 Inhibitor [Vmsgkqf-Scx-Rrb Reductase Inhibitor] amoxicillin Allergy Mild RASH Verified 11/15/21 12:34 chlorhexidine Allergy Mild RASH, SKIN Verified 11/15/21 12:34 TURNED RED AND PEELED Penicillins Allergy Mild RASH Verified 11/15/21 12:34 Home Medications Medication Instructions Recorded Confirmed Type amiloride 5 mg tablet 10 mg PO DAILY 08/23/18 11/15/21 History digoxin 125 mcg (0.125 mg) tablet 125 mcg PO DAILY 08/23/18 11/15/21 History finasteride 5 mg tablet 5 mg PO HS 08/23/18 11/15/21 History levothyroxine 75 mcg tablet 75 mcg PO Q OTHER DAY 08/23/18 11/15/21 History losartan 100 mg tablet 100 mg PO DAILY 08/23/18 11/15/21 History metformin 500 mg tablet 500 mg PO QAM 08/23/18 11/15/21 History cyanocobalamin (vitamin B-12) 1,000 mcg PO QAM 09/18/19 11/15/21 History 1,000 mcg tablet magnesium hydroxide 400 mg/5 mL 15 ml PO DAILY PRN 12/18/19 11/15/21 History oral suspension (Milk of Magnesia) evolocumab 140 mg/mL subcutaneous 140 mg SUBCUT Q14D 09/18/21 11/15/21 History pen injector (Repatha SureClick) furosemide 20 mg tablet 20 mg PO .MOTUWE& QOD PRN 09/18/21 11/15/21 History levothyroxine 100 mcg tablet 100 mcg PO Q OTHER DAY 09/18/21 11/15/21 History apixaban 5 mg tablet (Eliquis) 5 mg PO BID 11/15/21 11/15/21 History carvedilol 12.5 mg tablet 12.5 mg PO BID 11/15/21 11/15/21 History docusate sodium 100 mg tablet 100 mg PO BID 11/15/21 11/15/21 History evolocumab 140 mg/mL subcutaneous 140 mg SUBCUT .EVERY OTHER WEEK 11/15/21 11/15/21 History pen injector (Repatha SureClick) fluticasone propionate 50 2 spray INTRANASAL BID PRN 11/15/21 11/15/21 History mcg/actuation nasal spray,suspension (Flonase Allergy Relief) hydralazine 100 mg tablet 100 mg PO Q8 11/15/21 11/15/21 History isosorbide mononitrate 120 mg 120 mg PO QAM 11/15/21 11/15/21 History tablet,extended release 24 hr loratadine 10 mg tablet 10 mg PO DAILY 11/15/21 11/15/21 History sodium chloride 0.65 % nasal spray 2 spray INTRANASAL DIRECTED 11/15/21 11/15/21 History aerosol terazosin 5 mg capsule 10 mg PO HS 11/15/21 11/15/21 History Patient History Medical History Atrial fibrillation Chronic; on eliquis BPH (benign prostatic hyperplasia) Chronic rhinitis Cirrhosis of liver NON ETOH History of colon polyps History of kidney stones History of recurrent UTI (urinary tract infection) History of urethral stricture HLD (hyperlipidemia) HTN (hypertension) Hx of intracranial hemorrhage Hypospadias Hypothyroidism Metabolic syndrome metformin Nephrolithiasis Neuropathy BLE ARNDALL (obstructive sleep apnea) USES BIPAP Osteoarthritis Prediabetes UTI (urinary tract infection) Surgical History H/O sinus surgery History of cardiac cath 2000 NO STENTS History of cystoscopy History of esophagogastroduodenoscopy (EGD) History of hernia repair "umbilical hernia repair performed by Dr. Abrams 11/2014" History of kidney surgery 2007 URETHRAL PLASTY (GRAFT FROM [place]) TEMPORARY SUPERPUBIC CATHETER (REMOVED) History of kidney surgery removal of transurethreal obstruction History of lithotripsy History of sinus surgery History of tonsillectomy and adenoidectomy History of tooth extraction Family History Father Lymphoma Myocardial infarction Mother Pancreatic cancer T2DM (type 2 diabetes mellitus) Other No family history of adverse response to anesthesia Social History Smoking Status: Never smoker Second Hand Exposure: No; Hx Alcohol Use: No Hx Substance Use: No Preferred Language: Thai Communication Ability: Effective Storage Consultant Required: No Beliefs That Will Affect Care: Hinduism Hinduism Beliefs: "Islam" marital status: Current Living Situation: Spouse Feels Safe at Home: Yes Assistive Devices: Oxygen - Continuous Review of Systems Review of Systems: All systems reviewed & are unremarkable except as noted in HPI & below Physical Exam Constitutional: + uncomfortable Neck: normal visual inspection Respiratory: no respiratory distress and no labored breathing Gastrointestinal (Abdomen): Lower abdomen tender, distended. Musculoskeletal: Head/Neck/Chest: normocephalic Skin: Warm and dry Neurologic: moves all extremities and awake Psychiatric: Orientation: alert, oriented x 3 and cooperative Genitourinary: + hypospadias Results & Data ([facility]) Vital Signs (Past 12 Hours) Vital Signs Temp Pulse Pulse Resp BP BP Pulse Ox 11/15/21 12:00 105 H 24 174/85 H 96 11/15/21 11:00 104 H 110 H 28 H 199/111 H 199/111 H 95 11/15/21 10:30 104 H 42 H 233/156 H 11/15/21 10:00 102 H 44 H 252/128 H 98 11/15/21 09:30 108 H 40 H 223/134 H 97 11/15/21 09:07 101 H 26 H 234/108 H 97 11/15/21 09:04 109 H 41 H 234/108 H 97 11/15/21 09:02 90 11/15/21 08:41 114 H 44 H 224/140 H 95 11/15/21 08:30 106 H 46 H 94 11/15/21 08:09 104 H 25 H 93 11/15/21 08:08 36.8 C 110 H 28 H 245/129 H 93 PG Care Time/CCT Total # of Minutes Spent Total Time Spent with Patient: Total time spent is greater than 50% in coordination of care (as documented) at patient's floor/unit and/or counseling patient: Coding Level of Care Code 86638 Initial Inpt Care Lvl 2 Diagnoses Urinary retention R33.9
--- NOTE | 2021-11-15 14:55 | Electrocardiogram Report ---
Test Reason : Blood Pressure : / mmHG Vent. Rate : 104 BPM Atrial Rate : 120 BPM P-R Int : 000 ms QRS Dur : 092 ms QT Int : 342 ms P-R-T Axes : 000 -01 154 degrees QTc Int : 449 ms Atrial fibrillation with rapid ventricular response Abnormal ECG When compared with ECG of 19-SEP-2021 05:54, T wave inversion less evident in Anterolateral leads Confirmed by Benedict Hucthinson ([id number]) on 11/15/2021 2:54:56 PM Referred By: Confirmed By:Anton Hutchinson
--- NOTE | 2021-11-15 16:08 | History & Physical Report ---
Date of Service November 15, 2021 Assessment & Plan (1) Acute bilateral lower abdominal pain: (2) Urinary retention: (3) Hx of intracranial hemorrhage: (4) Hematuria: Plan: This is a 71M who has a significant PMH of recent ICH 08/2021 with RHP, chronic afib now back on anticoagulation with eliquis, HTN, HLD hypothyroidism, T2DM, RANDALL, obesity, chronic urinary retention 2/2 hypospadias and stricture s/p surgical repair who presents to ED 2/2 abdominal pain that started at 4 a.m. Acute bilateral lower abdominal pain - 2/2 to urinary retention Urinary retention despite Devries catheter History of hypospadias and stricture status postsurgical repair Gross hematuria 2/2 to traumatic cath Admit to med telemetry CT a/p: Distended bladder despite containing a Devries balloon. Enlarged prostate. Mild wall thickening of the right anterior aspect of the bladder is nonspecific and could be evaluated with cystoscopy. Equivocal defect within the bladder wall with multiple small pockets of low-attenuation fluid within the space of Retzius. A bladder injury would be difficult to exclude. Urology consultation is recommended. Bladder distention results in mild bilateral hydroureteronephrosis. Case was discussed with urology who has seen and evaluated patient Urology removed and eventually replaced Devries catheter on second attempt Now patient with hematuria, likely secondary to trauma and difficult catheterization Urology does not feel bladder injury likely Admitting for pain management as well as possible bladder irrigation in setting of hematuria Hold Eliquis for now, last dose 11/14 and evening Urology to re eval pt this evening due to continued suprapubic tenderness Abnormal UA Possible UTI pt with wbc 15k and abnormal UA in setting of chronic devries empirically tx with IV rocephin, await urine culture and blood culture Hypokalemia replete with 10meq KCL x 2 monitor Hx of ICH 08/2021 with residual RHP 2/2 to hypertensive emergency now back on anticoagulation for chronic afib previously had been on warfarin Chronic atrial fibrillation Continue digoxin and carvedilol Apixaban on hold due to hematuria Hypertension Continue amiloride, carvedilol, hydralazine, Imdur, losartan Monitor closely Lasix on hold T2DM a1c 6.5 novolog per protocol RANDALL bipap at HS DVT ppx: SCD/TEDS Dispo: med tele for close BP monitoring, if BP stays stable can transfer to medical FULL CODE PCP: Christal Pt was seen and examined in collaboration with Dr. Oliveira, please see addendum History of Present Illness Chief Complaint: Abdominal pain x 4 hours. Primary Care Provider: Danilo Siegel MD This is a 71M who has a significant PMH of recent ICH 08/2021 with RHP, chronic afib now back on anticoagulation with eliquis, HTN, HLD hypothyroidism, T2DM, RANDALL, obesity, chronic urinary retention and hypospadias and stricture s/p surgical repair who presents to ED 2/2 abdominal pain that started at 4 a.m. Pain is located in suprapubic region. Also associated with distension and nausea. at bedside states devries was placed during hospitalization with intracranial hemorrhage due to incontinence. He has been following up with urology as outpatient. He had Devries catheter exchanged on 11/07/2021. According to at bedside they did have difficulty inserting Devries during the visit and it was very painful for patient. He did have noticeable hematuria since insertion that had since resolved. He has otherwise been doing quite well since hospitalization with hemorrhagic CVA. Of significance he was hospitalized 09/19 to 09/29/[address] [facility] where he was transferred due to intraparenchymal hemorrhage. He did have repeat CAT scan on 10/25/2021 which revealed evolution of the right cerebellar hemorrhage and mild notable mass-effect with effacement of fourth ventricle and mild global volume loss. He was seen evaluated by ca rdiology did reinitiate anticoagulation due to chronic atrial fibrillation. at bedside feels he started Eliquis approximately on 11/05 or . She feels like he is at baseline in regards to his recent CVA. He does have right hemiplegia and she has been taking care of him. He does not have any difficulty swallowing or dysphagia. He does have mild difficulty with speech, but this is at baseline as well. In ED patient was significantly hypertensive and tachycardic on arrival. He did not take any of his home medications this morning including his Eliquis. He had Devries catheter in place which according to was draining apple juice colored urine. Ct a/p revealed Distended bladder despite containing a Devries balloon. Enlarged prostate. Mild wall thickening of the right anterior aspect of the bladder is nonspecific and could be evaluated with cystoscopy. Equivocal defect within the bladder wall with multiple small pockets of low-attenuation fluid within the space of Retzius. A bladder injury would be difficult to exclude. Urology consultation is recommended. Bladder distention results in mild bilateral hydroureteronephrosis. Urology was consulted to come remove and replace Devries. Initial attempt was unsuccessful. Dr. James then attempted and did successfully place a Devries catheter with guidewire. Since then patient has had hematuria and ER nurse has had to irrigate bladder. Despite Devries catheter placement he continues to have significant abdominal pain. Prior to presenting to ER patient's denies any noted fever, chills, sweats, lightheadedness, dizziness, chest pain, shortness of breath, URI symptoms, nausea, vomiting, or diarrhea. Allergies Allergy/AdvReac Type Severity Reaction Status Date / Time amlodipine Allergy Severe LE Verified 11/15/21 12:34 swelling and calves got "rock hard" Lpwjaib-CPY-FyE Reductase Allergy Intermediate leg pains Verified 11/15/21 12:34 Inhibitor [Pcrycze-Uyq-Rec Reductase Inhibitor] amoxicillin Allergy Mild RASH Verified 11/15/21 12:34 chlorhexidine Allergy Mild RASH, SKIN Verified 11/15/21 12:34 TURNED RED AND PEELED Penicillins Allergy Mild RASH Verified 11/15/21 12:34 Home Medications Medication Instructions Recorded Confirmed Type amiloride 5 mg tablet 10 mg PO DAILY 08/23/18 11/15/21 History digoxin 125 mcg (0.125 mg) tablet 125 mcg PO DAILY 08/23/18 11/15/21 History finasteride 5 mg tablet 5 mg PO HS 08/23/18 11/15/21 History levothyroxine 75 mcg tablet 75 mcg PO Q OTHER DAY 08/23/18 11/15/21 History losartan 100 mg tablet 100 mg PO DAILY 08/23/18 11/15/21 History metformin 500 mg tablet 500 mg PO QAM 08/23/18 11/15/21 History cyanocobalamin (vitamin B-12) 1,000 mcg PO QAM 09/18/19 11/15/21 History 1,000 mcg tablet magnesium hydroxide 400 mg/5 mL 15 ml PO DAILY PRN 12/18/19 11/15/21 History oral suspension (Milk of Magnesia) evolocumab 140 mg/mL subcutaneous 140 mg SUBCUT Q14D 09/18/21 11/15/21 History pen injector (Repatha SureClick) furosemide 20 mg tablet 20 mg PO .MOTUWE& QOD PRN 09/18/21 11/15/21 History levothyroxine 100 mcg tablet 100 mcg PO Q OTHER DAY 09/18/21 11/15/21 History apixaban 5 mg tablet (Eliquis) 5 mg PO BID 11/15/21 11/15/21 History carvedilol 12.5 mg tablet 12.5 mg PO BID 11/15/21 11/15/21 History docusate sodium 100 mg tablet 100 mg PO BID 11/15/21 11/15/21 History evolocumab 140 mg/mL subcutaneous 140 mg SUBCUT .EVERY OTHER WEEK 11/15/21 11/15/21 History pen injector (Repatha SureClick) fluticasone propionate 50 2 spray INTRANASAL BID PRN 11/15/21 11/15/21 History mcg/actuation nasal spray,suspension (Flonase Allergy Relief) hydralazine 100 mg tablet 100 mg PO Q8 11/15/21 11/15/21 History isosorbide mononitrate 120 mg 120 mg PO QAM 11/15/21 11/15/21 History tablet,extended release 24 hr loratadine 10 mg tablet 10 mg PO DAILY 11/15/21 11/15/21 History sodium chloride 0.65 % nasal spray 2 spray INTRANASAL DIRECTED 11/15/21 11/15/21 History aerosol terazosin 5 mg capsule 10 mg PO HS 11/15/21 11/15/21 History Past Med/Surg History Medical History Atrial fibrillation Chronic; on eliquis BPH (benign prostatic hyperplasia) Chronic rhinitis Cirrhosis of liver NON ETOH History of colon polyps History of kidney stones History of recurrent UTI (urinary tract infection) History of urethral stricture HLD (hyperlipidemia) HTN (hypertension) Hx of intracranial hemorrhage Hypospadias Hypothyroidism Metabolic syndrome metformin Nephrolithiasis Neuropathy BLE RANDALL (obstructive sleep apnea) USES BIPAP Osteoarthritis Prediabetes UTI (urinary tract infection) Surgical History H/O sinus surgery History of cardiac cath 2000 NO STENTS History of cystoscopy History of esophagogastroduodenoscopy (EGD) History of hernia repair "umbilical hernia repair performed by Dr. Abrams 11/2014" History of kidney surgery 2007 URETHRAL PLASTY (GRAFT FROM [place]) TEMPORARY SUPERPUBIC CATHETER (REMOVED) History of kidney surgery removal of transurethreal obstruction History of lithotripsy History of sinus surgery History of tonsillectomy and adenoidectomy History of tooth extraction Family History Father Lymphoma Myocardial infarction Mother Pancreatic cancer T2DM (type 2 diabetes mellitus) Other No family history of adverse response to anesthesia Social History Smoking Status: Never smoker Second Hand Exposure: No; Hx Alcohol Use: No Hx Substance Use: No Preferred Language: Guamanian Communication Ability: Effective Personal Shopper Required: No Beliefs That Will Affect Care: Synagogue Synagogue Beliefs: "Adventist" marital status: Current Living Situation: Spouse Feels Safe at Home: Yes Assistive Devices: Oxygen - Continuous Review of Systems Review of Systems: All systems reviewed & are unremarkable except as noted in HPI & below Physical Exam Physical Exam: please refer to Dr. Oliveira addendum for physical exam findings Results & Data Results & Data ([facility]) Vital Signs (Past 12 Hours) Vital Signs Temp Pulse Pulse Resp BP BP Pulse Ox 11/15/21 14:35 85 11/15/21 14:00 93 H 24 129/71 97 11/15/21 12:00 105 H 24 174/85 H 96 11/15/21 11:00 104 H 110 H 28 H 199/111 H 199/111 H 95 11/15/21 10:30 104 H 42 H 233/156 H 11/15/21 10:00 102 H 44 H 252/128 H 98 11/15/21 09:30 108 H 40 H 223/134 H 97 11/15/21 09:07 101 H 26 H 234/108 H 97 11/15/21 09:04 109 H 41 H 234/108 H 97 11/15/21 09:02 90 11/15/21 08:41 114 H 44 H 224/140 H 95 11/15/21 08:30 106 H 46 H 94 11/15/21 08:09 104 H 25 H 93 11/15/21 08:08 36.8 C 110 H 28 H 245/129 H 93 Diagnostic Findings Abdomen/Pelvis CT 11/15/21 08:10 CT OF THE ABDOMEN AND PELVIS WITH CONTRAST CLINICAL HISTORY: Lower abdominal pain. COMPARISON STUDY: CT of the abdomen and pelvis September 18, 2021. TECHNIQUE: Following IV administration of 93 mL of Optiray, axial images of the abdomen and pelvis were obtained from the lung bases to the proximal femurs. Images were reviewed in the axial, sagittal, and coronal planes. IV contrast was administered without complication. Automated exposure control was utilized for the study. A dose lowering technique was utilized adhering to the principles of ALARA. CT DOSE: 1378.48 mGycm FINDINGS: Small bilateral pleural effusions are noted within the lower lungs. There is cardiomegaly. Suspected mild pulmonary edema is present. This exam is compromised by motion artifact. No pneumatosis, free air or portal venous gas is present distally is mildly enlarged. No irregularity liver contour suggests cirrhosis. A few subcentimeter hypodense liver lesions are too small to characterize but are probably benign. The adrenal glands and pancreas are normal. There is no biliary or pancreatic ductal dilatation. There are numerous small bilateral renal calculi. There are no ureteral calculi. No bladder calculi are present. There is mild bilateral hydroureteronephrosis. Ureters are dilated to the level of the bladder. Bladder is significantly distended. There is trace gas within the bladder. Devries balloon within the bladder is present. Prostate is enlarged, measuring 6 cm in transverse dimension. There is mild wall thickening of the right anterior aspect of the bladder with an equivocal defect within the bladder wall. This finding is new since prior CT of September 18, 2021. There multiple small pockets of low-attenuation fluid within the space of Retzius. There is no evidence for a bowel obstruction. Caliber and wall thickness of sma ll and large bowel are normal. Previous umbilical hernia repair with mesh is noted. There are fat-containing bilateral inguinal hernias. No acute fracture or suspicious lesion within the visualized skeletal structures. No evidence for acute appendicitis. No lymphadenopathy is present. IMPRESSION: 1. Distended bladder despite containing a Devries balloon. Enlarged prostate. Mild wall thickening of the right anterior aspect of the bladder is nonspecific and could be evaluated with cystoscopy. Equivocal defect within the bladder wall with multiple small pockets of low-attenuation fluid within the space of Retzius. A bladder injury would be difficult to exclude. Urology consultation is recommended. Bladder distention results in mild bilateral hydroureteronephrosis. 2. Bilateral nephrolithiasis. No ureteral calculi. 3. Suspected cirrhosis. Mild splenomegaly. 4. Small bilateral pleural effusions with interstitial pulmonary edema. ACT 112: Negative or not required by law. Electronically signed by: Arthur Ferraro M.D. 11/15/2021 10:00 AM Chest X-Ray 11/15/21 08:11 XR chest 1V portable CLINICAL HISTORY: Dyspnea. COMPARISON STUDY: Chest radiograph September 18, 2021. FINDINGS: There is no pneumothorax. Suspected small bilateral pleural effusions are present. Interstitial thickening represents pulmonary edema. Mild cardiomegaly is noted. There is no consolidation to suggest pneumonia. IMPRESSION: Interstitial pulmonary edema with small bilateral pleural effusions. ACT 112: Negative or not required by law. Electronically signed by: Arthur Ferraro M.D. 11/15/2021 9:47 AM Medications Administered Medication List Amiloride HCl (Amiloride Hcl 5 Mg Tab) 5 mg PO DAILY CANDICE Stop: 12/15/21 12:14 Last Admin: 11/15/21 14:35 Dose: 5 mg Documented by: [id number] Discontinued Medications Carvedilol (Carvedilol 12.5 Mg Tab) 12.5 mg PO NOW ONE Stop: 11/15/21 12:11 Last Admin: 11/15/21 12:48 Dose: 12.5 mg Documented by: [id number] Ciprofloxacin (Ciprofloxacin 500 Mg Tab) 500 mg PO NOW STA Stop: 11/15/21 11:27 Last Admin: 11/15/21 11:56 Dose: 500 mg Documented by: [id number] Digoxin (Digoxin 0.125 Mg Tab) 0.125 mg PO NOW STA Stop: 11/15/21 12:13 Last Admin: 11/15/21 14:35 Dose: 0.125 mg Documented by: [id number] Hydralazine HCl (Hydralazine Tab 50 Mg Tab) 100 mg PO NOW STA Stop: 11/15/21 12:11 Last Admin: 11/15/21 12:48 Dose: 100 mg Documented by: [id number] Ioversol (Optiray 320 100ml) 93 ml IV ONCE ONE Stop: 11/15/21 09:01 Last Admin: 11/15/21 09:00 Dose: 93 ml Documented by: [id number] Morphine Sulfate (Morphine Sulfate 4 Mg/Ml 1 Ml Carp\\Vial) 4 mg IV NOW STA Stop: 11/15/21 10:18 Last Admin: 11/15/21 10:40 Dose: 4 mg Documented by: [id number] Ondansetron HCl (Ondansetron Inj 2 Mg/Ml 2 Ml Vial) 4 mg IV NOW STA Stop: 11/15/21 10:18 Last Admin: 11/15/21 10:39 Dose: 4 mg Documented by: [id number] ECG Rate (beats per minute): 104 Rhythm: atrial fibrillation Findings: + T-wave inversion Additional Comments: anterolateral t wave inversions less evident COVID-19 Results Results COVID-19 Adm Lab Results: RBC 5.27 M/uL (4.7-6.1) 11/15/21 WBC 15.74 K/uL (4.8-10.8) H 11/15/21 Hgb 16.8 g/dL (14.0-18.0) 11/15/21 Hct 49.4 % (42-52) 11/15/21 Plt Count 217 K/uL (130-400) 11/15/21 Neutrophils (%) (Auto) 87.7 % 11/15/21 Lymphocytes (%) (Auto) 8.6 % 11/15/21 Monocytes # (Auto) 0.46 K/uL (0.11-0.59) 11/15/21 Eosinophils # (Auto) 0.04 K/uL (0-0.5) 11/15/21 Immature Granulocyte % (Auto) 0.4 % 11/15/21 Neutrophils # (Auto) 13.80 K/uL (1.4-6.5) H 11/15/21 Lymphocytes # (Auto) 1.35 K/uL (1.2-3.4) 11/15/21 Monocytes # (Auto) 0.46 K/uL (0.11-0.59) 11/15/21 Eosinophils # (Auto) 0.04 K/uL (0-0.5) 11/15/21 Basophils # (Auto) 0.02 K/uL (0-0.2) 11/15/21 Immature Granulocyte # (Auto) 0.07 K/uL (0.00-0.02) H 11/15/21 Na 138 mmol/L (136-145) 11/15/21 K 3.4 mmol/L (3.5-5.1) L 11/15/21 Cl 102 mmol/L (98-107) 11/15/21 CO2 26 mmol/L (21-32) 11/15/21 Anion Gap 10 (3-11) 11/15/21 BUN 11 mg/dl (6-23) 11/15/21 Creatinine 0.86 mg/dl (0.6-1.4) 11/15/21 BUN/Creatinine Ratio 12.8 (10-20) 11/15/21 Glucose Level 154 mg/dl (70-99(Fasting)) H 11/15/21 Ca 9.3 mg/dl (8.5-10.1) 11/15/21 Total Bilirubin 2.0 mg/dl (0.2-1.0) H 11/15/21 AST/SGOT 13 U/L (13-39) 11/15/21 ALT/SGPT 13 U/L (7-52) 11/15/21 Alkaline Phosphatase 150 U/L (34-104) H 11/15/21 Total Protein 8.0 gm/dl (6.0-8.3) 11/15/21 Albumin 4.0 gm/dl (3.4-5.0) 11/15/21 Globulin 4.0 gm/dl (2.5-4.0) 11/15/21 Albumin/Globulin Ratio 1.0 (0.9-2) 11/15/21 Total CK 29 U/L (30-223) L 11/15/21 Procalcitonin < 0.05 ng/ml (0-0.5) 11/15/21 SARS-CoV-2, RNA, NAAT NEGATIVE (NEGATIVE) 11/15/21 Chest X-Ray 11/15/21 Code Status & VTE Plan Code Status FULL CODE VTE Prophylaxis Plan VTE Prophylaxis will be ordered: Yes Supervising Physician Co-Signing Physician Notes Date of Service: November 15, 2021 History and physical exam performed by me History notable for 70-year-old lady with hypothyroidism, prediabetes, RANDALL on BiPAP, atrial fibrillation, hypertension, hypospadias, urethral stricture status post repair, recent hospitalization for right cerebellar hemorrhagic stroke in August in which he was transferred to [facility] who presented today with abdominal pain that started around 4 AM with distention and nausea. Patient has been on 4 L since discharge from [place] and rehab. Has been changed a few times in the past couple of weeks. Was reported to have urinary retention despite Devries on presentation necessitating changing Devries. Had difficulty with Devries insertion requiring urology insertion. On exam, General: Drowsy ( reported he had received morphine) but arousable, no acute distress and not ill appearing Eyes: PERRL, conjunctivae normal, not pale, anicteric sclerae, EOM intact bilaterally ENMT: External ear and nose normal, oropharynx normal Respiratory: Normal respiratory effort, no respiratory distress, lungs clear to auscultation, no crackles and no wheezes Cardiovascular: Irregulary irregular S1 S2 Gastrointestinal (Abdomen): Abdomen is mildly distended, soft, tender to palpation, normal bowel sounds Musculoskeletal: +pedal edema Genitourinary: Devries in situ with blood tinged urine. Blood around penile opening Neurologic: Drowsy but arousable, PERRL, EOMI, No focal weakness, sensation grossly intact Psychiatric: Alert and oriented x 3, euthymic affect, no depressed affect Lab work notable for WBC of 15, potassium of 3.4, alkaline phosphatase of 150, total bilirubin of 2, urine had positive nitrite and esterase more than [address] abdomen and pelvis noted distended bladder despite containing Devries balloon, enlarged prostate, mild wall thickening on the right anterior aspect of the bladder that is nonspecific, equivocal defect within bladder wall with multiple small pockets of low-attenuation fluid within the space of Retzius. Bladder injury will be difficult to exclude. Other findings include bilateral nephrolithiasis, small bilateral pleural effusion. Urinary retention Possible urinary tract infection Possible bladder wall injury Continue ceftriaxone for now Follow-up urine culture and blood culture Pain control. Considering tenderness and CT abdomen findings, I asked Dr. Petersen to reevaluate patient. Continue to hold Eliquis for now Agree with other plans as detailed by Yolanda Miranda PA-C
[2021-11-15] MEDS ORDERED: ALUMINUM/MAGNESIUM SUSP 30 ML UDC PO PRN (17:05)
[2021-11-15] MEDS ORDERED: CARBOHYDRATES FOR HYPOGLYCEMIA PO PRN (17:05)
[2021-11-15] MEDS ORDERED: POLYETHYLENE (MIRALAX) 17 GM PACK PO PRN (17:05)
[2021-11-15] MEDS ORDERED: ONDANSETRON INJ 2 MG/ML 2 ML VIAL IV PRN (17:05)
[2021-11-15] MEDS ORDERED: GLUCOSE 10 TABS/TUBE PO PRN (17:05)
[2021-11-15] MEDS ORDERED: DEXTROSE 50% 50 ML SYRINGE IV PRN (17:05)
[2021-11-15] MEDS ORDERED: GLUCAGON FOR INJ 1 MG VIAL SQ PRN (17:05)
[2021-11-15] MEDS ORDERED: MAGNESIUM HYDROXIDE SUSP 30 ML UDC PO PRN (17:05)
[2021-11-15] MEDS ORDERED: ACETAMINOPHEN 325 MG TAB PO PRN (17:05)
[2021-11-15] MEDS ORDERED: GLUCOSE 40% GEL 15 GM TUBE PO PRN (17:05)
--- NOTE | 2021-11-15 17:13 | Communication Note ---
Date of Service: November 15, 2021 History and physical exam performed by me History notable for 70-year-old lady with hypothyroidism, prediabetes, RANDALL on BiPAP, atrial fibrillation, hypertension, hypospadias, urethral stricture status post repair, recent hospitalization for right cerebellar hemorrhagic stroke in August in which he was transferred to [facility] who presented today with abdominal pain that started around 4 AM with distention and nausea. Patient has been on 4 L since discharge from [place] and rehab. Has been changed a few times in the past couple of weeks. Was reported to have urinary retention despite Fernandez on presentation necessitating changing Fernandez. Had difficulty with Fernandez insertion requiring urology insertion. On exam, General: Drowsy ( reported he had received morphine) but arousable, no acute distress and not ill appearing Eyes: PERRL, conjunctivae normal, not pale, anicteric sclerae, EOM intact bilaterally ENMT: External ear and nose normal, oropharynx normal Respiratory: Normal respiratory effort, no respiratory distress, lungs clear to auscultation, no crackles and no wheezes Cardiovascular: Irregulary irregular S1 S2 Gastrointestinal (Abdomen): Abdomen is mildly distended, soft, tender to palpation, normal bowel sounds Musculoskeletal: +pedal edema Genitourinary: Fernandez in situ with blood tinged urine. Blood around penile opening Neurologic: Drowsy but arousable, PERRL, EOMI, No focal weakness, sensation grossly intact Psychiatric: Alert and oriented x 3, euthymic affect, no depressed affect Lab work notable for WBC of 15, potassium of 3.4, alkaline phosphatase of 150, total bilirubin of 2, urine had positive nitrite and esterase more than [address] abdomen and pelvis noted distended bladder despite containing Fernandez balloon, enlarged prostate, mild wall thickening on the right anterior aspect of the bladder that is nonspecific, equivocal defect within bladder wall with multiple small pockets of low-attenuation fluid within the space of Retzius. Bladder injury will be difficult to exclude. Other findings include bilateral nephrolithiasis, small bilateral pleural effusion. Urinary retention Possible urinary tract infection Possible bladder wall injury Continue ceftriaxone for now Follow-up urine culture and blood culture Pain control. Considering tenderness and CT abdomen findings, I asked Dr. Petersen to reevaluate patient. Continue to hold Eliquis for now Agree with other plans as detailed by Yolanda Miranda PA-C
[2021-11-15] MEDS: INSULIN ASPART PER UNIT SC SCH ×2 (17:35→21:27)
[2021-11-15] MEDS: SODIUM CHLORIDE 0.9% 1000ML 1,000 ML IV SCH (18:09)
[2021-11-15] MEDS: cefTRIAXone SODIUM 2,000 MG in DEXTROSE 5% 50 ML IV SCH (18:11)
[2021-11-15] MEDS: POTASSIUM CHLORIDE / WTR 10 MEQ/100 ML PLCT IV SCH ×2 (18:22→21:26)
[2021-11-15] MEDS: FINASTERIDE 5 MG TAB PO SCH (21:29)
[2021-11-15] MEDS: DOCUSATE SODIUM 100 MG CAP PO SCH (21:31)
[2021-11-15] MEDS: carvediloL 12.5 MG TAB PO SCH (21:31)
[2021-11-15] MEDS: hydrALAZINE TAB 50 MG TAB PO SCH (21:31)
[2021-11-15] MEDS: TERAZOSIN HCL 5 MG CAP PO SCH (21:32)
[2021-11-16] MEDS: POTASSIUM CHLORIDE / WTR 10 MEQ/100 ML PLCT IV SCH (05:03)
[2021-11-16] MEDS: SODIUM CHLORIDE 0.9% 1000ML 1,000 ML IV SCH ×2 (06:08→17:41)
[2021-11-16] MEDS: hydrALAZINE TAB 50 MG TAB PO SCH ×3 (06:09→20:50)
[2021-11-16] MEDS: LEVOTHYROXINE SODIUM 100 MCG TABLET PO SCH (06:09)
[2021-11-16 07:03] LABS: Basophils # (auto) 0.02 K/uL (0-0.2); Basophils % (auto) 0.2 %; Eosinophils # (auto) 0.13 K/uL (0-0.5); Eosinophils % (auto) 1.2 %; Hematocrit (blood only) 41.8 % (42-52); Hemoglobin 13.9 g/dL (14.0-18.0); Immature Granulocytes # (auto) 0.03 K/uL (0.00-0.02); Immature Granulocytes % (auto) 0.3 %; Lymphocytes # (auto) 2.32 K/uL (1.2-3.4); Lymphocytes % (auto) 21.3 %; Mean Corpuscular Hemoglobin 32.4 pg (25-34); Mean Corpuscular Hgb Conc 33.3 g/dL (32-36); Mean Corpuscular Volume 97.4 fL (80-100); Monocytes # (auto) 0.35 K/uL (0.11-0.59); Monocytes % (auto) 3.2 %; Neutrophils # (auto) 8.03 K/uL (1.4-6.5); Neutrophils % (auto) 73.8 %; Platelet Count 206 K/uL (130-400); RDW Coefficient of Variation 15.1 % (11.5-14.5); RDW Standard Deviation 53.7 fL (36.4-46.3); Red Blood Count 4.29 M/uL (4.7-6.1); White Blood Count 10.88 K/uL (4.8-10.8)
[2021-11-16 07:24] LABS: Albumin Globulin Ratio 0.9 (0.9-2); Albumin Level 3.1 gm/dl (3.4-5.0); BUN Creatinine Ratio 15.2 (10-20); Bilirubin,Total 1.5 mg/dl (0.2-1.0); Calcium 8.4 mg/dl (8.5-10.1); Creatinine Clr Calc Pharmacy 87.4 ml/min; Est GFR (African American) 89.1 ml/min; Est GFR (Non-African American) 76.8 ml/min; Globulin 3.3 gm/dl (2.5-4.0); Magnesium 1.8 mg/dl (1.7-2.4); Potassium 3.5 mmol/L (3.5-5.1); Total Protein 6.4 gm/dl (6.0-8.3)
[2021-11-16] MEDS: INSULIN ASPART PER UNIT SC SCH ×4 (09:02→20:46)
[2021-11-16] MEDS: aMILoride HCL 5 MG TAB PO SCH (09:27)
[2021-11-16] MEDS: DOCUSATE SODIUM 100 MG CAP PO SCH ×2 (09:27→20:49)
[2021-11-16] MEDS: LOSARTAN POTASSIUM 50 MG TAB PO SCH (09:28)
[2021-11-16] MEDS: LORATADINE 10 MG TAB PO SCH (09:28)
[2021-11-16] MEDS: ISOSORBIDE MONO EXTENDED REL 60 MG TABCR PO SCH (09:28)
[2021-11-16] MEDS: DIGOXIN 0.125 MG TAB PO SCH (09:28)
[2021-11-16] MEDS: carvediloL 12.5 MG TAB PO SCH ×2 (10:37→20:49)
--- NOTE | 2021-11-16 15:22 | Urology Progress Note ---
Date of Service November 16, 2021 Assessment & Plan (1) Urinary retention: Plan: 71yo M who presented with urinary retention and had a devries catheter placed at bedside in the ED and was admitted due to persistent lower abdominal pain despite devries catheter placement. He also developed hematuria, which was likely secondary to trauma and difficult catheterization. - Still with suprapubic discomfort today, but has improved since yesterday. - Urine has cleared. Devries currently draining yellow urine. - Afebrile, Labs reviewed - Wbc 10.88, Creatinine 0.99 - Urine culture preliminary gram neg bacilli; Blood cultures prelim NGTD. On IV Ceftriaxone. Plan- - Maintain Devries catheter. - Continue antibiotics and tailor as culture data becomes available. - Continue supportive care and pain management. - Will arrange outpatient follow-up with urology for catheter exchange, possible voiding trial. - Thank you for allowing us to participate in the acute care of Mr. Edwards. Please reconsult us with additional questions, concerns or changes in patient status. Admission and Anticipated Discharge Date Admission Date: November 15, 2021 Subjective Pt examined at bedside this afternoon. Awake, resting in bed on arrival. No acute distress. Devries catheter intact, draining yellow urine. Still with suprapubic discomfort/tenderness today, but improved since yesterday. Review of Systems Constitutional: as per Subjective / HPI Genitourinary: + as per Subjective / HPI Physical Exam Constitutional: no acute distress Respiratory: no respiratory distress and no labored breathing Neurologic: awake Psychiatric: Orientation: alert, oriented x 3 and cooperative Genitourinary: Devries catheter intact Results & Data ([facility]) Vital Signs (Past 12 Hours) Vital Signs Temp Pulse Pulse Resp BP Pulse Ox 11/16/21 11:15 36.8 C 82 18 101/65 91 11/16/21 09:28 84 11/16/21 07:29 84 11/16/21 06:39 36.4 C L 83 18 135/83 90 11/16/21 06:07 83 135/83 PG Care Time/CCT Total # of Minutes Spent Total Time Spent with Patient: Total time spent is greater than 50% in coordination of care (as documented) at patient's floor/unit and/or counseling patient: Coding Level of Care Code 46578 Subseq Hosp Care Lvl 2 Diagnoses Urinary retention R33.9
--- NOTE | 2021-11-16 16:11 | Hospitalist Progress Note ---
Date of Service November 16, 2021 Assessment & Plan (1) Acute bilateral lower abdominal pain: (2) Urinary retention: (3) Hx of intracranial hemorrhage: (4) Hematuria: Plan: Patient is a 71 yr male with H/O Recent ICH 08/2021 with RHP, chronic afib now back on anticoagulation with eliquis, HTN, HLD hypothyroidism, T2DM, RANDALL, obesity, chronic urinary retention 2/2 hypospadias and stricture s/p surgical repair who presents to ED 2/2 abdominal pain Urinary Retention Hematuria due to trauma, difficult catheterization H/O Hypospadias and stricture status postsurgical repair --CT ABD:Distended bladder despite containing a Fernandez balloon. Enlarged prosta te. Mild wall thickening of the right anterior aspect of the bladder is nonspecific and could be evaluated with cystoscopy. Equivocal defect within the bladder wall with multiple small pockets of low-attenuation fluid within the space of Retzius. A bladder injury would be difficult to exclude. Urology consultation is recommended. Bladder distention results in mild bilateral hydroureteronephrosis. Bilateral nephrolithiasis. No ureteral calculi. Fernandez Cath was exchanged on 11/15/21 Hematuria resolved Appreciate Urology Input Pin control Voiding trial as outpatient Needs follow-up with urology upon discharge Monitor CBC Complicated UTI Urine culture growing gram-negative bacilli Blood cultures no growth to date Empirically on Rocephin Hypokalemia Replace and monitor H/O intracranial hemorrhage 08/2021 with residual RHP 2/2 to hypertensive emergency Currently back on anticoagulation for chronic afib Previously had been on warfarin, currently on Eliquis Residual right-sided weakness as per patient Ambulatory dysfunction PT OT Fall precautions Chronic atrial fibrillation Continue digoxin and carvedilol Resume Apixaban as hematuria resolved Hypertension Continue amiloride, carvedilol, hydralazine, Imdur, losartan Monitor Mild pulmonary edema Small bilateral pleural effusions Resume Lasix Monitor volume status DM II HbA1c 6.5 Novolog per protocol RANDALL BiPAP at HS DVT Px: Eliquis Code Status FULL CODE Disposition PT/OT prior to discharge PCP: Christal Admission and Anticipated Discharge Date Admission Date: November 15, 2021 Subjective Seen and examined at bedside States having minimal cough Also reports having suprapubic abdominal pain Hematuria resolved Discussed with patient's family over the phone Denies any chest pain, dyspnea, dizziness, nausea Review of Systems Review of Systems: All systems reviewed & are unremarkable except as noted in Subjective Physical Exam Physical Exam: Physical Exam: Vitals signs as noted above General Appearance:Obese, no apparent distress Head: normocephalic, Atraumatic Eyes: normal inspection, EOMI Neck: supple, Trachea midline Respiratory/Chest: Normal breath sounds, CTA, No accessory muscle use Cardiovascular: S1, S2, No murmur Abdomen/GI:Soft, Non tender, Bowel sounds present Extremities/Musculoskeletal:normal inspection, 1+ B/L LE edema Neurologic/Psych:AAOX3, RLE 3-4/5 RUE slightly weak Skin: normal color, warm Results & Data Results & Data ([facility]) Vital Signs (Past 12 Hours) Vital Signs Temp Pulse Pulse Resp BP Pulse Ox 11/16/21 15:49 36.7 C 83 18 114/70 97 11/16/21 15:34 73 11/16/21 11:15 36.8 C 82 18 101/65 91 11/16/21 09:28 84 11/16/21 07:29 84 11/16/21 06:39 36.4 C L 83 18 135/83 90 11/16/21 06:07 83 135/83 Laboratory Results Short CBC 11/16/21 Range/Units 06:00 WBC 10.88 H (4.8-10.8) K/uL Hgb 13.9 L (14.0-18.0) g/dL Hct 41.8 L (42-52) % Plt Count 206 (130-400) K/uL BMP 11/16/21 06:00 Sodium 139 Potassium 3.5 Chloride 104 Carbon Dioxide 29 BUN 15 Creatinine 0.99 Glucose 124 H Calcium 8.4 L Liver Function 11/16/21 Range/Units 06:00 Total Bilirubin 1.5 H (0.2-1.0) mg/dl AST 10 L (13-39) U/L ALT 10 (7-52) U/L Alkaline Phosphatase 97 (34-104) U/L Albumin 3.1 L (3.4-5.0) gm/dl
[2021-11-16] MEDS ORDERED: FUROSEMIDE 20 MG TAB PO SCH (16:15)
[2021-11-16] MEDS: cefTRIAXone SODIUM 2,000 MG in DEXTROSE 5% 50 ML IV SCH (17:15)
[2021-11-16] MEDS: APIXABAN 5 MG TABLET PO SCH (20:48)
[2021-11-16] MEDS: TERAZOSIN HCL 5 MG CAP PO SCH (20:51)
[2021-11-16] MEDS: FINASTERIDE 5 MG TAB PO SCH (20:52)
[2021-11-17] MEDS: hydrALAZINE TAB 50 MG TAB PO SCH ×3 (06:11→21:14)
[2021-11-17] MEDS: SODIUM CHLORIDE 0.9% 1000ML 1,000 ML IV SCH ×2 (06:12→19:51)
[2021-11-17] MEDS: LEVOTHYROXINE SODIUM 75 MCG TABLET PO SCH (06:12)
[2021-11-17 07:28] LABS: Hematocrit (blood only) 39.4 % (42-52); Hemoglobin 12.9 g/dL (14.0-18.0); Mean Corpuscular Hemoglobin 31.2 pg (25-34); Mean Corpuscular Hgb Conc 32.7 g/dL (32-36); Mean Corpuscular Volume 95.4 fL (80-100); Mean Platelet Volume 9.9 fL (7.4-10.4); Platelet Count 185 K/uL (130-400); RDW Coefficient of Variation 14.9 % (11.5-14.5); RDW Standard Deviation 52.1 fL (36.4-46.3); Red Blood Count 4.13 M/uL (4.7-6.1); White Blood Count 8.48 K/uL (4.8-10.8)
[2021-11-17 08:16] LABS: BUN Creatinine Ratio 16.7 (10-20); Calcium 8.4 mg/dl (8.5-10.1); Creatinine Clr Calc Pharmacy 97.4 ml/min; Est GFR (African American) 99.9 ml/min; Est GFR (Non-African American) 86.2 ml/min; Potassium 3.7 mmol/L (3.5-5.1)
[2021-11-17] MEDS: APIXABAN 5 MG TABLET PO SCH ×2 (08:37→21:15)
[2021-11-17] MEDS: LOSARTAN POTASSIUM 50 MG TAB PO SCH (08:38)
[2021-11-17] MEDS: aMILoride HCL 5 MG TAB PO SCH (08:38)
[2021-11-17] MEDS: carvediloL 12.5 MG TAB PO SCH ×2 (08:39→21:14)
[2021-11-17] MEDS: DOCUSATE SODIUM 100 MG CAP PO SCH ×2 (08:39→21:15)
[2021-11-17] MEDS: LORATADINE 10 MG TAB PO SCH (08:39)
[2021-11-17] MEDS: DIGOXIN 0.125 MG TAB PO SCH (08:40)
[2021-11-17] MEDS: FLUTICASONE PROPIONATE NA SPR 16 GM BTL PRN (08:41)
[2021-11-17] MEDS: ISOSORBIDE MONO EXTENDED REL 60 MG TABCR PO SCH (08:41)
[2021-11-17] MEDS: INSULIN ASPART PER UNIT SC SCH ×4 (09:23→21:03)
[2021-11-17] MEDS: CEFEPIME 2,000 MG in SYRINGE 0 ML IV SCH ×2 (14:42→21:29)
--- NOTE | 2021-11-17 17:21 | Hospitalist Progress Note ---
Date of Service November 17, 2021 Assessment & Plan (1) Acute bilateral lower abdominal pain: (2) Urinary retention: (3) Hx of intracranial hemorrhage: (4) Hematuria: Plan: Patient is a 71 yr male with H/O Recent ICH 08/2021 with RHP, chronic afib now back on anticoagulation with eliquis, HTN, HLD hypothyroidism, T2DM, RANDALL, obesity, chronic urinary retention 2/2 hypospadias and stricture s/p surgical repair who presents to ED 2/2 abdominal pain Urinary Retention Hematuria due to trauma, difficult catheterization H/O Hypospadias and stricture status postsurgical repair --CT ABD:Distended bladder despite containing a Devries balloon. Enlarged prosta te. Mild wall thickening of the right anterior aspect of the bladder is nonspecific and could be evaluated with cystoscopy. Equivocal defect within the bladder wall with multiple small pockets of low-attenuation fluid within the space of Retzius. A bladder injury would be difficult to exclude. Urology consultation is recommended. Bladder distention results in mild bilateral hydroureteronephrosis. Bilateral nephrolithiasis. No ureteral calculi. Devries Cath was exchanged on 11/15/21 Hematuria resolved Appreciate Urology Input Pin control Voiding trial as outpatient Needs follow-up with urology upon discharge Monitor CBC Complicated UTI UTI due to indwelling Devries catheter Urine culture growing Morganella, probable Pseudomonas Blood cultures no growth to date Empirically on Rocephin>> changed to cefepime Hypokalemia Replace and monitor H/O intracranial hemorrhage 08/2021 with residual RHP 2/2 to hypertensive emergency Currently back on anticoagulation for chronic afib Previously had been on warfarin, currently on Eliquis Residual right-sided weakness as per patient Ambulatory dysfunction PT OT Fall precautions Chronic atrial fibrillation Continue digoxin and carvedilol Resume Apixaban as hematuria resolved Hypertension Continue amiloride, carvedilol, hydralazine, Imdur, losartan Monitor Mild pulmonary edema Small bilateral pleural effusions Resume Lasix Monitor volume status DM II HbA1c 6.5 Novolog per protocol RANDALL BiPAP at HS DVT Px: Eliquis Code Status FULL CODE Disposition PT/OT prior to discharge PCP: Christal Admission and Anticipated Discharge Date Admission Date: November 16, 2021 Subjective Patient is seen and examined at bedside States feeling better today Abdominal pain improved Minimal clots in devries Discussed with patient's family at bedside Denies any chest pain, dyspnea, dizziness, nausea Review of Systems Review of Systems: All systems reviewed & are unremarkable except as noted in Subjective Physical Exam Physical Exam: Physical Exam: Vitals signs as noted above General Appearance:Obese, no apparent distress Head: normocephalic, Atraumatic Eyes: normal inspection, EOMI Neck: supple, Trachea midline Respiratory/Chest: Normal breath sounds, CTA, No accessory muscle use Cardiovascular: S1, S2, No murmur Abdomen/GI:Soft, Non tender, Bowel sounds present Extremities/Musculoskeletal:normal inspection, 1+ B/L LE edema Neurologic/Psych:AAOX3, RLE 3-4/5 RUE slightly weak Skin: normal color, warm Results & Data Results & Data ([facility]) Vital Signs (Past 12 Hours) Vital Signs Temp Pulse Pulse Pulse Resp BP BP 11/17/21 15:54 72 11/17/21 15:35 11/17/21 15:11 36.8 C 74 18 187/76 H 11/17/21 14:33 11/17/21 11:14 36.6 C 81 14 143/75 H 11/17/21 08:40 79 11/17/21 07:40 36.4 C L 70 74 20 138/83 11/17/21 06:00 36.7 C 78 18 178/91 H Pulse Ox Pulse Ox Pulse Ox 11/17/21 15:54 11/17/21 15:35 92 11/17/21 15:11 94 11/17/21 14:33 96 92 11/17/21 11:14 96 11/17/21 08:40 11/17/21 07:40 96 11/17/21 06:00 93 Laboratory Results Short CBC 11/17/21 Range/Units 07:13 WBC 8.48 (4.8-10.8) K/uL Hgb 12.9 L (14.0-18.0) g/dL Hct 39.4 L (42-52) % Plt Count 185 (130-400) K/uL BMP 11/17/21 07:13 Sodium 136 Potassium 3.7 Chloride 103 Carbon Dioxide 28 BUN 15 Creatinine 0.90 Glucose 120 H Calcium 8.4 L
[2021-11-17] MEDS: TERAZOSIN HCL 5 MG CAP PO SCH (21:14)
[2021-11-17] MEDS: FINASTERIDE 5 MG TAB PO SCH (21:16)
[2021-11-18] MEDS: hydrALAZINE TAB 50 MG TAB PO SCH ×4 (05:58→21:24)
[2021-11-18] MEDS: LEVOTHYROXINE SODIUM 100 MCG TABLET PO SCH (05:58)
[2021-11-18 07:57] LABS: Hemoglobin 14.2 g/dL (14.0-18.0); Mean Corpuscular Hemoglobin 31.6 pg (25-34); Mean Corpuscular Volume 95.8 fL (80-100); Mean Platelet Volume 10.3 fL (7.4-10.4); Platelet Count 235 K/uL (130-400); RDW Coefficient of Variation 14.6 % (11.5-14.5); RDW Standard Deviation 51.5 fL (36.4-46.3); Red Blood Count 4.49 M/uL (4.7-6.1); White Blood Count 7.47 K/uL (4.8-10.8)
[2021-11-18] MEDS: INSULIN ASPART PER UNIT SC SCH ×4 (08:14→21:25)
[2021-11-18 08:26] LABS: BUN Creatinine Ratio 14.6 (10-20); Creatinine Clr Calc Pharmacy 107.5 ml/min; Est GFR (African American) 103.8 ml/min; Est GFR (Non-African American) 89.6 ml/min; Potassium 3.7 mmol/L (3.5-5.1)
[2021-11-18] MEDS: aMILoride HCL 5 MG TAB PO SCH (08:46)
[2021-11-18] MEDS: LORATADINE 10 MG TAB PO SCH (08:46)
[2021-11-18] MEDS: ISOSORBIDE MONO EXTENDED REL 60 MG TABCR PO SCH (08:47)
[2021-11-18] MEDS: DIGOXIN 0.125 MG TAB PO SCH (08:47)
[2021-11-18] MEDS: carvediloL 12.5 MG TAB PO SCH ×2 (08:47→21:25)
[2021-11-18] MEDS: LOSARTAN POTASSIUM 50 MG TAB PO SCH (08:47)
[2021-11-18] MEDS: APIXABAN 5 MG TABLET PO SCH ×2 (08:48→21:24)
[2021-11-18] MEDS: SODIUM CHLORIDE 0.9% 1000ML 1,000 ML IV SCH (08:48)
[2021-11-18] MEDS: DOCUSATE SODIUM 100 MG CAP PO SCH ×2 (08:48→21:25)
[2021-11-18] MEDS: FLUTICASONE PROPIONATE NA SPR 16 GM BTL PRN (08:54)
[2021-11-18] MEDS: CEFEPIME 2,000 MG in SYRINGE 0 ML IV SCH ×2 (11:16→21:24)
[2021-11-18] MEDS ORDERED: POLYETHYLENE (MIRALAX) 17 GM PACK PO ONE (11:59)
--- NOTE | 2021-11-18 17:40 | Hospitalist Progress Note ---
Date of Service November 18, 2021 Assessment & Plan (1) Acute bilateral lower abdominal pain: (2) Urinary retention: (3) Hx of intracranial hemorrhage: (4) Hematuria: Plan: Patient is a 71 yr male with H/O Recent ICH 08/2021 with RHP, chronic afib now back on anticoagulation with eliquis, HTN, HLD hypothyroidism, T2DM, RANDALL, obesity, chronic urinary retention 2/2 hypospadias and stricture s/p surgical repair who presents to ED 2/2 abdominal pain Urinary Retention Hematuria due to trauma, difficult catheterization H/O Hypospadias and stricture status postsurgical repair --CT ABD:Distended bladder despite containing a Fernandez balloon. Enlarged prosta te. Mild wall thickening of the right anterior aspect of the bladder is nonspecific and could be evaluated with cystoscopy. Equivocal defect within the bladder wall with multiple small pockets of low-attenuation fluid within the space of Retzius. A bladder injury would be difficult to exclude. Urology consultation is recommended. Bladder distention results in mild bilateral hydroureteronephrosis. Bilateral nephrolithiasis. No ureteral calculi. Fernandez Cath was exchanged on 11/15/21 Appreciate Urology Input Pin control Voiding trial as outpatient Needs follow-up with urology upon discharge Monitor CBC Hematuria resolved Complicated UTI UTI due to indwelling Fernandez catheter Urine culture growing Morganella,Pseudomonas Blood cultures no growth to date Empirically on Rocephin>> changed to cefepime Hypokalemia Replace and monitor H/O intracranial hemorrhage 08/2021 with residual RHP 2/2 to hypertensive emergency Currently back on anticoagulation for chronic afib Previously had been on warfarin, currently on Eliquis Residual right-sided weakness as per patient Ambulatory dysfunction PT OT Fall precautions Chronic atrial fibrillation Continue digoxin and carvedilol Resume Apixaban as hematuria resolved Hypertension Continue amiloride, carvedilol, hydralazine, Imdur, losartan Monitor Mild pulmonary edema Small bilateral pleural effusions Resume Lasix Monitor volume status DM II HbA1c 6.5 Novolog per protocol RANDALL BiPAP at HS DVT Px: Eliquis Code Status FULL CODE Disposition PT/OT prior to discharge PCP: Christal Admission and Anticipated Discharge Date Admission Date: November 16, 2021 Subjective Patient is seen and examined at bedside Reports constipation Denies abd pain today No hematuria Denies any chest pain, dyspnea, dizziness, nausea Review of Systems Review of Systems: All systems reviewed & are unremarkable except as noted in Subjective Physical Exam Physical Exam: Physical Exam: Vitals signs as noted above General Appearance:Obese, no apparent distress Head: normocephalic, Atraumatic Eyes: normal inspection, EOMI Neck: supple, Trachea midline Respiratory/Chest: Normal breath sounds, CTA, No accessory muscle use Cardiovascular: S1, S2, No murmur Abdomen/GI:Soft, Non tender, Bowel sounds present Extremities/Musculoskeletal:normal inspection, 1+ B/L LE edema Neurologic/Psych:AAOX3, RLE 3-4/5 RUE slightly weak Skin: normal color, warm Results & Data Results & Data ([facility]) Vital Signs (Past 12 Hours) Vital Signs Temp Pulse Pulse Resp BP BP Pulse Ox 11/18/21 14:56 36.2 C L 66 18 181/91 H 95 11/18/21 11:16 36.6 C 71 17 162/79 H 94 11/18/21 08:47 85 11/18/21 07:19 36.7 C 86 18 185/100 H 95 11/18/21 06:18 100 H Laboratory Results Short CBC 11/18/21 Range/Units 06:59 WBC 7.47 (4.8-10.8) K/uL Hgb 14.2 (14.0-18.0) g/dL Hct 43.0 (42-52) % Plt Count 235 (130-400) K/uL BMP 11/18/21 06:59 Sodium 139 Potassium 3.7 Chloride 104 Carbon Dioxide 29 BUN 12 Creatinine 0.82 Glucose 117 H Calcium 9.0
[2021-11-18] MEDS: TERAZOSIN HCL 5 MG CAP PO SCH (21:24)
[2021-11-18] MEDS: FINASTERIDE 5 MG TAB PO SCH (21:25)
[2021-11-19] MEDS: hydrALAZINE TAB 50 MG TAB PO SCH (06:16)
[2021-11-19] MEDS: LEVOTHYROXINE SODIUM 75 MCG TABLET PO SCH (06:16)
[2021-11-19] MEDS: INSULIN ASPART PER UNIT SC SCH ×2 (08:26→11:51)
[2021-11-19] MEDS: DOCUSATE SODIUM 100 MG CAP PO SCH (08:29)
[2021-11-19] MEDS: aMILoride HCL 5 MG TAB PO SCH (08:29)
[2021-11-19] MEDS: APIXABAN 5 MG TABLET PO SCH (08:29)
[2021-11-19] MEDS: DIGOXIN 0.125 MG TAB PO SCH (08:29)
[2021-11-19] MEDS: LOSARTAN POTASSIUM 50 MG TAB PO SCH (08:30)
[2021-11-19] MEDS: ISOSORBIDE MONO EXTENDED REL 60 MG TABCR PO SCH (08:30)
[2021-11-19] MEDS: LORATADINE 10 MG TAB PO SCH (08:30)
[2021-11-19] MEDS: carvediloL 12.5 MG TAB PO SCH (08:30)
[2021-11-19] MEDS: FLUTICASONE PROPIONATE NA SPR 16 GM BTL PRN (08:31)
[2021-11-19 10:00] LABS: BUN Creatinine Ratio 14.5 (10-20); Calcium 8.9 mg/dl (8.5-10.1); Creatinine Clr Calc Pharmacy 127.7 ml/min; Est GFR (African American) 111.5 ml/min; Est GFR (Non-African American) 96.2 ml/min; Potassium 3.4 mmol/L (3.5-5.1)
[2021-11-19] MEDS ORDERED: POTASSIUM CHLORIDE CRTAB 20 MEQ TABCR PO ONE (10:36)
[2021-11-19] MEDS: CEFEPIME 2,000 MG in SYRINGE 0 ML IV SCH (11:08)
[2021-11-19] MEDS ORDERED: SENNA 8.6 MG TAB PO SCH (12:00)
--- NOTE | 2021-11-19 13:43 | Hospitalist Progress Note ---
Date of Service November 19, 2021 Assessment & Plan (1) Acute bilateral lower abdominal pain: (2) Urinary retention: (3) Hx of intracranial hemorrhage: (4) Hematuria: Plan: Patient is a 71 yr male with H/O Recent ICH 08/2021 with RHP, chronic afib now back on anticoagulation with eliquis, HTN, HLD hypothyroidism, T2DM, RANDALL, obesity, chronic urinary retention 2/2 hypospadias and stricture s/p surgical repair who presents to ED 2/2 abdominal pain Urinary Retention Hematuria due to trauma, difficult catheterization H/O Hypospadias and stricture status postsurgical repair --CT ABD:Distended bladder despite containing a Fernandez balloon. Enlarged prosta te. Mild wall thickening of the right anterior aspect of the bladder is nonspecific and could be evaluated with cystoscopy. Equivocal defect within the bladder wall with multiple small pockets of low-attenuation fluid within the space of Retzius. A bladder injury would be difficult to exclude. Urology consultation is recommended. Bladder distention results in mild bilateral hydroureteronephrosis. Bilateral nephrolithiasis. No ureteral calculi. Fernandez Cath was exchanged on 11/15/21 Appreciate Urology Input Pin control Voiding trial as outpatient Monitor CBC Hematuria resolved Advised to follow-up with urology upon discharge in 1-2 weeks Complicated UTI UTI due to indwelling Fernandez catheter Urine culture growing Morganella,Pseudomonas Blood cultures no growth to date Empirically on Rocephin>> changed to cefepime Plan to transition to Ciprofloxacin to complete the course Hypokalemia Replace and monitor H/O intracranial hemorrhage 08/2021 with residual RHP 2/2 to hypertensive emergency Currently back on anticoagulation for chronic afib Previously had been on warfarin, currently on Eliquis Residual right-sided weakness as per patient Ambulatory dysfunction PT OT: Refuses Rehab. Prefers to be discharged home with Home PT Fall precautions Chronic atrial fibrillation Continue digoxin and carvedilol Resumed Apixaban Hypertension Continue amiloride, carvedilol, hydralazine, Imdur, losartan Monitor Mild pulmonary edema Small bilateral pleural effusions Continue Lasix Monitor volume status DM II HbA1c 6.5 Novolog per protocol RANDALL BiPAP at HS DVT Px: Eliquis Code Status FULL CODE Disposition Refused Rehab Home with Home Health PCP: Christal Admission and Anticipated Discharge Date Admission Date: November 16, 2021 Subjective Patient is seen and examined at bedside States feeling well Denies any chest pain, dyspnea, dizziness, nausea, abd pain Discussed with patient's family over the phone No recurrence of hematuria +Flatus Review of Systems Review of Systems: All systems reviewed & are unremarkable except as noted in Subjective Physical Exam Physical Exam: Physical Exam: Vitals signs as noted above General Appearance:Obese, no apparent distress Head: normocephalic, Atraumatic Eyes: normal inspection, EOMI Neck: supple, Trachea midline Respiratory/Chest: Normal breath sounds, CTA, No accessory muscle use Cardiovascular: S1, S2, No murmur Abdomen/GI:Soft, Non tender, Bowel sounds present Extremities/Musculoskeletal:normal inspection, 1+ B/L LE edema Neurologic/Psych:AAOX3, RLE 3-4/5 RUE slightly weak Skin: normal color, warm Results & Data Results & Data ([facility]) Vital Signs (Past 12 Hours) Vital Signs Temp Pulse Pulse Resp BP BP Pulse Ox 11/19/21 11:01 36.6 C 74 17 171/97 H 95 11/19/21 08:29 81 11/19/21 07:36 36.4 C L 74 18 188/103 H 92 11/19/21 06:34 88 11/19/21 02:30 36.4 C L 74 16 176/79 H 97 Laboratory Results BMP 11/19/21 08:19 Sodium 139 Potassium 3.4 L Chloride 102 Carbon Dioxide 31 BUN 10 Creatinine 0.69 Glucose 118 H Calcium 8.9
--- NOTE | 2021-11-19 13:52 | XRay Report ---
XR KUB/Abdomen 1 view CLINICAL HISTORY: constipation. COMPARISON STUDY: 09/18/2021 TECHNIQUE: 2 supine radiographs FINDINGS: The bowel gas pattern is within normal limits without evidence for dilatation or obstruction. There i s no evidence for significant fecal stasis or fecal impaction. There is no evidence for organomegaly or gross intra-abdominal mass. No abnormal calcifications are seen along the course of the urinary tr acts bilaterally. No acute osseous pathology. IMPRESSION: 1. No acute intra-abdominal abnormality. ACT 112: Negative or not required by law. Electronically signed by: Timmy Bauer M.D. 11/19/2021 1:51 PM
[2021-11-19] MEDS ORDERED: hydrALAZINE TAB 50 MG TAB PO SCH (14:00)
--- NOTE | 2021-11-19 14:00 | Discharge Summary ---
Date of Service November 19, 2021 Admission HPI Per Admitting Provider This is a 71M who has a significant PMH of recent ICH 08/2021 with RHP, chronic afib now back on anticoagulation with eliquis, HTN, HLD hypothyroidism, T2DM, RANDALL, obesity, chronic urinary retention and hypospadias and stricture s/p surgical repair who presents to ED 2/2 abdominal pain that started at 4 a.m. Pain is located in suprapubic region. Also associated with distension and nausea. at bedside states devries was placed during hospitalization with intracranial hemorrhage due to incontinence. He has been following up with urology as outpatient. He had Devries catheter exchanged on 11/07/2021. According to at bedside they did have difficulty inserting Devries during the visit and it was very painful for patient. He did have noticeable hematuria since insertion that had since resolved. He has otherwise been doing quite well since hospitalization with hemorrhagic CVA. Of significance he was hospitalized 09/19 to 09/29/2021 at [facility] where he was transferred due to intraparenchymal hemorrhage. He did have repeat CAT scan on 10/25/2021 which revealed evolution of the right cerebellar hemorrhage and mild notable mass-effect with effacement of fourth ventricle and mild global volume loss. He was seen evaluated by cardiology did reinitiate anticoagulation due to chronic atrial fibrillation. at bedside feels he started Eliquis approximately on 11/05 or . She feels like he is at baseline in regards to his recent CVA. He does have right hemiplegia and she has been taking care of him. He does not have any difficulty swallowing or dysphagia. He does have mild difficulty with speech, but this is at baseline as well. In ED patient was significantly hypertensive and tachycardic on arrival. He did not take any of his home medications this morning including his Eliquis. He had Devries catheter in place which according to was draining apple juice colored urine. Ct a/p revealed Distended bladder despite containing a Devries balloon. Enlarged prostate. Mild wall thicken ing of the right anterior aspect of the bladder is nonspecific and could be evaluated with cystoscopy. Equivocal defect within the bladder wall with multiple small pockets of low-attenuation fluid within the space of Retzius. A bladder injury would be difficult to exclude. Urology consultation is recommended. Bladder distention results in mild bilateral hydroureteronephrosis. Urology was consulted to come remove and replace Devries. Initial attempt was unsuccessful. Dr. James then attempted and did successfully place a Devries catheter with guidewire. Since then patient has had hematuria and ER nurse has had to irrigate bladder. Despite Devries catheter placement he continues to have significant abdominal pain. Prior to presenting to ER patient's denies any noted fever, chills, sweats, lightheadedness, dizziness, chest pain, shortness of breath, URI symptoms, nausea, vomiting, or diarrhea. Admission Exam Per Admitting Provider On exam, General: Drowsy ( reported he had received morphine) but arousable, no acute distress and not ill appearing Eyes: PERRL, conjunctivae normal, not pale, anicteric sclerae, EOM intact bilaterally ENMT: External ear and nose normal, oropharynx normal Respiratory: Normal respiratory effort, no respiratory distress, lungs clear to auscultation, no crackles and no wheezes Cardiovascular: Irregulary irregular S1 S2 Gastrointestinal (Abdomen): Abdomen is mildly distended, soft, tender to palpation, normal bowel sounds Musculoskeletal: +pedal edema Genitourinary: Devries in situ with blood tinged urine. Blood around penile opening Neurologic: Drowsy but arousable, PERRL, EOMI, No focal weakness, sensation grossly intact Psychiatric: Alert and oriented x 3, euthymic affect, no depressed affect Principal Diagnosis Urinary Retention Hematuria Complicated urinary tract infection Constipation Hypokalemia Discharge Data Allergies Allergy/AdvReac Type Severity Reaction Status Date / Time amlodipine Allergy Severe LE Verified 11/15/21 12:34 swelling and calves got "rock hard" Dkfyuzi-[id number]-PjD Reductase Allergy Intermediate leg pains Verified 11/15/21 12:34 Inhibitor [Izofmzc-Zlk-Des Reductase Inhibitor] amoxicillin Allergy Mild RASH Verified 11/15/21 12:34 chlorhexidine Allergy Mild RASH, SKIN Verified 11/15/21 12:34 TURNED RED AND PEELED Penicillins Allergy Mild RASH Verified 11/15/21 12:34 Consultations 11/15/21 15:28 ED Decision to Admit Stat 11/15/21 15:39 Consult Urology Routine Ordered Studies 11/15/21 08:10 CT abd pelvis IV con only Stat Hospital Course (1) Acute bilateral lower abdominal pain: (2) Urinary retention: (3) Hx of intracranial hemorrhage: (4) Hematuria: Patient is a 71 yr male with H/O Recent ICH 08/2021 with RHP, chronic afib now back on anticoagulation with eliquis, HTN, HLD hypothyroidism, T2DM, RANDALL, obesity, chronic urinary retention 2/2 hypospadias and stricture s/p surgical repair who presents to ED 2/2 abdominal pain Urinary Retention Hematuria due to trauma, difficult catheterization H/O Hypospadias and stricture status postsurgical repair --CT ABD:Distended bladder despite containing a Devries balloon. Enlarged prostate. Mild wall thickening of the right anterior aspect of the bladder is n onspecific and could be evaluated with cystoscopy. Equivocal defect within the bladder wall with multiple small pockets of low-attenuation fluid within the space of Retzius. A bladder injury would be difficult to exclude. Urology consultation is recommended. Bladder distention results in mild bilateral hydroureteronephrosis. Bilateral nephrolithiasis. No ureteral calculi. Devries Cath was exchanged on 11/15/21 Appreciate Urology Input Pin control Voiding trial as outpatient Monitor CBC Hematuria resolved Advised to follow-up with urology upon discharge in 1-2 weeks Complicated UTI UTI due to indwelling Devries catheter Urine culture growing Morganella,Pseudomonas Blood cultures no growth to date Empirically on Rocephin>> changed to cefepime Plan to transition to Ciprofloxacin to complete the course Hypokalemia Replace and monitor H/O intracranial hemorrhage 08/2021 with residual RHP 2/2 to hypertensive emergency Currently back on anticoagulation for chronic afib Previously had been on warfarin, currently on Eliquis Residual right-sided weakness as per patient Ambulatory dysfunction PT OT: Refuses Rehab. Prefers to be discharged home with Home PT Fall precautions Chronic atrial fibrillation Continue digoxin and carvedilol Resumed Apixaban Hypertension Continue amiloride, carvedilol, hydralazine, Imdur, losartan Monitor Mild pulmonary edema Small bilateral pleural effusions Continue Lasix Monitor volume status DM II HbA1c 6.5 Novolog per protocol RANDALL BiPAP at HS DVT Px: Eliquis Code Status FULL CODE Disposition Refused Rehab Home with Home Health PCP: Christal Total Time Total Time Spent Total Time Spent (In Minutes): 46 minutes Discharge Plan Discharge Items Patient Disposition: Home - Home Health Services Reason For Visit: ABDOMINAL PAIN Discharge Diagnosis: Urinary Retention Hematuria Complicated urinary tract infection Constipation Hypokalemia Condition on Discharge: Good Activity: Per Instructions section Exercise/Sports: Gradually increase as tolerated Non-emergency contact: Primary Care Provider and Urologist Call non-emergency contact if: you have any medication questions, your symptoms worsen, your pain is concerning for you and you have a fever Follow-up/Referrals: Danilo Siegel MD [Primary Care Provider] - Diet: Carb Consistent or DM2, Heart Healthy and Low Sodium (2gm) Diet Texture: Easy to Chew Addtl Attending Provider Instructions: Follow-up with your primary care physician in 1 week Follow-up with your Urologist / in 1-2 weeks -- Final blood cultures are pending at the time of discharge. Follow-up with your physician for results. --Complete the antibiotic course (Ciprofloxacin) as prescribed Seek immediate medical attention if your symptoms reoccur or worsen Please take all medications as instructed on discharge list below. Please call if you have any questions or problems. You can reach a [facility] hospitalist on duty at [facility] 24 hours a day by calling [phone] Pending Studies at Discharge: Yes Studies:: Blood Cultures Stand-Alone Forms: My [facility], Smoking Cessation Medications and DC Order Prescriptions: New ciprofloxacin HCl 500 mg tablet 500 mg PO BID Qty: 6 RF: 0 sennosides [Senokot] 8.6 mg Tablet 8.6 mg PO QAM 7 Days Qty: 7 RF: 0 polyethylene glycol 3350 [Miralax] 17 gram powder in packet 17 g PO DAILY PRN (Reason: constipation) Qty: 30 RF: 0 Continued cyanocobalamin (vitamin B-12) 1,000 mcg Tablet 1,000 mcg PO QAM RF: 0 magnesium hydroxide [Milk of Magnesia] 400 mg/5 mL Suspension 15 ml PO DAILY PRN (Reason: Constipation) RF: 0 metformin 500 mg tablet 500 mg PO QAM RF: 0 levothyroxine 75 mcg tablet 75 mcg PO Q OTHER DAY RF: 0 amiloride 5 mg tablet 10 mg PO DAILY RF: 0 digoxin 125 mcg tablet 125 mcg PO DAILY RF: 0 losartan 100 mg tablet 100 mg PO DAILY RF: 0 finasteride 5 mg tablet 5 mg PO HS RF: 0 levothyroxine 100 mcg tablet 100 mcg PO Q OTHER DAY RF: 0 furosemide 20 mg Tablet 20 mg PO .MOTUWE& QOD PRN RF: 0 Repatha SureClick 140 mg/mL pen injector 140 mg SUBCUT Q14D RF: 0 carvedilol 12.5 mg tablet 12.5 mg PO BID RF: 0 isosorbide mononitrate 120 mg tablet extended release 24 hr 120 mg PO QAM RF: 0 hydralazine 100 mg tablet 100 mg PO Q8 RF: 0 fluticasone propionate [Flonase Allergy Relief] 50 mcg/actuation [place],S uspension 2 spray INTRANASAL BID PRN (Reason: ALLERGIES) RF: 0 docusate sodium 100 mg Tablet 100 mg PO BID RF: 0 loratadine 10 mg Tablet 10 mg PO DAILY RF: 0 sodium chloride 0.65 % Aerosol,[place] 2 spray INTRANASAL DIRECTED RF: 0 Eliquis 5 mg tablet 5 mg PO BID RF: 0 Repatha SureClick 140 mg/mL pen injector 140 mg SUBCUT .EVERY OTHER WEEK RF: 0 terazosin 5 mg capsule 10 mg PO HS RF: 0 Discharge Orders: Discharge Order (Routine); Ordered 11/19/21 Ordered By: Sandro Mantilla Admission Data Admit Date/Time: 11/16/21 18:04 Attending Provider: Sandro Mantilla Admit Provider: Danuta Oliveira I. Primary Care Provider: Danilo Siegel Other Providers: Jeramie Petersen ; Danuta Oliveira I. ; [facility]
== END 2021-11-19 14:50 | disposition home health service (06) | DRG 699 ==
LOC: ED 08:01 → 2N 08:01 → SUATTDRO 15:39 → 2N 16:37
DX: Y84.6 Urinary catheterization as the cause of abnormal reaction of the patient, or of later complication, without mention of misadventure at the time of the procedure; Z88.8 Allergy status to other drugs, medicaments and biological substances; N99.820 Postprocedural hemorrhage of a genitourinary system organ or structure following a genitourinary system procedure; Z79.890 Hormone replacement therapy; B96.89 Other specified bacterial agents as the cause of diseases classified elsewhere; J81.1 Chronic pulmonary edema; E11.9 Type 2 diabetes mellitus without complications; B96.5 Pseudomonas (aeruginosa) (mallei) (pseudomallei) as the cause of diseases classified elsewhere; I48.20 Chronic atrial fibrillation, unspecified; Z79.899 Other long term (current) drug therapy; E03.9 Hypothyroidism, unspecified; T83.091A Other mechanical complication of indwelling urethral catheter, initial encounter; N40.1 Benign prostatic hyperplasia with lower urinary tract symptoms; J90 Pleural effusion, not elsewhere classified; N39.0 Urinary tract infection, site not specified; R33.8 Other retention of urine; T83.511A Infection and inflammatory reaction due to indwelling urethral catheter, initial encounter; Y73.2 Prosthetic and other implants, materials and accessory gastroenterology and urology devices associated with adverse incidents; S37.30XA Unspecified injury of urethra, initial encounter; I10 Essential (primary) hypertension; E78.5 Hyperlipidemia, unspecified; G47.33 Obstructive sleep apnea (adult) (pediatric); Z79.84 Long term (current) use of oral hypoglycemic drugs; Z87.442 Personal history of urinary calculi; Z87.440 Personal history of urinary (tract) infections; E87.6 Hypokalemia; Z87.718 Personal history of other specified (corrected) congenital malformations of genitourinary system; K59.00 Constipation, unspecified; Z79.01 Long term (current) use of anticoagulants; Z88.3 Allergy status to other anti-infective agents; I69.151 Hemiplegia and hemiparesis following nontraumatic intracerebral hemorrhage affecting right dominant side; Z88.0 Allergy status to penicillin